=== PATIENT | female | born 1960 | race African-American/Black ===

== ENCOUNTER → 2017-04-02 | Outpatient (CLI) | payer OTHER, MEDICARE ==
--- NOTE | 2017-04-02 10:00 | RADIOLOGY REPORT (SQ) ---
EXAM DESCRIPTION: CT CHEST WITH COMPLETED DATE/TIME: 04/02/2017 9:12 am REASON FOR STUDY: LUNG CA (C34.12) C34.12 MALIGNANT NEOPLASM OF UPPER LOBE, LEFT BRONCHUS OR BOB COMPARISON: March 2016 TECHNIQUE: CT scan of the chest performed using helical scanning technique with dynamic intravenous contrast injection. Images reviewed with lung, soft tissue and bone windows. Reconstructed coronal and sagittal MPR images reviewed. All images stored on PACS. All CT scanners at this facility use dose modulation, iterative reconstruction, and/or weight based d osing when appropriate to reduce radiation dose to as low as reasonably achievable (ALARA). [facility]: Dose Right [facility]: CareDose [facility]: Dose Right [facility]: Teradose 4D [facility]: [employer] CONTRAST TYPE AND DOSE: contrast/concentration: Isovue 370.00 mg/ml; Total Contrast Delivered: 66.0 ml; Total Saline Delivered: 65.0 ml RENAL FUNCTION: Creatinine 0.9 RADIATION DOSE: Up-to-date CT equipment and radiation dose reduction techniques were employed. CTDIv ol: 4.4 - 9.2 mGy. DLP: 860 mGy-cm. . LIMITATIONS: None. FINDINGS: LUNGS AND PLEURA: The previously described postsurgical and post radiation changes in the left hemithorax with associated volume loss appears stable. No evidence for a recurrent mass is seen . The right lung remains clear. HILAR AND MEDIASTINAL STRUCTURES: No identified masses or abnormal nodes. HEART AND VASCULAR STRUCTURES: No aneurysm or dissection. No central pulmonary emboli. No pericardi al effusion. HARDWARE: Surgical clips are again identified in the left hilar region UPPER ABDOMEN: See results under abdominal CT scan THYROID AND OTHER SOFT TISSUES: No masses. No adenopathy. BONES: No significant finding. Postsurgical rib resections are again identified. OTHER: No other significant finding. IMPRESSION: Stable findings from the previous study. The previously described postsurgical and post radiation changes in the left hemithorax appears stable. No acute findings. Other findings as noted above TECHNICAL DOCUMENTATION: JOB ID: [id number] Quality ID # [id number]: Final reports with documentation of one or more dose reduction techniques (e.g., Au tomated exposure control, adjustment of the mA and/or kV according to patient size, use of iterative reconstruction technique) 2010 [employer]- All Rights Reserved
--- NOTE | 2017-04-02 10:28 | RADIOLOGY REPORT (SQ) ---
EXAM DESCRIPTION: CT ABD/PELVIS WITH IV ONLY COMPLETED DATE/TIME: 04/02/2017 9:12 am REASON FOR STUDY: LUNG CA (C34.12) C34.12 MALIGNANT NEOPLASM OF UPPER LOBE, LEFT BRONCHUS OR BOB COMPARISON: March 2016 TECHNIQUE: CT scan of the abdomen and pelvis performed using helical scanning technique with dynamic intravenous contrast injection. No oral contrast. Images reviewed with lung, soft tissue, and bone windows. Reconstructed coronal and sagittal MPR images reviewed. Delayed images for evaluation of the urinary system also acquired. All images stored on PACS. All CT scanners at this facility use dose modulation, iterative reconstruction, and/or weight based d osing when appropriate to reduce radiation dose to as low as reasonably achievable (ALARA). [facility]: Dose Right [facility]: CareDose [facility]: Dose Right [facility]: Teradose 4D [facility]: [employer] CONTRAST TYPE AND DOSE: 65 anusha Isovue 370 RENAL FUNCTION: Creatinine 0.9 RADIATION DOSE: . LIMITATIONS: None. FINDINGS: LOWER CHEST: No significant findings. No nodules or infiltrates. LIVER: Normal size. The previously described hypodensity in the right lobe of the liver most consist ent with an hemangioma appears stable. No other masses are identified. No dilated ducts. SPLEEN: Normal size. No focal lesions. PANCREAS: No masses. No significant calcifications. No adjacent inflammation or peripancreatic fluid collections. Pancreatic duct not dilated. GALLBLADDER: Status post cholecystectomy ADRENAL GLANDS: No significant masses or asymmetry. RIGHT KIDNEY AND URETER: No solid masses. No significant calcifications. No hydronephrosis or hyd roureter. LEFT KIDNEY AND URETER: No solid masses. No significant calcifications. No hydronephrosis or hydr oureter. AORTA AND VESSELS: No aneurysm. No dissection. Renal arteries, SMA, celiac without stenosis. RETROPERITONEUM: No retroperitoneal adenopathy, hemorrhage or masses. BOWEL AND PERITONEAL CAVITY: No masses or inflammatory changes. No free fluid or peritoneal masses. APPENDIX: Status post appendectomy PELVIS: No mass. No free fluid. Normal bladder. ABDOMINAL WALL: No masses. No hernias. BONES: No significant or acute findings. OTHER: No other significant finding. IMPRESSION: No significant interval changes compared to the previous study. No evidence for intra-a bdominopelvic metastatic disease. Findings as noted above TECHNICAL DOCUMENTATION: JOB ID: [id number] Quality ID # [id number]: Final reports with documentation of one or more dose reduction techniques (e.g., Au tomated exposure control, adjustment of the mA and/or kV according to patient size, use of iterative reconstruction technique) 2010 [employer]- All Rights Reserved
== END ==
LOC: RAD 08:30
PROVIDERS: ATTEND Internal Medicine
DX: C34.12 Malignant neoplasm of upper lobe, left bronchus or lung (principal)
CPT/HCPCS: 71260; 74177; 82565

== ENCOUNTER → 2018-04-04 | Outpatient (CLI) | payer OTHER, MEDICARE ==
--- NOTE | 2018-04-04 09:33 | RADIOLOGY REPORT (SQ) ---
EXAM DESCRIPTION: CT CHEST WITHOUT COMPLETED DATE/TIME: 04/04/2018 8:29 am REASON FOR STUDY: LUNG CA C34.12 MALIGNANT NEOPLASM OF UPPER LOBE, LEFT BRONCHUS OR BOB COMPARISON: 04/02/2017 TECHNIQUE: CT scan performed of the chest without intravenous contrast. Images reviewed with lung, soft tissue and bone windows. Reconstructed coronal and sagittal MPR images reviewed. All images st ored on PACS. All CT scanners at this facility use dose modulation, iterative reconstruction, and/or weight based d osing when appropriate to reduce radiation dose to as low as reasonably achievable (ALARA). [facility]: Dose Right [facility]: CareDose [facility]: Dose Right [facility]: Teradose 4D [facility]: [employer] RADIATION DOSE: CT Rad equipment meets quality standard of care and radiation dose reduction techniq ues were employed. CTDIvol: 3.8 mGy. DLP: 136 mGy-cm. mGy. LIMITATIONS: No technical limitations. FINDINGS: LUNGS AND PLEURA: Stable post operative and post radiation changes in the left hemithorax . Compensatory hypertrophy in the right lung. Minimal scattered areas of scar or atelectasis in the right middle and right lower lobes. No pneumothorax or pleural effusion. The central airways are carrie ar. HILAR AND MEDIASTINAL STRUCTURES: No significant interval changes. HEART AND VASCULAR STRUCTURES: No aneurysm. Stable small pericardial effusion. UPPER ABDOMEN: Stable hypoattenuated right hepatic lobe lesion. Prior cholecystectomy. Limited exa mination. THYROID AND OTHER SOFT TISSUES: No masses. No adenopathy. BONES: The osseous structures are stable in appearance. HARDWARE: None in the chest. OTHER: No other significant findings. IMPRESSION: 1 No significant interval changes since the prior examination dated 04/02/2017. 2. Stable post operative changes in the left hemithorax. 3. Additional stable findings as above. TECHNICAL DOCUMENTATION: JOB ID: [id number] Quality ID # [id number]: Final reports with documentation of one or more dose reduction techniques (e.g., Au tomated exposure control, adjustment of the mA and/or kV according to patient size, use of iterative reconstruction technique) 2010 [employer]- All Rights Reserved Reading location - IP/workstation name: [email or web address]
== END ==
LOC: RAD 07:42
PROVIDERS: ATTEND Internal Medicine
DX: C34.12 Malignant neoplasm of upper lobe, left bronchus or lung (principal)
CPT/HCPCS: 71250

== ENCOUNTER 2018-04-11 09:44 | Inpatient (IN) | payer OTHER, MEDICARE ==
[2018-04-11] MEDS ORDERED: DEXAMETHASONE SOD PHOS INJ 10 MG/1 ML VIAL IV ONE (09:50)
--- NOTE | 2018-04-11 10:27 | ER Document Report ---
ED General - General Chief Complaint: Altered Mental Status Stated Complaint: CONFUSION Time Seen by Provider: 04/11/18 09:49 TRAVEL OUTSIDE OF THE [place] IN LAST 30 DAYS: No - HPI Notes: 57-year-old female with a history of lung cancer presents to the emergency department after several weeks of headache nausea. Patient is being treated for lung cancer and was doing fine complained of a headache to her oncologist who then got a CT which showed multiple metastatic lesions. The oncologist sent the patient to the emergency department. His instructions were to give dexamethasone 10 mg. He has spoken with the primary care. Since her multiple lesions these are not really amenable to surgical excision and probably whole brain radiation will be needed. - Related Data Allergies/Adverse Reactions: No Known Allergies Allergy (Verified 04/11/18 09:44) Past Medical History - Social History Smoking Status: Never Smoker Chew tobacco use (# tins/day): No Frequency of alcohol use: None Drug Abuse: None Family History: None Patient has suicidal ideation: No Patient has homicidal ideation: No - Past Medical History Cardiac Medical History: Denies: Hx Coronary Artery Disease, Hx Heart Attack, Hx Hypertension Pulmonary Medical History: Denies: Hx Asthma, Hx Bronchitis, Hx COPD, Hx Pneumonia, Hx Tuberculosis Neurological Medical History: Denies: Hx Cerebrovascular Accident, Hx Seizures Renal/ Medical History: Denies: Hx Peritoneal Dialysis Malignancy Medical History: Reports: Hx Lung Cancer Musculoskeletal Medical History: Denies Hx Arthritis Past Surgical History: Reports: Hx Cholecystectomy - 1993, Hx Hysterectomy. Denies: Hx Pacemaker - Immunizations Hx Diphtheria, Pertussis, Tetanus Vaccination: No Hx Pneumococcal Vaccination: 08/08/12 Review of Systems - Review of Systems Cardiovascular: denies: Chest pain Respiratory: denies: Cough, Short of breath Gastrointestinal: Nausea. denies: Diarrhea, Constipation Neurological/Psychological: Headaches -: Yes All other systems reviewed and negative Physical Exam - Notes Notes: GENERAL_APPEARANCE: well_nourished, alert, cooperative, no_acute_distress, no_ obvious_discomfort. VITALS: reviewed, see vital signs table. HEAD: no_swelling\tenderness on the head. EYES: PERRL, EOMI, conjunctiva_clear. NOSE: no_nasal_discharge. MOUTH: (-)decreased moisture. THROAT: no_throat_inflammation, no_airway_obstruction. no_lymphadenopathy NECK: supple, no_neck_tenderness, (-)thyromegaly. BACK: no_back_tenderness. CHEST_WALL: no_chest_tenderness. Her thoracotomy scar left LUNGS: no_wheezing, no_rales, no_rhonchi, (-)accessory muscle use, good air exchange bilateral. HEART: normal_rate, normal_rhythm, normal_S1, normal_S2, (-)S3, (-)S4, no_ murmur, no_rub. ABDOMEN: normal_BS, soft, no_abd_tenderness, (-)guarding, (-)rebound, no_ organomegaly, no_abd_masses. EXTREMITIES: strength 5/5 in all_extremities, good pulses in all_extremities, no_swelling\tenderness in the extremities, no_edema. SKIN: warm, dry, good_color, no_rash. MENTAL_STATUS: speech_clear, oriented_X_3, normal_affect, responds_ appropriately to questions. NEURO: Neg Motor or Sensory Deficits on exam, CN 2-12 intact, DTR 2+ symmetric x 4, No cerbellar signs Course - Re-evaluation Re-evalutation: 04/11/18 10:23 57-year-old female presents with headache nausea for the last several weeks. Patient has a history of lung cancer which was nearly in remission but started complaining of a headache and her oncologist ordered a CT scan showing multiple metastatic lesions. The patient was sent here to the ER. She will be had given IV dexamethasone. Since her multiple lesions are not amenable to surgical excision. Patient will likely need whole brain radiation. I will speak with the patient's primary care doctor Dr. Rodriguez for admission. I spoke with Dr. Rodriguez he wanted the patient loaded with Keppra. Patient is also to receive a CT of abdomen and pelvis with IV contrast part of a metastatic survey. SHe will be seen inpatient by oncology. 04/11/18 12:24 - Laboratory Result Diagrams: 04/11/18 10:23 04/11/18 10:23 Laboratory results interpreted by me: 04/11/18 10:23 WBC 3.9 L - Diagnostic Test Radiology reviewed: Reports reviewed Radiology results interpreted by me: 04/11/18 12:20 MRI - 2 Brain lesions - see pacs Discharge - Discharge Clinical Impression: Neoplasm of brain causing mass effect on adjacent structures Condition: Good Disposition: ADMITTED INPATIENT Admitting Provider: Michael Unit Admitted: IMCU Referrals: JAVI QUAN MD [Primary Care Provider] - Follow up as needed
[2018-04-11 11:53] LABS: ABSOLUTE LYMPHOCYTES (AUTO) 1.2 10^3/uL (0.5-4.7); ABSOLUTE MONOCYTES (AUTO) 0.2 10^3/uL (0.1-1.4); ABSOLUTE NEUT (AUTO) 2.4 10^3/uL (1.7-8.2); BASOPHILS % (AUTO) 0.4 % (0-2); EOSINOPHILS % (AUTO) 0.7 % (0-6); HEMATOCRIT 40.5 % (36.0-47.0); LYMPHOCYTES % (AUTO) 31.5 % (13-45); MEAN CORPUSCULAR HEMOGLOBIN 31.8 pg (27.0-33.4); MEAN CORPUSCULAR HGB CONC 34.5 g/dL (32.0-36.0); MEAN CORPUSCULAR VOLUME 92 fl (80-97); MONOCYTES % (AUTO) 5.8 % (3-13); PLATELET COUNT 238 10^3/uL (150-450); RED BLOOD COUNT 4.39 10^6/uL (3.72-5.28); SEGMENTED NEUTROPHILS % (AUTO) 61.6 % (42-78); TOTAL CELLS COUNTED % (AUTO) 100 %; WHITE BLOOD COUNT 3.9 10^3/uL (4.0-10.5)
[2018-04-11] MEDS ORDERED: LEVETIRACETAM INJ/PF 500 MG/5 ML SDV IV ONE (12:22)
[2018-04-11 12:34] LABS: ALANINE AMINOTRANSFERASE 16 U/L (9-52); ALKALINE PHOSPHATASE 116 U/L (38-126); ANION GAP 14 (5-19); ASPARTATE AMINO TRANSFERASE 17 U/L (14-36); BILIRUBIN,DIRECT 0.2 mg/dL (0.0-0.4); BILIRUBIN,TOTAL 0.6 mg/dL (0.2-1.3); BLOOD UREA NITROGEN 11 mg/dL (7-20); CALCIUM 10.1 mg/dL (8.4-10.2); CARBON DIOXIDE 25 mmol/L (22-30); CHLORIDE 106 mmol/L (98-107); GLUCOSE 88 mg/dL (75-110); SODIUM 144.7 mmol/L (137-145); TOTAL PROTEIN 7.4 g/dL (6.3-8.2)
[2018-04-11] MEDS ORDERED: ACETAMINOPHEN 325 MG TABLET PO PRN (13:20)
--- NOTE | 2018-04-11 15:31 | RADIOLOGY REPORT (SQ) ---
EXAM DESCRIPTION: CT ABD/PELVIS WITH IV ONLY COMPLETED DATE/TIME: 04/11/2018 2:39 pm REASON FOR STUDY: hx of Lung cancer - mets COMPARISON: 04/02/2017 TECHNIQUE: CT scan of the abdomen and pelvis performed using helical scanning technique with dynamic intravenous contrast injection. No oral contrast. Images reviewed with lung, soft tissue, and bone windows. Reconstructed coronal and sagittal MPR images reviewed. Delayed images for evaluation of the urinary system also acquired. All images stored on PACS. All CT scanners at this facility use dose modulation, iterative reconstruction, and/or weight based d osing when appropriate to reduce radiation dose to as low as reasonably achievable (ALARA). [facility]: Dose Right [facility]: CareDose [facility]: Dose Right [facility]: Teradose 4D [facility]: [employer] CONTRAST TYPE AND DOSE: contrast/concentration: Isovue 370.00 mg/ml; Total Contrast Delivered: 66.0 ml; Total Saline Delivered: 65.0 ml RENAL FUNCTION: BUN 11 creatinine 0.8 RADIATION DOSE: CT Rad equipment meets quality standard of care and radiation dose reduction techniq ues were employed. CTDIvol: 5.2 - 6.5 mGy. DLP: 608 mGy-cm.. LIMITATIONS: None. FINDINGS: LOWER CHEST: There is reduced volume in the left lung. No pulmonary masses are present. LIVER: There is a stable low-density lesion in the right lobe of the liver that measures 33.8 mm. Th is measured 33.6 mm on the earlier study. SPLEEN: Normal size. No focal lesions. PANCREAS: No masses. No significant calcifications. No adjacent inflammation or peripancreatic fluid collections. Pancreatic duct not dilated. GALLBLADDER: Surgically absent. ADRENAL GLANDS: No significant masses or asymmetry. RIGHT KIDNEY AND URETER: No solid masses. No significant calcifications. No hydronephrosis or hyd roureter. LEFT KIDNEY AND URETER: No solid masses. No significant calcifications. No hydronephrosis or hydr oureter. AORTA AND VESSELS: No aneurysm. No dissection. Renal arteries, SMA, celiac without stenosis. RETROPERITONEUM: No retroperitoneal adenopathy, hemorrhage or masses. BOWEL AND PERITONEAL CAVITY: No masses or inflammatory changes. No free fluid or peritoneal masses. APPENDIX: Not identified. PELVIS: No mass. No free fluid. Normal bladder. ABDOMINAL WALL: No masses. No hernias. BONES: No significant or acute findings. OTHER: No other significant finding. IMPRESSION: There is a stable low-density lesion in the right lobe of the liver. There are no acute findings in the abdomen or pelvis. TECHNICAL DOCUMENTATION: JOB ID: [id number] Quality ID # [id number]: Final reports with documentation of one or more dose reduction techniques (e.g., Au tomated exposure control, adjustment of the mA and/or kV according to patient size, use of iterative reconstruction technique) 2010 [employer]- All Rights Reserved Reading location - IP/workstation name: [email or web address]
--- NOTE | 2018-04-11 17:43 | PDOC H&P ---
History of Present Illness Admission Date/PCP: 04/11/18 12:48 JAVI QUAN MD Patient complains of: Headache [place] Spur lesion History of Present Illness: KRYSTAL TOURE is a 57 year old female This is a 57-year-old femaleStage III lung cancer status post lung resections and chemotherapy basically apparently doing well recently noticed increasing the headaches and not feeling well and and per family diff for world and rt eye problem also having some abdominal pain and diarrhea underwent for the MRI of the head with subsequent left-sided brain lesion the multiple areas and as per discussed with the oncology decided to admit for further evaluation Patient's otherwise denied any chest pain denied any shortness of the breath Patient's denied any fever or chills Patient CT scan of the abdomen and pelvis is pretty stable except small lesion in the liver Past Medical History Cardiac Medical History: Denies: Coronary Artery Disease, Myocardial Infarction, Hypertension Pulmonary Medical History: Denies: Asthma, Bronchitis, Chronic Obstructive Pulmonary Disease (COPD), Pneumonia, Tuberculosis Neurological Medical History: Denies: Seizures Malignancy Medical History: Reports: Lung Cancer Musculoskeltal Medical History: Denies: Arthritis Hematology: Denies: Anemia Past Surgical History Past Surgical History: Reports: Cholecystectomy - 1993, Hysterectomy, Other - Left-sided lobectomy Denies: Pacemaker Social History Smoking Status: Never Smoker Frequency of Alcohol Use: None Hx Recreational Drug Use: No Hx Prescription Drug Abuse: No Family History Family History: None, Reviewed & Not Pertinent Parental Family History Reviewed: Yes Children Family History Reviewed: Yes Sibling(s) Family History Reviewed.: Yes Medication/Allergy Home Medications: No Home Medications 04/11/18 Allergies/Adverse Reactions: No Known Allergies Allergy (Verified 04/11/18 09:44) Review of Systems Constitutional: PRESENT: headache(s), weakness, weight loss. ABSENT: chills, fever(s), weight gain Eyes: ABSENT: visual disturbances Ears: ABSENT: hearing changes Nose, Mouth, and Throat: PRESENT: headache(s) Cardiovascular: ABSENT: chest pain, dyspnea on exertion, edema, orthropnea, palpitations Respiratory: ABSENT: cough, hemoptysis Gastrointestinal: ABSENT: abdominal pain, constipation, diarrhea, hematemesis, hematochezia, nausea, vomiting Genitourinary: ABSENT: dysuria, hematuria Musculoskeletal: ABSENT: joint swelling Integumentary: ABSENT: rash, wounds Neurological: ABSENT: abnormal gait, abnormal speech, confusion, dizziness, focal weakness, syncope Psychiatric: ABSENT: anxiety, depression, homidical ideation, suicidal ideation Endocrine: ABSENT: cold intolerance, heat intolerance, menstrual abnormalities, polydipsia, polyuria Hematologic/Lymphatic: ABSENT: easy bleeding, easy bruising, lymphadenopathy Physical Exam Vital Signs: Temp Pulse Resp BP Pulse Ox 98 15 125/79 97 04/11/18 15:00 04/11/18 16:01 04/11/18 16:01 04/11/18 16:01 General appearance: PRESENT: no acute distress, well-developed, well-nourished Head exam: PRESENT: atraumatic, normocephalic Eye exam: PRESENT: conjunctiva pink, EOMI, PERRLA. ABSENT: scleral icterus Ear exam: PRESENT: normal external ear exam Mouth exam: PRESENT: moist, tongue midline Neck exam: PRESENT: full ROM. ABSENT: carotid bruit, JVD, lymphadenopathy, thyromegaly Respiratory exam: PRESENT: clear to auscultation leigh ann Cardiovascular exam: PRESENT: RRR. ABSENT: diastolic murmur, rubs, systolic murmur Pulses: PRESENT: normal dorsalis pedis pul, +2 pedal pulses bilateral Vascular exam: PRESENT: normal capillary refill GI/Abdominal exam: PRESENT: normal bowel sounds, soft. ABSENT: distended, guarding, mass, organolmegaly, rebound, tenderness Rectal exam: PRESENT: deferred Extremities exam: ABSENT: pedal edema Neurological exam: PRESENT: alert, awake, oriented to person, oriented to place , oriented to time, oriented to situation, CN II-XII grossly intact. ABSENT: motor sensory deficit Additional comments: diff for word Psychiatric exam: PRESENT: appropriate affect, normal mood. ABSENT: homicidal ideation, suicidal ideation Skin exam: PRESENT: dry, intact, warm. ABSENT: cyanosis, rash Results Impressions: Abdomen/Pelvis CT 04/11/18 12:23 IMPRESSION: There is a stable low-density lesion in the right lobe of the liver. There are no acute findings in the abdomen or pelvis. Assessment & Plan - Diagnosis (1) Lung cancer Qualifiers: Lung location: unspecified part of lung Is this a current diagnosis for this admission?: Yes Plan: Consult the oncology (2) Neoplasm of brain causing mass effect on adjacent structures Is this a current diagnosis for this admission?: Yes Plan: Start the patient on the dexamethasone IV start the patient on a Keppra IV fluid and continues to monitor Follow with the oncology - Time Time Spent: 30 to 50 Minutes Medications reviewed and adjusted accordingly: Yes Anticipated discharge: Home Within: Other - Inpatient Certification Medical Necessity: Need Close Monitoring Due to Risk of Patient Decompensation, Need For IV Fluids Post Hospital Care: D/C Payroll Associate Documentation - Plan Summary Plan Summary: Continues to current medications See other MD orders d/w pt son on bed side about all mri repaort and all paln and f/u oncolgy
--- NOTE | 2018-04-11 17:59 | PDOC TRANSFER SUMMARY ---
General Admission Date/PCP: 04/11/18 12:48 JAVI QUAN MD Transfer Date: 04/11/18 Accepting Facility: [facility] Resuscitation Status: Full Code - Transfer Diagnosis (1) Lung cancer Is this a current diagnosis for this admission?: Yes (2) Neoplasm of brain causing mass effect on adjacent structures Is this a current diagnosis for this admission?: Yes - Transfer Medications Home Medications: No Home Medications 04/11/18 Transfer Medications: Current Medications Acetaminophen (Tylenol 325 Mg Tablet) 650 mg PO Q4HP PRN PRN Reason: FOR PAIN Stop: 05/11/18 13:19 Dexamethasone Sodium Phosphate (Decadron Inj 4 Mg/Ml Vial) 4 mg IV Q6 ZHEN Stop: 05/11/18 17:59 Levetiracetam (Keppra 500 Mg Tablet) 500 mg PO Q12 ZHEN Stop: 05/11/18 21:59 - Allergies Allergies/Adverse Reactions: No Known Allergies Allergy (Verified 04/11/18 09:44) Hospital Course Hospital Course: This is a 57-year-old female history of the stage III lung cancer status post lobectomy recently went to see oncology for the routine follow-up for the CT of the chest was all normal but patient was complaining of a headache and patient was complaining of difficulty in word and patient underwent for the MRI of the head with so some large metastatic lesion on the left and the right side and at this point decided to admit the patient will start the patient on IV dexamethasone and a Keppra Otherwise patient denied any chest pain denied any shortness of the breath CT abdomen pelvis was all stable Denied any other symptom except the right side of the eye some difficulty to see and patient have some incontinent in the urine Oncology discussed the neurosurgery and discussed with the patient's family in the room and agree to transport to the [facility] for further evaluations Physical Exam Vital Signs: Temp Pulse Resp BP Pulse Ox 98.0 F 72 16 127/86 H 99 04/11/18 17:05 04/11/18 17:05 04/11/18 17:05 04/11/18 17:05 04/11/18 17:05 Intake & Output 04/10/18 04/11/18 04/12/18 06:59 06:59 06:59 Weight 60.781 kg General appearance: PRESENT: no acute distress, well-developed, well-nourished Head exam: PRESENT: atraumatic, normocephalic Eye exam: PRESENT: conjunctiva pink, EOMI, PERRLA. ABSENT: scleral icterus Ear exam: PRESENT: normal external ear exam Mouth exam: PRESENT: moist, tongue midline Neck exam: ABSENT: carotid bruit, JVD, lymphadenopathy, thyromegaly Respiratory exam: PRESENT: clear to auscultation leigh ann. ABSENT: rales, rhonchi, wheezes Cardiovascular exam: PRESENT: RRR. ABSENT: diastolic murmur, rubs, systolic murmur Pulses: PRESENT: normal dorsalis pedis pul Vascular exam: PRESENT: normal capillary refill GI/Abdominal exam: PRESENT: normal bowel sounds, soft. ABSENT: distended, guarding, mass, organolmegaly, rebound, tenderness Rectal exam: PRESENT: deferred Extremities exam: PRESENT: full ROM. ABSENT: calf tenderness, clubbing, pedal edema Neurological exam: PRESENT: alert, awake, oriented to person, oriented to place , oriented to time, oriented to situation, CN II-XII grossly intact. ABSENT: motor sensory deficit Psychiatric exam: PRESENT: appropriate affect, normal mood. ABSENT: homicidal ideation, suicidal ideation Skin exam: PRESENT: dry, intact, warm. ABSENT: cyanosis, rash Results Impressions: Abdomen/Pelvis CT 04/11/18 12:23 IMPRESSION: There is a stable low-density lesion in the right lobe of the liver. There are no acute findings in the abdomen or pelvis. Plan Time Spent: Greater than 30 Minutes - pt transfer to neurosurgical service when the bed available
[2018-04-11] MEDS ORDERED: DEXAMETHASONE SOD PHOSPHATE INJ 4 MG/1 ML VIAL IV SCH (18:00)
--- NOTE | 2018-04-11 18:14 | PDOC CONSULTATION ---
Consultation Consult Date: 04/11/18 Attending physician:: YONATAN RODRIGUEZ Consult reason:: Brain mets, stage III lung ca History of Present Illness Admission Date/PCP: 04/11/18 12:48 JAVI QUAN MD Patient complains of: Confusion, stage III lung ca History of Present Illness: KRYSTAL TOURE is a 57 year old female with known history of stage III adenocarcinoma of the lung, she had surgery in 2012, then she had concurrent chemoradiation with kotlik/Alimta completed in 01/2013. Since then we have been following her with surveillance imaging, and she came to see me for her final and last 5th year surveillance imaging. At that time she was having some expressive aphasia, complaining of 3 week history of recurrent headaches and vision changes, also complained of some diarrhea and abdominal discomfort. Ultimately, we center for MRI of the brain which unfortunately indicates 4.6 cm left frontal lobe brain lesion, and a 1.3 cm left occipital lobe lesion. She had a CT of the chest done which was negative for recurrence, she had CT of the abdomen pelvis done which indicated a nondescript liver lesion however we have evaluated this in the past with PET/CT, and this has been negative in the past. That lesion has not significantly changed over the last 4 years. Otherwise, she is able to talk seems a little bit more awake and alert today. She is received 10 mg of IV dexamethasone. Past Medical History Cardiac Medical History: Denies: Coronary Artery Disease, Myocardial Infarction, Hypertension Pulmonary Medical History: Denies: Asthma, Bronchitis, Chronic Obstructive Pulmonary Disease (COPD), Pneumonia, Tuberculosis Neurological Medical History: Denies: Seizures Malignancy Medical History: Reports: Lung Cancer Musculoskeltal Medical History: Denies: Arthritis Hematology: Denies: Anemia Past Surgical History Past Surgical History: Reports: Cholecystectomy - 1993, Hysterectomy, Other - Left-sided lobectomy Denies: Pacemaker Social History Information Source: Patient Smoking Status: Never Smoker Frequency of Alcohol Use: None Hx Recreational Drug Use: No Hx Prescription Drug Abuse: No - Advance Directive Resuscitation Status: Full Code Family History Family History: None, Reviewed & Not Pertinent Parental Family History Reviewed: Yes Children Family History Reviewed: Yes Sibling(s) Family History Reviewed.: Yes Medication/Allergy Home Medications: No Home Medications 04/11/18 Allergies/Adverse Reactions: No Known Allergies Allergy (Verified 04/11/18 09:44) Review of Systems Constitutional: PRESENT: anorexia, weakness Eyes: PRESENT: visual disturbances Cardiovascular: ABSENT: chest pain, dyspnea on exertion, edema, orthropnea, palpitations Gastrointestinal: PRESENT: nausea Neurological: PRESENT: abnormal speech, confusion, memory loss Psychiatric: ABSENT: anxiety, depression, homidical ideation, suicidal ideation Endocrine: ABSENT: cold intolerance, heat intolerance, polydipsia, polyuria Physical Exam Vital Signs: Temp Pulse Resp BP Pulse Ox 98.0 F 72 16 127/86 H 99 04/11/18 17:05 04/11/18 17:05 04/11/18 17:05 04/11/18 17:05 04/11/18 17:05 Intake & Output 04/10/18 04/11/18 04/12/18 06:59 06:59 06:59 Weight 60.781 kg General appearance: PRESENT: no acute distress, well-developed, well-nourished Head exam: PRESENT: atraumatic, normocephalic Eye exam: PRESENT: conjunctiva pink, EOMI, PERRLA. ABSENT: scleral icterus Ear exam: PRESENT: normal external ear exam Mouth exam: PRESENT: moist, tongue midline Neck exam: ABSENT: carotid bruit, JVD, lymphadenopathy, thyromegaly Respiratory exam: PRESENT: clear to auscultation leigh ann. ABSENT: rales, rhonchi, wheezes Cardiovascular exam: PRESENT: RRR. ABSENT: diastolic murmur, rubs, systolic murmur Pulses: PRESENT: normal dorsalis pedis pul Vascular exam: PRESENT: normal capillary refill GI/Abdominal exam: PRESENT: normal bowel sounds, soft. ABSENT: distended, guarding, mass, organolmegaly, rebound, tenderness Rectal exam: PRESENT: deferred Extremities exam: PRESENT: full ROM. ABSENT: calf tenderness, clubbing, pedal edema Neurological exam: PRESENT: alert, awake, oriented to person, oriented to place , oriented to time, oriented to situation, CN II-XII grossly intact. ABSENT: motor sensory deficit Psychiatric exam: PRESENT: appropriate affect, normal mood. ABSENT: homicidal ideation, suicidal ideation Skin exam: PRESENT: dry, intact, warm. ABSENT: cyanosis, rash Results Impressions: Abdomen/Pelvis CT 04/11/18 12:23 IMPRESSION: There is a stable low-density lesion in the right lobe of the liver. There are no acute findings in the abdomen or pelvis. Status: Image reviewed by me Assessment & Plan - Diagnosis (1) Neoplasm of brain causing mass effect on adjacent structures Is this a current diagnosis for this admission?: Yes Plan: Likely metastatic lesion, probably from the original lung cancer, today had a long discussion with her treating physician Dr. Rodriguez, as well as neurosurgery at [facility], Dr. Phuc Love, and we will feel that she would be a surgical candidate. Dr. Love felt like with 2 solitary lesions she would be a metastatectomy candidate. Thereafter she may be Cyber[employer] candidate. Therefore we will plan for transfer to [facility] under the care of neurosurgery. Today spent long discussion with family, spent greater than 70 minutes in discussion and coordination of care. (2) Lung cancer Qualifiers: Laterality: right Lung location: unspecified part of lung Qualified Code( s): C34.91 - Malignant neoplasm of unspecified part of right bronchus or lung Is this a current diagnosis for this admission?: Yes Plan: Previously had stage III lung cancer, current restaging imaging does not show any other systemic disease other than the brain. - Time Time Spent: Greater than 70 Minutes - Inpatient Certification Based on my medical assessment, after consideration of the patient's comorbidities, presenting symptoms, or acuity I expect that the services needed warrant INPATIENT care.: Yes I certify that my determination is in accordance with my understanding of Medicare's requirements for reasonable and necessary INPATIENT services [42 CFR 412.3e].: Yes Medical Necessity: Need for Neurological Checks, Need for Surgery, Risk of Complication if Not Cared For in Hospital
[2018-04-11 21:41] VITALS: BP 145/78
[2018-04-11] MEDS ORDERED: LEVETIRACETAM 500 MG TABLET PO SCH (22:00)
== END 2018-04-11 21:18 | disposition short-term general hospital (02) | DRG 55 ==
LOC: ER 09:44 → EH 12:48 → 3N 17:01
PROVIDERS: ADMIT Family Medicine; ATTEND Family Medicine
DX: C79.31 Secondary malignant neoplasm of brain (principal); C34.91 Malignant neoplasm of unspecified part of right bronchus or lung; R47.01 Aphasia; R51 Headache; Z90.49 Acquired absence of other specified parts of digestive tract; Z90.710 Acquired absence of both cervix and uterus; Z90.2 Acquired absence of lung [part of]; Z92.21 Personal history of antineoplastic chemotherapy
CPT/HCPCS: 36415; 74177; 80053; 85025; 96374; 99285; J1100; J1953

== ENCOUNTER → 2018-04-11 | Outpatient (CLI) | payer OTHER, MEDICARE ==
--- NOTE | 2018-04-11 10:00 | RADIOLOGY REPORT (SQ) ---
EXAM DESCRIPTION: MRI HEAD COMBO COMPLETED DATE/TIME: 04/11/2018 9:33 am REASON FOR STUDY: LUNG CA C34.12 MALIGNANT NEOPLASM OF UPPER LOBE, LEFT BRONCHUS OR BOB COMPARISON: 06/29/2012 TECHNIQUE: Multiplanar imaging includes noncontrasted T1, T2, FLAIR, diffusion with ADC map and post gadolinium contrast T1 sequences. Images stored on PACS. CONTRAST TYPE AND DOSE: 10 mL Prohance. RENAL FUNCTION: GFR > 60. LIMITATIONS: None. FINDINGS: There is a cystic ring-enhancing intra-axial mass with mural nodule in the left frontal lo be measuring about 4.6 x 3.6 x 4.7 cm AP by transverse by craniocaudal diameter. There is a smaller, similar-appearing lesion in the left occipital lobe measuring about 1.3 x 1.4 cm. There is consider able cytotoxic and vasogenic edema associated with the left frontal lobe lesion approximately 10 mm o f bidm-io-rhkac midline shift. No hemorrhage. No evidence of acute infarct. IMPRESSION: Large metastatic lesion in the left frontal lobe with 10 mm of midline shift. EVIDENCE OF ACUTE STROKE: NO. COMMENT: These findings were called to Dr. Cortez. TECHNICAL DOCUMENTATION: JOB ID: [id number] [employer]- All Rights Reserved Reading location - IP/workstation name: [email or web address]
== END ==
LOC: RAD 08:18
PROVIDERS: ATTEND Internal Medicine
DX: C34.12 Malignant neoplasm of upper lobe, left bronchus or lung (principal); R51 Headache; C79.31 Secondary malignant neoplasm of brain
CPT/HCPCS: 82565; 70553; A9576

== ENCOUNTER → 2018-08-01 | Outpatient (CLI) | payer OTHER, MEDICARE ==
--- NOTE | 2018-08-01 14:44 | RADIOLOGY REPORT (SQ) ---
EXAM DESCRIPTION: CT CHEST WITH COMPLETED DATE/TIME: 08/01/2018 10:03 am REASON FOR STUDY: LUNG CA (C34.12) C34.12 MALIGNANT NEOPLASM OF UPPER LOBE, LEFT BRONCHUS OR BOB COMPARISON: 04/04/2018 and 04/02/2017. TECHNIQUE: CT scan of the chest performed using helical scanning technique with dynamic intravenous contrast injection. Images reviewed with lung, soft tissue and bone windows. Reconstructed coronal and sagittal MPR and MIP images reviewed. All images stored on PACS. All CT scanners at this facility use dose modulation, iterative reconstruction, and/or weight based d osing when appropriate to reduce radiation dose to as low as reasonably achievable (ALARA). [facility]: Dose Right [facility]: CareDose [facility]: Dose Right [facility]: Teradose 4D [facility]: Portfolium CONTRAST TYPE AND DOSE: contrast/concentration: Isovue 350.00 mg/ml; Total Contrast Delivered: 67.0 ml; Total Saline Delivered: 65.0 ml RENAL FUNCTION: BUN 17 creatinine 0.9. RADIATION DOSE: CT Rad equipment meets quality standard of care and radiation dose reduction techniq ues were employed. CTDIvol: 4.5 - 4.5 mGy. DLP: 624 mGy-cm. . LIMITATIONS: None. FINDINGS: LUNGS AND PLEURA: Stable surgical changes on the left with volume loss. Stable posttreatm ent scarring in the perihilar left lung. The right lung is clear. No worrisome nodules or masses. No pleural effusion. No pleural thickening or calcification. HILAR AND MEDIASTINAL STRUCTURES: No identified masses or abnormal nodes. HEART AND VASCULAR STRUCTURES: No aneurysm or dissection. No central pulmonary emboli. No pericardi al effusion. HARDWARE: Surgical clips. UPPER ABDOMEN: No significant findings. Limited exam. THYROID AND OTHER SOFT TISSUES: No masses. No adenopathy. BONES: No acute finding. Surgical changes with left rib resections. OTHER: No other significant finding. IMPRESSION: STABLE CT OF THE CHEST WITH IV CONTRAST. STABLE SURGICAL CHANGES AND TREATMENT CHANGES IN THE LEFT LUNG. NO EVIDENCE OF RECURRENT OR PROGRESSIVE DISEASE OR CHEST METASTASES. TECHNICAL DOCUMENTATION: JOB ID: [id number] Quality ID # [id number]: Final reports with documentation of one or more dose reduction techniques (e.g., Au tomated exposure control, adjustment of the mA and/or kV according to patient size, use of iterative reconstruction technique) 2010 [employer]- All Rights Reserved Reading location - IP/workstation name: [email or web address] UP [email or web address]
--- NOTE | 2018-08-01 14:54 | RADIOLOGY REPORT (SQ) ---
EXAM DESCRIPTION: CT ABD/PELVIS WITH IV ONLY COMPLETED DATE/TIME: 08/01/2018 10:03 am REASON FOR STUDY: LUNG CA (C34.12) C34.12 MALIGNANT NEOPLASM OF UPPER LOBE, LEFT BRONCHUS OR BOB COMPARISON: 04/11/2018, 04/02/2017, and 03/17/2016. TECHNIQUE: CT scan of the abdomen and pelvis performed using helical scanning technique with dynamic intravenous contrast injection. No oral contrast. Images reviewed with lung, soft tissue, and bone windows. Reconstructed coronal and sagittal MPR images reviewed. Delayed images for evaluation of the urinary system also acquired. All images stored on PACS. All CT scanners at this facility use dose modulation, iterative reconstruction, and/or weight based d osing when appropriate to reduce radiation dose to as low as reasonably achievable (ALARA). [facility]: Dose Right [facility]: CareDose [facility]: Dose Right [facility]: Teradose 4D [facility]: Twice CONTRAST TYPE AND DOSE: 67 mL Omnipaque 350- low osmolar. RENAL FUNCTION: BUN 17 creatinine 0.9. RADIATION DOSE: . LIMITATIONS: None. FINDINGS: LOWER CHEST: See separate report of the CT of the chest. LIVER: Normal size. Stable low-attenuation lesion in the posterior right lobe, currently measuring j ust under 3 cm. No new masses. No dilated ducts. SPLEEN: Normal size. No focal lesions. PANCREAS: No masses. No significant calcifications. No adjacent inflammation or peripancreatic fluid collections. Pancreatic duct not dilated. GALLBLADDER: Surgically absent. ADRENAL GLANDS: No significant masses or asymmetry. RIGHT KIDNEY AND URETER: No solid masses. No significant calcifications. No hydronephrosis or hyd roureter. LEFT KIDNEY AND URETER: No solid masses. No significant calcifications. No hydronephrosis or hydr oureter. AORTA AND VESSELS: No aneurysm. No dissection. Renal arteries, SMA, celiac without stenosis. RETROPERITONEUM: No retroperitoneal adenopathy, hemorrhage or masses. BOWEL AND PERITONEAL CAVITY: No masses or inflammatory changes. No free fluid or peritoneal masses. APPENDIX: Surgically absent. PELVIS: No mass. No free fluid. Normal bladder. ABDOMINAL WALL: No masses. No hernias. BONES: No significant or acute findings. OTHER: No other significant finding. IMPRESSION: STABLE CT OF THE ABDOMEN AND PELVIS. STABLE LOW-ATTENUATION LESION IN THE RIGHT LOBE OF THE LIVER, MOST LIKELY A HEMANGIOMA. NO ACUTE FINDINGS. NO CT EVIDENCE OF METASTATIC INVOLVEMENT I N THE ABDOMEN OR PELVIS. TECHNICAL DOCUMENTATION: JOB ID: [id number] Quality ID # 436: Final reports with documentation of one or more dose reduction techniques (e.g., Au tomated exposure control, adjustment of the mA and/or kV according to patient size, use of iterative reconstruction technique) 2010 [employer]- All Rights Reserved Reading location - IP/workstation name: [email or web address]
== END ==
LOC: RAD 09:23
PROVIDERS: ATTEND Internal Medicine
DX: C34.12 Malignant neoplasm of upper lobe, left bronchus or lung (principal); K76.9 Liver disease, unspecified
CPT/HCPCS: 71260; 74177

== ENCOUNTER → 2018-08-03 | Outpatient (CLI) | payer OTHER, MEDICARE ==
--- NOTE | 2018-08-03 11:26 | RADIOLOGY REPORT (SQ) ---
EXAM DESCRIPTION: MRI HEAD COMBO COMPLETED DATE/TIME: 08/03/2018 11:01 am REASON FOR STUDY: LUNG CA (C34.12), BRAIN CA (C79.31) C34.12 MALIGNANT NEOPLASM OF UPPER LOBE, LEFT BRONCHUS OR BOB COMPARISON: MRI brain 04/11/2018, 06/29/2012 TECHNIQUE: Multiplanar imaging includes noncontrasted T1, T2, FLAIR, diffusion with ADC map and post gadolinium contrast T1 sequences. Images stored on PACS. CONTRAST TYPE AND DOSE: 10 mL Dotarem. RENAL FUNCTION: GFR > 60. LIMITATIONS: None. FINDINGS: ANATOMY: No congenital anomalies. Normal vascular flow voids. Pituitary fossa normal. CSF SPACES: Normal in size and contour. No hemorrhage. CEREBRUM: Since the prior MRI 04/11/2018, patient has undergone left frontal craniotomy and resection of a brain metastatic lesion. On the current exam, there is a cystic area of encephalomalacia with v bárbara thin rim gadolinium enhancement in the anterior left frontal lobe over the convexity, measuring 3 .8 cm transverse by 2.4 cm AP by 2.8 cm craniocaudad. No local mass effect. No significant surround ing vasogenic edema. Only minimal rim of increased signal surrounding the encephalomalacia on FLAIR images from gliosis. There is a thin rim enhancing cystic metastatic lesion in the left occipital lobe measuring 1 x 1 cm in size (was 1.4 x 1.3 cm on 04/11/2018). No other enhancing brain parenchymal lesions are present. No MR evidence of acute ischemic change, acute intracranial hemorrhage, mass effect, or midline shift . POSTERIOR FOSSA: No signal alteration. No hemorrhage. No edema, masses, or mass effect. Internal shyam tory canals, cerebellopontine angles, mastoids normal. No enhancing lesions. No abnormal enhancement post contrast. DIFFUSION IMAGING: Negative for acute or subacute infarction. ORBITS: No masses. Globes normal. PARANASAL SINUSES: No fluid levels. Mucosa normal. OTHER: No other significant finding. IMPRESSION: Post left frontal craniotomy and resection of a left frontal brain metastatic lesion. P ostoperative changes left frontal lobe without definite MR evidence of residual or recurrent tumor. Decrease in size of left occipital thin rim enhancing cortical metastatic lesion compared to 8 EVIDENCE OF ACUTE STROKE: NO. TECHNICAL DOCUMENTATION: JOB ID: [id number]- All Rights Reserved Reading location - IP/workstation name: [email or web address]
== END ==
LOC: RAD 09:52
PROVIDERS: ATTEND Internal Medicine
DX: C34.12 Malignant neoplasm of upper lobe, left bronchus or lung (principal); C79.31 Secondary malignant neoplasm of brain
CPT/HCPCS: 70553; A9576

== ENCOUNTER → 2018-10-10 | Outpatient (CLI) | payer OTHER, MEDICARE ==
--- NOTE | 2018-10-10 09:35 | RADIOLOGY REPORT (SQ) ---
EXAM DESCRIPTION: CT ABD/PELVIS WITH IV ONLY COMPLETED DATE/TIME: 10/10/2018 9:04 am REASON FOR STUDY: LUNG CA (C34.12) C34.12 MALIGNANT NEOPLASM OF UPPER LOBE, LEFT BRONCHUS OR BOB COMPARISON: 08/01/2018 TECHNIQUE: CT scan of the abdomen and pelvis performed using helical scanning technique with dynamic intravenous contrast injection. No oral contrast. Images reviewed with lung, soft tissue, and bone windows. Reconstructed coronal and sagittal MPR images reviewed. Delayed images for evaluation of the urinary system also acquired. All images stored on PACS. All CT scanners at this facility use dose modulation, iterative reconstruction, and/or weight based d osing when appropriate to reduce radiation dose to as low as reasonably achievable (ALARA). [facility]: Dose Right [facility]: CareDose [facility]: Dose Right [facility]: Teradose 4D [facility]: SlideRocket CONTRAST TYPE AND DOSE: contrast/concentration: Isovue 350.00 mg/ml; Total Contrast Delivered: 71.0 ml; Total Saline Delivered: 66.0 ml RENAL FUNCTION: Creatinine 0.8 RADIATION DOSE: CT Rad equipment meets quality standard of care and radiation dose reduction techniq ues were employed. CTDIvol: 4.4 - 4.6 mGy. DLP: 613 mGy-cm.. LIMITATIONS: None. FINDINGS: LOWER CHEST: There are stable postsurgical and probable postradiation changes on the left with scarring surrounding the left hilum and volume loss. No acute consolidation. No suspicious pul monary nodules. LIVER: Stable hemangioma in the medial right lobe of liver. No suspicious findings. SPLEEN: Normal size. No focal lesions. PANCREAS: No masses. No significant calcifications. No adjacent inflammation or peripancreatic fluid collections. Pancreatic duct not dilated. GALLBLADDER: Surgically absent. ADRENAL GLANDS: No significant masses or asymmetry. RIGHT KIDNEY AND URETER: No solid masses. No significant calcifications. No hydronephrosis or hyd roureter. LEFT KIDNEY AND URETER: No solid masses. No significant calcifications. No hydronephrosis or hydr oureter. AORTA AND VESSELS: No aneurysm. No dissection. Renal arteries, SMA, celiac without stenosis. RETROPERITONEUM: No retroperitoneal adenopathy, hemorrhage or masses. BOWEL AND PERITONEAL CAVITY: No masses or inflammatory changes. No free fluid or peritoneal masses. APPENDIX: Not visualized. PELVIS: No mass. No free fluid. Normal bladder. ABDOMINAL WALL: No masses. No hernias. BONES: No significant or acute findings. OTHER: No other significant finding. IMPRESSION: Stable CT abdomen and pelvis. No evidence of metastatic disease. Single hepatic lesion remains most consistent with hemangioma. TECHNICAL DOCUMENTATION: JOB ID: [id number] Quality ID # [id number]: Final reports with documentation of one or more dose reduction techniques (e.g., Au tomated exposure control, adjustment of the mA and/or kV according to patient size, use of iterative reconstruction technique) 2010 [employer]- All Rights Reserved Reading location - IP/workstation name: [email or web address]-
--- NOTE | 2018-10-10 09:36 | RADIOLOGY REPORT (SQ) ---
EXAM DESCRIPTION: CT CHEST WITH COMPLETED DATE/TIME: 10/10/2018 9:04 am REASON FOR STUDY: LUNG CA (C34.12) C34.12 MALIGNANT NEOPLASM OF UPPER LOBE, LEFT BRONCHUS OR BOB COMPARISON: 08/01/2018 TECHNIQUE: CT scan of the chest performed using helical scanning technique with dynamic intravenous contrast injection. Images reviewed with lung, soft tissue and bone windows. Reconstructed coronal and sagittal MPR and MIP images reviewed. All images stored on PACS. All CT scanners at this facility use dose modulation, iterative reconstruction, and/or weight based d osing when appropriate to reduce radiation dose to as low as reasonably achievable (ALARA). [facility]: Dose Right [facility]: CareDose [facility]: Dose Right [facility]: Teradose 4D [facility]: [place] CONTRAST TYPE AND DOSE: 71 mL Isovue 370- low osmolar. RENAL FUNCTION: Creatinine 0.8 RADIATION DOSE: . LIMITATIONS: None. FINDINGS: LUNGS AND PLEURA: There are stable postsurgical and probable postradiation changes on the left with scarring in the left hilum and volume loss. No acute consolidation, pleural effusions or p neumothorax. No suspicious pulmonary nodules. HILAR AND MEDIASTINAL STRUCTURES: No identified masses or abnormal nodes. HEART AND VASCULAR STRUCTURES: No aneurysm or dissection. No central pulmonary emboli. No pericardi al effusion. HARDWARE: None in the chest. UPPER ABDOMEN: No significant findings. Limited exam. THYROID AND OTHER SOFT TISSUES: No masses. No adenopathy. BONES: No significant finding. OTHER: No other significant finding. IMPRESSION: Stable CT of the chest. No evidence of metastatic disease. TECHNICAL DOCUMENTATION: JOB ID: [id number] Quality ID # 436: Final reports with documentation of one or more dose reduction techniques (e.g., Au tomated exposure control, adjustment of the mA and/or kV according to patient size, use of iterative reconstruction technique) 2010 [employer]- All Rights Reserved Reading location - IP/workstation name: [email or web address]
--- NOTE | 2018-10-10 11:09 | RADIOLOGY REPORT (SQ) ---
EXAM DESCRIPTION: MRI HEAD COMBO COMPLETED DATE/TIME: 10/10/2018 9:51 am REASON FOR STUDY: LUNG CA (C34.12) C34.12 MALIGNANT NEOPLASM OF UPPER LOBE, LEFT BRONCHUS OR BOB COMPARISON: MRI brain 06/06/2012, 04/11/2018, 08/03/2018 TECHNIQUE: Multiplanar imaging includes noncontrasted T1, T2, FLAIR, diffusion with ADC map and post gadolinium contrast T1 sequences. Images stored on PACS. CONTRAST TYPE AND DOSE: 10 mL Dotarem. RENAL FUNCTION: GFR > 60. LIMITATIONS: None. FINDINGS: ANATOMY: No developmental anomalies. Normal vascular flow voids. Pituitary fossa normal. CSF SPACES: Normal in size and contour. No hemorrhage. CEREBRUM: Old left frontal craniotomy. Deep to the craniotomy flap, focal left frontal cortical and subcortical white matter encephalomalacia is present with a peripheral thin rim enhancing cavity, 2 x 1.5 cm in size. Minimal adjacent increased FLAIR/ T2 signal from gliosis. This is similar compared to multiple previous studies. In the left occipital lobe, along the calcarine fissure there is a 9 mm x 6 mm thin walled cyst with peripheral rim enhancement. This is smaller than on 04/11/2018 and 08/03/2018. No new brain parenchymal or leptomeningeal enhancing nodules or lesions are identified. No MR evidence of acute ischemic change, acute intracranial hemorrhage, mass effect, or midline shift . POSTERIOR FOSSA: No signal alteration. No hemorrhage. No edema, masses, or mass effect. Internal shyam tory canals, cerebellopontine angles, mastoids normal. No enhancing lesions. No abnormal enhancement post contrast. DIFFUSION IMAGING: Negative for acute or subacute infarction. ORBITS: No masses. Globes normal. PARANASAL SINUSES: No fluid levels. Mucosa normal. OTHER: No other significant finding. IMPRESSION: Stable left frontal encephalomalacia post craniotomy. Decrease in size of peripheral rim enhancing left occipital cortical metastatic lesion compared to pr evious studies. EVIDENCE OF ACUTE STROKE: NO. TECHNICAL DOCUMENTATION: JOB ID: [id number] [employer]- All Rights Reserved Reading location - IP/workstation name: [facility]
== END ==
LOC: RAD 08:25
PROVIDERS: ATTEND Internal Medicine
DX: C34.12 Malignant neoplasm of upper lobe, left bronchus or lung (principal)
CPT/HCPCS: 82565; 70553; 71260; 74177; A9576

== ENCOUNTER → 2018-12-09 | Outpatient (CLI) | payer OTHER, MEDICARE ==
--- NOTE | 2018-12-09 11:01 | RADIOLOGY REPORT (SQ) ---
EXAM DESCRIPTION: CT CHEST WITH COMPLETED DATE/TIME: 12/09/2018 10:40 am REASON FOR STUDY: MALIGNANT NEOPLASM OF UPPER LOBE, LEFT BRONCHUS OR LUNG C34.12 MALIGNANT NEOPLASM OF UPPER LOBE, LEFT BRONCHUS OR BOB COMPARISON: 10/10/2018 TECHNIQUE: CT scan of the chest performed using helical scanning technique with dynamic intravenous contrast injection. Images reviewed with lung, soft tissue and bone windows. Reconstructed coronal and sagittal MPR and MIP images reviewed. All images stored on PACS. All CT scanners at this facility use dose modulation, iterative reconstruction, and/or weight based d osing when appropriate to reduce radiation dose to as low as reasonably achievable (ALARA). [facility]: Dose Right [facility]: CareDose [facility]: Dose Right [facility]: Teradose 4D [facility]: ShopLocket CONTRAST TYPE AND DOSE: See separate report same date. RENAL FUNCTION: See separate report. RADIATION DOSE: . LIMITATIONS: None. FINDINGS: LUNGS AND PLEURA: Status post left upper lobectomy. Stable rind of scar tissue along the medial surgical bed. No developing nodules. No effusions. HILAR AND MEDIASTINAL STRUCTURES: No identified masses or abnormal nodes. HEART AND VASCULAR STRUCTURES: No aneurysm or dissection. No central pulmonary emboli. No pericardi al effusion. HARDWARE: None in the chest. UPPER ABDOMEN: See separate report of the CT of the abdomen. THYROID AND OTHER SOFT TISSUES: No masses. No adenopathy. BONES: Nothing acute. OTHER: No other significant finding. IMPRESSION: No evidence of metastatic disease. TECHNICAL DOCUMENTATION: JOB ID: [id number] Quality ID # 436: Final reports with documentation of one or more dose reduction techniques (e.g., Au tomated exposure control, adjustment of the mA and/or kV according to patient size, use of iterative reconstruction technique) 2010 [employer]- All Rights Reserved Reading location - IP/workstation name: [email or web address]
--- NOTE | 2018-12-09 11:07 | RADIOLOGY REPORT (SQ) ---
EXAM DESCRIPTION: CT ABD/PELVIS WITH IV ONLY COMPLETED DATE/TIME: 12/09/2018 10:39 am REASON FOR STUDY: MALIGNANT NEOPLASM OF UPPER LOBE, LEFT BRONCHUS OR LUNG C34.12 MALIGNANT NEOPLASM OF UPPER LOBE, LEFT BRONCHUS OR BOB COMPARISON: 10/10/2018 TECHNIQUE: CT scan of the abdomen and pelvis performed using helical scanning technique with dynamic intravenous contrast injection. No oral contrast. Images reviewed with lung, soft tissue, and bone windows. Reconstructed coronal and sagittal MPR images reviewed. Delayed images for evaluation of the urinary system also acquired. All images stored on PACS. All CT scanners at this facility use dose modulation, iterative reconstruction, and/or weight based d osing when appropriate to reduce radiation dose to as low as reasonably achievable (ALARA). [facility]: Dose Right [facility]: CareDose [facility]: Dose Right [facility]: Teradose 4D [facility]: [employer] CONTRAST TYPE AND DOSE: contrast/concentration: Isovue 350.00 mg/ml; Total Contrast Delivered: 71.0 ml; Total Saline Delivered: 66.0 ml RENAL FUNCTION: GFR > 60. RADIATION DOSE: CT Rad equipment meets quality standard of care and radiation dose reduction techniq ues were employed. CTDIvol: 4.4 - 4.5 mGy. DLP: 611 mGy-cm.. LIMITATIONS: None. FINDINGS: LOWER CHEST: See separate report of the CT of the chest. LIVER: Stable lesion posterior right lobe measuring about 3 cm most consistent with hemangioma based on enhancement characteristics. SPLEEN: Normal size. No focal lesions. PANCREAS: No masses. No significant calcifications. No adjacent inflammation or peripancreatic fluid collections. Pancreatic duct not dilated. GALLBLADDER: Surgically absent. ADRENAL GLANDS: No significant masses or asymmetry. RIGHT KIDNEY AND URETER: No solid masses. No significant calcifications. No hydronephrosis or hyd roureter. LEFT KIDNEY AND URETER: No solid masses. No significant calcifications. No hydronephrosis or hydr oureter. AORTA AND VESSELS: No aneurysm. No dissection. Renal arteries, SMA, celiac without stenosis. RETROPERITONEUM: No retroperitoneal adenopathy, hemorrhage or masses. BOWEL AND PERITONEAL CAVITY: No masses or inflammatory changes. No free fluid or peritoneal masses. APPENDIX: Not visualized. PELVIS: No mass. No free fluid. Normal bladder. ABDOMINAL WALL: No masses. No hernias. BONES: No significant or acute findings. OTHER: No other significant finding. IMPRESSION: No evidence of metastatic disease. Liver hemangioma. TECHNICAL DOCUMENTATION: JOB ID: [id number] Quality ID # 436: Final reports with documentation of one or more dose reduction techniques (e.g., Au tomated exposure control, adjustment of the mA and/or kV according to patient size, use of iterative reconstruction technique) 2010 [employer]- All Rights Reserved Reading location - IP/workstation name: [email or web address]
--- NOTE | 2018-12-09 11:47 | RADIOLOGY REPORT (SQ) ---
EXAM DESCRIPTION: MRI HEAD COMBO COMPLETED DATE/TIME: 12/09/2018 11:25 am REASON FOR STUDY: MALIGNANT NEOPLASM OF UPPER LOBE, LEFT BRONCHUS OR LUNG C34.12 MALIGNANT NEOPLASM OF UPPER LOBE, LEFT BRONCHUS OR BOB COMPARISON: 10/10/2018 TECHNIQUE: Multiplanar imaging includes noncontrasted T1, T2, FLAIR, diffusion with ADC map and post gadolinium contrast T1 sequences. Images stored on PACS. CONTRAST TYPE AND DOSE: 10 mL Dotarem. RENAL FUNCTION: Not indicated. ACR Type II contrast agent associated with few, if any, unconfounded cases of NSF LIMITATIONS: None. FINDINGS: Status post left frontal craniotomy. Stable rim enhancing cavity measuring 2 cm in maximu m diameter with adjacent dural and meningeal enhancement. This is stable over multiple studies. Left occipital cortical cystic lesion on image 17 axial T2 is stable. I do not see any associated en hancement. No new lesions. No evidence of acute infarct, hemorrhage, mass effect or midline shift. IMPRESSION: Stable left frontal encephalomalacia status post craniotomy. Stable left occipital cyst ic lesion. EVIDENCE OF ACUTE STROKE: NO. TECHNICAL DOCUMENTATION: JOB ID: [id number] [employer]- All Rights Reserved Reading location - IP/workstation name: [email or web address]
== END ==
LOC: RAD 09:29
PROVIDERS: ATTEND Internal Medicine
DX: C34.12 Malignant neoplasm of upper lobe, left bronchus or lung (principal); G93.40 Encephalopathy, unspecified; D18.03 Hemangioma of intra-abdominal structures
CPT/HCPCS: 82565; 70553; 71260; 74177; A9576

== ENCOUNTER → 2019-01-17 | Outpatient (CLI) | payer OTHER, MEDICARE ==
--- NOTE | 2019-01-17 15:39 | WOMENS IMAGING REPORT ---
EXAM DESCRIPTION: 3D SCREENING MAMMO BILAT COMPLETED DATE/TIME: 01/17/2019 2:22 pm REASON FOR STUDY: Z12.31 ROUTINE 3D BILATERAL SCREENING Z12.31 ENCNTR SCREEN MAMMOGRAM FOR MALIGNAN T NEOPLASM OF JAYCEE COMPARISON: Multiple since 2008 EXAM PARAMETERS: Views: Standard craniocaudal and mediolateral oblique views of each breast recorded using digital acquisition and breast tomosynthesis. Read with the assistance of CAD. [facility] [employer] Room Attendant Version 9.2 LIMITATIONS: None. FINDINGS: No suspicious masses, suspicious calcifications or architectural distortion. No areas of c oncern. IMPRESSION: NORMAL MAMMOGRAM. BIRADS 1. BREAST DENSITY: b. There are scattered areas of fibroglandular density. BIRAD: 1 NEGATIVE RECOMMENDATION: ROUTINE SCREENING COMMENT: The patient has been notified of the results by letter per SA requirements. Additional no tification policies are in place for contacting patient with suspicious or incomplete findings. Quality ID #225: The [employer] recommends an annual screening mammogram for women aged 40 years or over. This facility utilizes a reminder system to ensure that all patients receive reminder letters, and/or direct phone calls for appointments. This includes reminders for routine scr eening mammograms, diagnostic mammograms, or other Breast Imaging Interventions when appropriate. Th is patient will be placed in the appropriate reminder system. TECHNICAL DOCUMENTATION: FINDING NUMBER: (1) ASSESSMENT: (1) JOB ID: [id number] [employer]- All Rights Reserved Reading location - IP/workstation name: [email or web address]
== END ==
LOC: WI 14:07
PROVIDERS: ATTEND Physician Assistant
DX: Z12.31 Encounter for screening mammogram for malignant neoplasm of breast (principal)
CPT/HCPCS: 77063; 77067

== ENCOUNTER 2019-01-27 08:35 | Day surgery (SDC) | payer OTHER, MEDICARE ==
[~2019-01-27 08:35] MED LIST: PROPOFOL INJ 200 MG/20 ML VIAL IV ONE
[2019-01-27 10:52] VITALS: BP 130/78
--- NOTE | 2019-01-27 11:28 | Operative Report ---
Operative Report DATE OF SURGERY: 01/27/19 Operative Report: The risks, benefits and alternatives of the procedure including the risk of bleeding, perforation requiring surgery have been explained to the patient in detail and informed consent has been obtained. The patient is taken to the endoscopy suite and placed in a left, lateral decubital position. Timeout was called. Propofol medication is administered. A rectal examination is done which did not reveal any masses, tears or fissures. An Olympus videoscope was introduced into the patient's rectum. The scope was then carefully advanced all the way to the cecum. The cecum was identified by the usual anatomical landmarks of the ileocecal valve as well as the appendiceal office. Photodocumentation is obtained. The scope was then sequentially pulled back via the various segments of the colon including the ascending colon, hepatic flexure, transverse colon, splenic flexure, descending colon and finally into the rectosigmoid portions of the colon. Retroflexion maneuver is performed. PREOPERATIVE DIAGNOSIS: Colorectal cancer screening POSTOPERATIVE DIAGNOSIS: Descending colon polyp which was removed via biopsy forceps and retrieved OPERATION: Colonoscopy with biopsy SURGEON: FLAVIA HALE ANESTHESIA: LMAC TISSUE REMOVED OR ALTERED: As noted above. COMPLICATIONS: None. ESTIMATED BLOOD LOSS: None. INTRAOPERATIVE FINDINGS: As noted above. PROCEDURE: Patient tolerated the procedure well. No immediate postprocedure complications are noted. Patient is discharged in good condition. Discharge date 01/27/2019. Discharge diet: Regular. Discharge activity: Regular. 2 to 3-week follow-up to discuss findings. Patient is instructed to call the office or proceed to the emergency room should there be any further questions. 3 to 5-year surveillance colonoscopy depending on the pathology of the polyp.
== END 2019-01-27 11:05 | disposition home or self-care (01) ==
LOC: END 08:35
PROVIDERS: ATTEND Internal Medicine Gastroenterology
DX: Z12.11 Encounter for screening for malignant neoplasm of colon (principal); D12.4 Benign neoplasm of descending colon; F17.210 Nicotine dependence, cigarettes, uncomplicated
CPT/HCPCS: 45380; 88305 ×2; J2704

== ENCOUNTER → 2019-03-13 | Outpatient (CLI) | payer OTHER, MEDICARE ==
--- NOTE | 2019-03-13 10:49 | RADIOLOGY REPORT (SQ) ---
EXAM DESCRIPTION: MRI HEAD COMBO COMPLETED DATE/TIME: 03/13/2019 10:34 am REASON FOR STUDY: LUNG CA C34.12 MALIGNANT NEOPLASM OF UPPER LOBE, LEFT BRONCHUS OR BBO COMPARISON: 12/09/2018 TECHNIQUE: Multiplanar imaging includes noncontrasted T1, T2, FLAIR, diffusion with ADC map and post gadolinium contrast T1 sequences. Images stored on PACS. CONTRAST TYPE AND DOSE: 10 mL Dotarem. RENAL FUNCTION: Not indicated. ACR Type II contrast agent associated with few, if any, unconfounded cases of NSF LIMITATIONS: None. FINDINGS: ANATOMY: No anomalies. Normal vascular flow voids. Pituitary fossa normal. CSF SPACES: Normal in size and contour. No hemorrhage. CEREBRUM: Stable area of encephalomalacia in the left frontal lobe adjacent to craniotomy. Residual dural enhancement in the surgical bed. Approximately 1.5 cm cystic component. Stable 9 mm cyst lashell g the left occipital falx. POSTERIOR FOSSA: No signal alteration. No hemorrhage. No edema, masses, or mass effect. Internal shyam tory canals, cerebellopontine angles, mastoids normal. No enhancing lesions. No abnormal enhancement post contrast. DIFFUSION IMAGING: Negative for acute or subacute infarction. ORBITS: No masses. Globes normal. PARANASAL SINUSES: No fluid levels. Mucosa normal. OTHER: No other significant finding. IMPRESSION: Stable appearance of the brain status post left frontal craniotomy. EVIDENCE OF ACUTE STROKE: NO. TECHNICAL DOCUMENTATION: JOB ID: [id number] [employer]- All Rights Reserved Reading location - IP/workstation name: [email or web address]
--- NOTE | 2019-03-13 11:03 | RADIOLOGY REPORT (SQ) ---
EXAM DESCRIPTION: CT CHEST WITH COMPLETED DATE/TIME: 03/13/2019 10:09 am REASON FOR STUDY: LUNG CA C34.12 MALIGNANT NEOPLASM OF UPPER LOBE, LEFT BRONCHUS OR BOB COMPARISON: 12/09/2018 TECHNIQUE: CT scan of the chest performed using helical scanning technique with dynamic intravenous contrast injection. Images reviewed with lung, soft tissue and bone windows. Reconstructed coronal and sagittal MPR and MIP images reviewed. All images stored on PACS. All CT scanners at this facility use dose modulation, iterative reconstruction, and/or weight based d osing when appropriate to reduce radiation dose to as low as reasonably achievable (ALARA). [facility]: Dose Right [facility]: CareDose [facility]: Dose Right [facility]: Teradose 4D [facility]: [employer] CONTRAST TYPE AND DOSE: See separate report of the same date. RENAL FUNCTION: See separate report. RADIATION DOSE: . LIMITATIONS: None. FINDINGS: LUNGS AND PLEURA: Stable rind of tissue along the medial aspect of the surgical bed status post left upper lobectomy. No developing nodules or infiltrate. No effusions. HILAR AND MEDIASTINAL STRUCTURES: No identified masses or abnormal nodes. HEART AND VASCULAR STRUCTURES: No aneurysm or dissection. No central pulmonary emboli. No pericardi al effusion. HARDWARE: None in the chest. UPPER ABDOMEN: See separate report of the CT of the abdomen. THYROID AND OTHER SOFT TISSUES: Stable colloid cyst left lobe. BONES: No significant finding. OTHER: No other significant finding. IMPRESSION: No evidence of local recurrence or metastatic disease. TECHNICAL DOCUMENTATION: JOB ID: [id number] Quality ID # 436: Final reports with documentation of one or more dose reduction techniques (e.g., Au tomated exposure control, adjustment of the mA and/or kV according to patient size, use of iterative reconstruction technique) 2010 [employer]- All Rights Reserved Reading location - IP/workstation name: [email or web address]
--- NOTE | 2019-03-13 11:07 | RADIOLOGY REPORT (SQ) ---
EXAM DESCRIPTION: CT ABD/PELVIS WITH IV ONLY COMPLETED DATE/TIME: 03/13/2019 9:51 am REASON FOR STUDY: LUNG CA C34.12 MALIGNANT NEOPLASM OF UPPER LOBE, LEFT BRONCHUS OR BOB COMPARISON: 12/09/2018 TECHNIQUE: CT scan of the abdomen and pelvis performed using helical scanning technique with dynamic intravenous contrast injection. No oral contrast. Images reviewed with lung, soft tissue, and bone windows. Reconstructed coronal and sagittal MPR images reviewed. Delayed images for evaluation of the urinary system also acquired. All images stored on PACS. All CT scanners at this facility use dose modulation, iterative reconstruction, and/or weight based d osing when appropriate to reduce radiation dose to as low as reasonably achievable (ALARA). [facility]: Dose Right [facility]: CareDose [facility]: Dose Right [facility]: Teradose 4D [facility]: [employer] CONTRAST TYPE AND DOSE: contrast/concentration: Isovue 350.00 mg/ml; Total Contrast Delivered: 100.0 ml; Total Saline Delivered: 44.5 ml RENAL FUNCTION: Creatinine 0.8 RADIATION DOSE: CT Rad equipment meets quality standard of care and radiation dose reduction techniq ues were employed. CTDIvol: 4.4 - 4.5 mGy. DLP: 604 mGy-cm.. LIMITATIONS: None. FINDINGS: LOWER CHEST: See separate report of the CT of the chest. LIVER: Stable hemangioma right lobe. SPLEEN: Normal size. No focal lesions. PANCREAS: No masses. No significant calcifications. No adjacent inflammation or peripancreatic fluid collections. Pancreatic duct not dilated. GALLBLADDER: Surgically absent. ADRENAL GLANDS: No significant masses or asymmetry. RIGHT KIDNEY AND URETER: No solid masses. No significant calcifications. No hydronephrosis or hyd roureter. LEFT KIDNEY AND URETER: No solid masses. No significant calcifications. No hydronephrosis or hydr oureter. AORTA AND VESSELS: No aneurysm. No dissection. Renal arteries, SMA, celiac without stenosis. RETROPERITONEUM: No retroperitoneal adenopathy, hemorrhage or masses. BOWEL AND PERITONEAL CAVITY: No masses or inflammatory changes. No free fluid or peritoneal masses. APPENDIX: Surgically absent. PELVIS: No mass. No free fluid. Normal bladder. ABDOMINAL WALL: No masses. No hernias. BONES: No significant or acute findings. OTHER: No other significant finding. IMPRESSION: No evidence of metastatic disease. TECHNICAL DOCUMENTATION: JOB ID: [id number] Quality ID # 436: Final reports with documentation of one or more dose reduction techniques (e.g., Au tomated exposure control, adjustment of the mA and/or kV according to patient size, use of iterative reconstruction technique) 2010 [employer]- All Rights Reserved Reading location - IP/workstation name: [email or web address]
== END ==
LOC: RAD 09:01
PROVIDERS: ATTEND Internal Medicine
DX: C34.12 Malignant neoplasm of upper lobe, left bronchus or lung (principal)
CPT/HCPCS: 82565; 70553; 71260; 74177; A9576

== ENCOUNTER → 2019-04-27 | Outpatient (CLI) | payer MEDICAID, MEDICARE, OTHER ==
--- NOTE | 2019-04-27 11:38 | WOMENS IMAGING REPORT ---
EXAM DESCRIPTION: 3D DX MAMMO LEFT UNILAT; U/S BREAST UNILAT LIMITED COMPLETED DATE/TIME: 04/27/2019 8:39 am; 04/27/2019 8:54 am REASON FOR STUDY: N63.20 UNSPECIFIED LUMP IN THE LEFT BREAST, UNSPECIFIED QUADRANT; LT BREAST N63.20 N63.20 UNSPECIFIED LUMP IN THE LEFT BREAST, UNSPECIFIED QUAD COMPARISON: 01/17/2019 and 12/17/2017. EXAM PARAMETERS: Standard craniocaudal and mediolateral oblique images of the breast recorded using digital acquisition and breast tomosynthesis. Additional true lateral image acquired with tomosynthesis. Read with the assistance of CAD. .[facility] - [employer] Dispenser Operator Version 9.2 LIMITATIONS: None. FINDINGS: BREAST LATERALITY: left MASSES: No suspicious masses. CALCIFICATIONS: No new or suspicious calcifications. ARCHITECTURAL DISTORTION: None. DEVELOPING DENSITY: None. ASYMMETRY: None noted. OTHER: No other significant findings. BREAST ULTRASOUND: TECHNIQUE: Static and dynamic grayscale images acquired of the inferior left breast in the specific a reas of clinical concern. Selected color Doppler images recorded. ELASTOGRAPHY PERFORMED: No. LIMITATIONS: None. FINDINGS: MASS: No mass identified. Normal glandular tissue. ELASTOGRAPHY CHARACTERISTICS: Not applicable. OTHER: No other significant finding. IMPRESSION: Unremarkable left breast mammogram and ultrasound. No worrisome findings in the area of concern. BREAST DENSITY: b. There are scattered areas of fibroglandular density. BIRAD: ASSESSMENT: 1 Negative. RECOMMENDATION: RECOMMENDED FOLLOW UP: Birads 1 or 2: No breast imaging finding to explain the patie nt's presenting complaint. Further intervention should be based on the degree of clinical suspicion. SPECIFIC INTERVENTION/IMAGING/CONSULTATION RECOMMENDED:No additional intervention/ imaging/consultati on needed at this time. COMMUNICATION:The imaging findings were not discussed with the patient. Her referring provider has be en notified of the findings. COMMENT: The patient has been notified of the results by letter per MQSA requirements. Additional no tification policies are in place for contacting patient with suspicious or incomplete findings. Quality ID #225: The [employer] recommends an annual screening mammogram for women aged 40 years or over. This facility utilizes a reminder system to ensure that all patients receive reminder letters, and/or direct phone calls for appointments. This includes reminders for routine scr eening mammograms, diagnostic mammograms, or other Breast Imaging Interventions when appropriate. Th is patient will be placed in the appropriate reminder system. TECHNICAL DOCUMENTATION: FINDING NUMBER: (1) ASSESSMENT: (1) JOB ID: [id number] [employer]- All Rights Reserved Reading location - IP/workstation name: [email or web address]
--- NOTE | 2019-04-27 11:38 | WOMENS IMAGING REPORT ---
EXAM DESCRIPTION: 3D DX MAMMO LEFT UNILAT; U/S BREAST UNILAT LIMITED COMPLETED DATE/TIME: 04/27/2019 8:39 am; 04/27/2019 8:54 am REASON FOR STUDY: N63.20 UNSPECIFIED LUMP IN THE LEFT BREAST, UNSPECIFIED QUADRANT; LT BREAST N63.20 N63.20 UNSPECIFIED LUMP IN THE LEFT BREAST, UNSPECIFIED QUAD COMPARISON: 01/17/2019 and 12/17/2017. EXAM PARAMETERS: Standard craniocaudal and mediolateral oblique images of the breast recorded using digital acquisition and breast tomosynthesis. Additional true lateral image acquired with tomosynthesis. Read with the assistance of CAD. .[facility] - [employer] Motor Operator Version 9.2 LIMITATIONS: None. FINDINGS: BREAST LATERALITY: left MASSES: No suspicious masses. CALCIFICATIONS: No new or suspicious calcifications. ARCHITECTURAL DISTORTION: None. DEVELOPING DENSITY: None. ASYMMETRY: None noted. OTHER: No other significant findings. BREAST ULTRASOUND: TECHNIQUE: Static and dynamic grayscale images acquired of the inferior left breast in the specific a reas of clinical concern. Selected color Doppler images recorded. ELASTOGRAPHY PERFORMED: No. LIMITATIONS: None. FINDINGS: MASS: No mass identified. Normal glandular tissue. ELASTOGRAPHY CHARACTERISTICS: Not applicable. OTHER: No other significant finding. IMPRESSION: Unremarkable left breast mammogram and ultrasound. No worrisome findings in the area of concern. BREAST DENSITY: b. There are scattered areas of fibroglandular density. BIRAD: ASSESSMENT: 1 Negative. RECOMMENDATION: RECOMMENDED FOLLOW UP: Birads 1 or 2: No breast imaging finding to explain the patie nt's presenting complaint. Further intervention should be based on the degree of clinical suspicion. SPECIFIC INTERVENTION/IMAGING/CONSULTATION RECOMMENDED:No additional intervention/ imaging/consultati on needed at this time. COMMUNICATION:The imaging findings were not discussed with the patient. Her referring provider has be en notified of the findings. COMMENT: The patient has been notified of the results by letter per MQSA requirements. Additional no tification policies are in place for contacting patient with suspicious or incomplete findings. Quality ID #225: The [employer] recommends an annual screening mammogram for women aged 40 years or over. This facility utilizes a reminder system to ensure that all patients receive reminder letters, and/or direct phone calls for appointments. This includes reminders for routine scr eening mammograms, diagnostic mammograms, or other Breast Imaging Interventions when appropriate. Th is patient will be placed in the appropriate reminder system. TECHNICAL DOCUMENTATION: FINDING NUMBER: (1) ASSESSMENT: (1) JOB ID: [id number] [employer]- All Rights Reserved Reading location - IP/workstation name: [email or web address]
== END ==
LOC: WI 08:15
PROVIDERS: ATTEND Internal Medicine
DX: R92.2 Inconclusive mammogram (principal)
CPT/HCPCS: 76642

== ENCOUNTER → 2019-05-24 | Outpatient (CLI) | payer MEDICAID, MEDICARE, OTHER ==
--- NOTE | 2019-05-24 19:10 | RADIOLOGY REPORT (SQ) ---
EXAM DESCRIPTION: CT CHEST WITHOUT COMPLETED DATE/TIME: 05/24/2019 2:45 pm REASON FOR STUDY: C34.12 MALIGNANT NEOPLASM OF UPPER LOBE, LEFT BRONCHUS OR LUNG C34.12 MALIGNANT N EOPLASM OF UPPER LOBE, LEFT BRONCHUS OR BOB COMPARISON: 03/13/2019 TECHNIQUE: CT scan performed of the chest without intravenous contrast. Images reviewed with lung, soft tissue and bone windows. Reconstructed coronal and sagittal MPR images reviewed. All images st ored on PACS. All CT scanners at this facility use dose modulation, iterative reconstruction, and/or weight based d osing when appropriate to reduce radiation dose to as low as reasonably achievable (ALARA). [facility]: Dose Right [facility]: CareDose [facility]: Dose Right [facility]: Teradose 4D [facility]: [employer] RADIATION DOSE: CT Rad equipment meets quality standard of care and radiation dose reduction techniq ues were employed. CTDIvol: 3.3 mGy. DLP: 131 mGy-cm. mGy. LIMITATIONS: No technical limitations. FINDINGS: LUNGS AND PLEURA: Reduced volume in the left lung. Radiation changes along the mediastinu m in the left lung. No new masses. No infiltrate or effusion. HILAR AND MEDIASTINAL STRUCTURES: No identified masses or abnormal nodes. No obvious aneurysm. HEART AND VASCULAR STRUCTURES: No aneurysm. No pericardial effusion. UPPER ABDOMEN: Stable 3 cm low-density lesion in the right lobe of the liver. THYROID AND OTHER SOFT TISSUES: Low-density lesion in the left lobe of the thyroid gland. BONES: No significant finding. HARDWARE: None in the chest. OTHER: No other significant findings. IMPRESSION: Stable findings. No evidence of recurrent or metastatic neoplasm. TECHNICAL DOCUMENTATION: JOB ID: [id number] Quality ID # [id number]: Final reports with documentation of one or more dose reduction techniques (e.g., Au tomated exposure control, adjustment of the mA and/or kV according to patient size, use of iterative reconstruction technique) 2010 [employer]- All Rights Reserved Reading location - IP/workstation name: [email or web address]
== END ==
LOC: RAD 14:30
PROVIDERS: ATTEND Internal Medicine
DX: C34.12 Malignant neoplasm of upper lobe, left bronchus or lung (principal)
CPT/HCPCS: 71250

== ENCOUNTER → 2019-06-14 | Outpatient (CLI) | payer OTHER ==
--- NOTE | 2019-06-14 09:07 | RADIOLOGY REPORT (SQ) ---
EXAM DESCRIPTION: CT CHEST WITH; CT ABD/PELVIS WITH IV ONLY COMPLETED DATE/TIME: 06/14/2019 8:46 am REASON FOR STUDY: MALIGNANT NEOPLASM OF UPPER LOBE, LEFT BRONCHUS OR LUNG C34.12 MALIGNANT NEOPLASM OF UPPER LOBE, LEFT BRONCHUS OR BOB CONTRAST TYPE AND DOSE: contrast/concentration: Isovue 350.00 mg/ml; Total Contrast Delivered: 70.0 ml; Total Saline Delivered: 63.0 ml RENAL FUNCTION: Creatinine 0.7 COMPARISON: 05/24/2019 and 03/13/2019 TECHNIQUE: CT scan of the chest performed using helical scanning technique with dynamic intravenous contrast injection. Images reviewed with lung, soft tissue and bone windows. Reconstructed coronal a nd sagittal MPR images reviewed. All images stored on PACS. All CT scanners at this facility use dose modulation, iterative reconstruction, and/or weight based d osing when appropriate to reduce radiation dose to as low as reasonably achievable (ALARA). [facility]: Dose Right [facility]: CareDose [facility]: Dose Right [facility]: Teradose 4D [facility]: Smart [employer] RADIATION DOSE: CT Rad equipment meets quality standard of care and radiation dose reduction techniq ues were employed. CTDIvol: 5.0 - 6.1 mGy. DLP: 655 mGy-cm. . LIMITATIONS: None. FINDINGS: AXILLAE: No adenopathy. CHEST WALL: No masses. No subcutaneous air. LUNGS: Volume loss on the left with areas of scarring stable from prior study. No suspicious pulmona ry nodules. No consolidation. PLEURA: No effusions. No calcifications. THYROID: Stable left thyroid nodule measured 1.8 cm. HILAR AND MEDIASTINAL STRUCTURES: No identified masses or abnormal nodes. AORTA AND GREAT VESSELS: No aneurysm. No dissection. PULMONARY ARTERIES: No identified pulmonary emboli. Study not optimized for the pulmonary arteries. HEART: No pericardial effusion. HARDWARE AND LIFELINES: None. BONES: No significant finding. OTHER: No other significant finding. IMPRESSION: Postsurgical changes on the left. No evidence of metastatic disease. COMPARISON: None. RADIATION DOSE: CT Rad equipment meets quality standard of care and radiation dose reduction techniq ues were employed. CTDIvol: 5.0 - 6.1 mGy. DLP: 655 mGy-cm. mGy. TECHNIQUE: CT scan of the abdomen and pelvis performed with intravenous and oral contrast using oxana lázaro scanning technique with dynamic intravenous contrast injection. Images reviewed with lung, soft tissue and bone windows. Reconstructed coronal and sagittal MPR images reviewed. Delayed images for evaluation of the urinary system also acquired and evaluated. All images stored on PACS. All CT scanners at this facility use dose modulation, iterative reconstruction, and/or weight based d osing when appropriate to reduce radiation dose to as low as reasonably achievable (ALARA). [facility]: Dose Right [facility]: [employer] [facility]: Dose Right [facility]: Teradose 4D [facility]: [employer] FINDINGS: LIVER: Hemangioma in the posterior right lobe of liver is again noted. No new findings. SPLEEN: Normal size. No focal lesions. PANCREAS: No masses. No significant calcifications. No adjacent inflammation or peripancreatic flui d collections. Pancreatic duct not dilated. GALLBLADDER: Surgically absent. ADRENAL GLANDS: No significant masses or asymmetry. RIGHT KIDNEY AND URETER: No solid masses. No significant calcifications. No hydronephrosis or hyd roureter. LEFT KIDNEY AND URETER: No solid masses. No significant calcifications. No hydronephrosis or hydr oureter. AORTA AND VESSELS: No aneurysm. No dissection. Renal arteries, SMA, celiac without stenosis. RETROPERITONEUM: No retroperitoneal adenopathy, hemorrhage or masses. LARGE AND SMALL BOWEL: No dilatation. No masses. No wall thickening. APPENDIX: Surgically absent. ABDOMINAL WALL: No hernia or masses. PERITONEAL CAVITY: No free air. No free fluid. No peritoneal implants or masses. PELVIS: No mass or free fluid. Normal bladder. BONES: No significant or acute findings. OTHER: No other significant finding. IMPRESSION: No evidence of metastatic disease in the abdomen or pelvis. TECHNICAL DOCUMENTATION: JOB ID: [id number] Quality ID # 436: Final reports with documentation of one or more dose reduction techniques (e.g., Au tomated exposure control, adjustment of the mA and/or kV according to patient size, use of iterative reconstruction technique) 2010 [employer]- All Rights Reserved Reading location - IP/workstation name: [email or web address]
--- NOTE | 2019-06-14 09:07 | RADIOLOGY REPORT (SQ) ---
EXAM DESCRIPTION: CT CHEST WITH; CT ABD/PELVIS WITH IV ONLY COMPLETED DATE/TIME: 06/14/2019 8:46 am REASON FOR STUDY: MALIGNANT NEOPLASM OF UPPER LOBE, LEFT BRONCHUS OR LUNG C34.12 MALIGNANT NEOPLASM OF UPPER LOBE, LEFT BRONCHUS OR BOB CONTRAST TYPE AND DOSE: contrast/concentration: Isovue 350.00 mg/ml; Total Contrast Delivered: 70.0 ml; Total Saline Delivered: 63.0 ml RENAL FUNCTION: Creatinine 0.7 COMPARISON: 05/24/2019 and 03/13/2019 TECHNIQUE: CT scan of the chest performed using helical scanning technique with dynamic intravenous contrast injection. Images reviewed with lung, soft tissue and bone windows. Reconstructed coronal a nd sagittal MPR images reviewed. All images stored on PACS. All CT scanners at this facility use dose modulation, iterative reconstruction, and/or weight based d osing when appropriate to reduce radiation dose to as low as reasonably achievable (ALARA). [facility]: Dose Right [facility]: CareDose [facility]: Dose Right [facility]: Teradose 4D [facility]: Smart [employer] RADIATION DOSE: CT Rad equipment meets quality standard of care and radiation dose reduction techniq ues were employed. CTDIvol: 5.0 - 6.1 mGy. DLP: 655 mGy-cm. . LIMITATIONS: None. FINDINGS: AXILLAE: No adenopathy. CHEST WALL: No masses. No subcutaneous air. LUNGS: Volume loss on the left with areas of scarring stable from prior study. No suspicious pulmona ry nodules. No consolidation. PLEURA: No effusions. No calcifications. THYROID: Stable left thyroid nodule measured 1.8 cm. HILAR AND MEDIASTINAL STRUCTURES: No identified masses or abnormal nodes. AORTA AND GREAT VESSELS: No aneurysm. No dissection. PULMONARY ARTERIES: No identified pulmonary emboli. Study not optimized for the pulmonary arteries. HEART: No pericardial effusion. HARDWARE AND LIFELINES: None. BONES: No significant finding. OTHER: No other significant finding. IMPRESSION: Postsurgical changes on the left. No evidence of metastatic disease. COMPARISON: None. RADIATION DOSE: CT Rad equipment meets quality standard of care and radiation dose reduction techniq ues were employed. CTDIvol: 5.0 - 6.1 mGy. DLP: 655 mGy-cm. mGy. TECHNIQUE: CT scan of the abdomen and pelvis performed with intravenous and oral contrast using oxana lázaro scanning technique with dynamic intravenous contrast injection. Images reviewed with lung, soft tissue and bone windows. Reconstructed coronal and sagittal MPR images reviewed. Delayed images for evaluation of the urinary system also acquired and evaluated. All images stored on PACS. All CT scanners at this facility use dose modulation, iterative reconstruction, and/or weight based d osing when appropriate to reduce radiation dose to as low as reasonably achievable (ALARA). [facility]: Dose Right [facility]: SureCare [facility]: Dose Right [facility]: Teradose 4D [facility]: [employer] FINDINGS: LIVER: Hemangioma in the posterior right lobe of liver is again noted. No new findings. SPLEEN: Normal size. No focal lesions. PANCREAS: No masses. No significant calcifications. No adjacent inflammation or peripancreatic flui d collections. Pancreatic duct not dilated. GALLBLADDER: Surgically absent. ADRENAL GLANDS: No significant masses or asymmetry. RIGHT KIDNEY AND URETER: No solid masses. No significant calcifications. No hydronephrosis or hyd roureter. LEFT KIDNEY AND URETER: No solid masses. No significant calcifications. No hydronephrosis or hydr oureter. AORTA AND VESSELS: No aneurysm. No dissection. Renal arteries, SMA, celiac without stenosis. RETROPERITONEUM: No retroperitoneal adenopathy, hemorrhage or masses. LARGE AND SMALL BOWEL: No dilatation. No masses. No wall thickening. APPENDIX: Surgically absent. ABDOMINAL WALL: No hernia or masses. PERITONEAL CAVITY: No free air. No free fluid. No peritoneal implants or masses. PELVIS: No mass or free fluid. Normal bladder. BONES: No significant or acute findings. OTHER: No other significant finding. IMPRESSION: No evidence of metastatic disease in the abdomen or pelvis. TECHNICAL DOCUMENTATION: JOB ID: [id number] Quality ID # 436: Final reports with documentation of one or more dose reduction techniques (e.g., Au tomated exposure control, adjustment of the mA and/or kV according to patient size, use of iterative reconstruction technique) 2010 [employer]- All Rights Reserved Reading location - IP/workstation name: [email or web address]
--- NOTE | 2019-06-14 11:42 | RADIOLOGY REPORT (SQ) ---
EXAM DESCRIPTION: MRI HEAD COMBO COMPLETED DATE/TIME: 06/14/2019 10:24 am REASON FOR STUDY: MALIGNANT NEOPLASM OF UPPER LOBE, LEFT BRONCHUS OR LUNG C34.12 MALIGNANT NEOPLASM OF UPPER LOBE, LEFT BRONCHUS OR BOB COMPARISON: 03/13/2019, 12/09/2018 TECHNIQUE: Multiplanar imaging includes noncontrasted T1, T2, FLAIR, diffusion with ADC map and post gadolinium contrast T1 sequences. Images stored on PACS. CONTRAST TYPE AND DOSE: 10 mL Dotare[employer]. RENAL FUNCTION: Not indicated. ACR Type II contrast agent associated with few, if any, unconfounded cases of NSF LIMITATIONS: None. FINDINGS: ANATOMY: No anomalies. Normal vascular flow voids. Pituitary fossa normal. CSF SPACES: Normal in size and contour. No hemorrhage. CEREBRUM: The cystic lesion in the left occipital lobe has significantly increased in size. It now m easures 2.1 x 1.7 cm. There is irregular enhancement of the wall. There is surrounding vasogenic ed elpidio consistent with neoplasm. Postsurgical changes in the left frontal lobe are again noted. No justin nge in the enhancement pattern no midline shift. No hemorrhage. POSTERIOR FOSSA: No signal alteration. No hemorrhage. No edema, masses, or mass effect. Internal shyam tory canals, cerebellopontine angles, mastoids normal. No enhancing lesions. No abnormal enhancement post contrast. DIFFUSION IMAGING: Negative for acute or subacute infarction. ORBITS: No masses. Globes normal. PARANASAL SINUSES: No fluid levels. Mucosa normal. OTHER: No other significant finding. IMPRESSION: 1. Left occipital lobe lesion now measures 2.1 x 1.7 cm. The wall demonstrates some nod ular enhancement. Findings are consistent with neoplasm. 2. Stable postsurgical changes in the left frontal lobe. EVIDENCE OF ACUTE STROKE: NO. TECHNICAL DOCUMENTATION: JOB ID: [id number] [employer]- All Rights Reserved Reading location - IP/workstation name: [email or web address]
== END ==
LOC: RAD 08:03
PROVIDERS: ATTEND Physician Assistant Medical
DX: C34.12 Malignant neoplasm of upper lobe, left bronchus or lung (principal)
CPT/HCPCS: 82565; 70553; 71260; 74177; A9576

== ENCOUNTER → 2020-04-17 | Outpatient (CLI) | payer OTHER ==
--- NOTE | 2020-04-17 13:09 | WOMENS IMAGING REPORT ---
EXAM DESCRIPTION: 3D SCREENING MAMMO BILAT IMAGES COMPLETED DATE/TIME: 04/17/2020 11:46 am REASON FOR STUDY: Z12.31 ENCOUNTER FOR SCREENING MAMMOGRAM FOR MALIGNANT NEOPLASM OF BREAST Z12.31 ENCNTR SCREEN MAMMOGRAM FOR MALIGNANT NEOPLASM OF JAYCEE COMPARISON: 01/17/2019, 12/17/2017, 04/18/2015 EXAM PARAMETERS: Views: Standard craniocaudal and mediolateral oblique views of each breast recorded using digital acquisition and breast tomosynthesis. Read with the assistance of CAD. .[facility] - R2 [employer] Version 9.2 LIMITATIONS: None. FINDINGS: No suspicious masses, suspicious calcifications or architectural distortion. No areas of c oncern. IMPRESSION: NEGATIVE MAMMOGRAM. BIRADS 1. BREAST DENSITY: b. There are scattered areas of fibroglandular density. BIRAD: ASSESSMENT: 1 NEGATIVE RECOMMENDATION: ROUTINE SCREENING COMMENT: The patient has been notified of the results by letter per MQSA requirements. Additional no tification policies are in place for contacting patient with suspicious or incomplete findings. Quality ID #225: The [employer] recommends an annual screening mammogram for women aged 40 years or over. This facility utilizes a reminder system to ensure that all patients receive reminder letters, and/or direct phone calls for appointments. This includes reminders for routine scr eening mammograms, diagnostic mammograms, or other Breast Imaging Interventions when appropriate. Th is patient will be placed in the appropriate reminder system. TECHNICAL DOCUMENTATION: FINDING NUMBER: (1) ASSESSMENT: (1) JOB ID: [id number] 2010 [employer]- All Rights Reserved Reading location - IP/workstation name: [email or web address]
== END ==
LOC: WI 11:35
PROVIDERS: ATTEND Family Medicine
DX: Z12.31 Encounter for screening mammogram for malignant neoplasm of breast (principal)
CPT/HCPCS: 77063; 77067

== ENCOUNTER → 2020-04-22 | Outpatient (CLI) | payer OTHER ==
--- NOTE | 2020-04-22 14:21 | RADIOLOGY REPORT (SQ) ---
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 No oral contrast. Images reviewed with lung, soft tissue, and bone windows. Reconstructed coronal and sagittal MPR images reviewed. Delayed images for evaluation of the urinary system also acquired. All images stored on PACS. All CT scanners at this facility use dose modulation, iterative reconstruction, and/or weight based d osing when appropriate to reduce radiation dose to as low as reasonably achievable (ALARA). [facility]: Dose Right [facility]: CareDose [facility]: Dose Right [facility]: Teradose 4D [facility]: [employer] CONTRAST TYPE AND DOSE: contrast/concentration: Isovue 350.00 mmol/ml; Total Contrast Delivered: 74. 0 ml; Total Saline Delivered: 67.0 ml RENAL FUNCTION: Creatinine 0.9 RADIATION DOSE: . LIMITATIONS: None. FINDINGS: LOWER CHEST: No significant findings. No nodules or infiltrates. LIVER: 3.7 cm low-attenuation lesion within the posterior right hepatic lobe with subsequent fill-in is stable and most compatible with a hemangioma. No additional hepatic lesions identified. No intra hepatic ductal dilation. SPLEEN: Normal size. No focal lesions. PANCREAS: No masses. No significant calcifications. No adjacent inflammation or peripancreatic fluid collections. Pancreatic duct not dilated. GALLBLADDER: Surgically absent. ADRENAL GLANDS: No significant masses or asymmetry. RIGHT KIDNEY AND URETER: No solid masses. No significant calcifications. No hydronephrosis or hyd roureter. LEFT KIDNEY AND URETER: No solid masses. No significant calcifications. No hydronephrosis or hydr oureter. AORTA AND VESSELS: No aneurysm. No dissection. Renal arteries, SMA, celiac without stenosis. RETROPERITONEUM: No retroperitoneal adenopathy, hemorrhage or masses. BOWEL AND PERITONEAL CAVITY: No masses or inflammatory changes. No free fluid or peritoneal masses. APPENDIX: Surgically absent. PELVIS: No mass. No free fluid. Unremarkable urinary bladder. Multiple scattered pelvic phlebolith s. ABDOMINAL WALL: No masses. No hernias. BONES: No significant or acute findings. OTHER: No other significant finding. IMPRESSION: 1. No evidence of metastatic disease within the abdomen or pelvis. 2. Stable 3.7 cm hepatic lesion most compatible with hemangioma. TECHNICAL DOCUMENTATION: JOB ID: [id number] Quality ID # 436: Final reports with documentation of one or more dose reduction techniques (e.g., Au tomated exposure control, adjustment of the mA and/or kV according to patient size, use of iterative reconstruction technique) 2010 [employer]- All Rights Reserved Reading location - IP/workstation name: [email or web address]
--- NOTE | 2020-04-22 14:46 | RADIOLOGY REPORT (SQ) ---
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 Images reviewed with lung, soft tissue and bone windows. Reconstructed coronal and sagittal MPR and MIP images reviewed. All images stored on PACS. All CT scanners at this facility use dose modulation, iterative reconstruction, and/or weight based d osing when appropriate to reduce radiation dose to as low as reasonably achievable (ALARA). [facility]: Dose Right [facility]: CareDose [facility]: Dose Right [facility]: Teradose 4D [facility]: [employer] CONTRAST TYPE AND DOSE: See abdomen RENAL FUNCTION: See abdomen RADIATION DOSE: CT Rad equipment meets quality standard of care and radiation dose reduction techniq ues were employed. CTDIvol: 4.5 - 4.7 mGy. DLP: 646 mGy-cm. . LIMITATIONS: None. FINDINGS: LUNGS AND PLEURA: Post treatment changes within the left hemithorax with surgical change, unchanged pleuroparenchymal scarring and left-sided volume loss. No new discrete nodules or masses. Unremarkable right hemithorax. No airspace disease, pleural effusion or pneumothorax. HILAR AND MEDIASTINAL STRUCTURES: Postsurgical change within the left hilum. No discrete adenopathy. HEART AND VASCULAR STRUCTURES: No aneurysm. Normal heart size. Scattered coronary atherosclerosis. Trace pericardial effusion. HARDWARE: Surgical clips within the left hilum. UPPER ABDOMEN: See separate report of the CT of the abdomen. THYROID AND OTHER SOFT TISSUES: Hypodense lesion within the left thyroid measuring 1.8 cm, stable fro m recent prior but increased in size femoral priors. BONES: No acute bony abnormality. No discrete lytic or blastic osseous lesions. OTHER: No other significant finding. IMPRESSION: 1. Stable posttreatment changes within the left hemithorax. No evidence of intrathorac ic metastatic disease. 2. No evidence of acute intrathoracic process. 3. Slow interval growth of the 1.8 cm left thyroid nodule. Further evaluation with ultrasound would be warranted if not previously performed. TECHNICAL DOCUMENTATION: JOB ID: [id number] Quality ID # 436: Final reports with documentation of one or more dose reduction techniques (e.g., Au tomated exposure control, adjustment of the mA and/or kV according to patient size, use of iterative reconstruction technique) 2010 [employer]- All Rights Reserved Reading location - IP/workstation name: [email or web address]
== END ==
LOC: RAD 12:43
PROVIDERS: ATTEND Internal Medicine
DX: C34.12 Malignant neoplasm of upper lobe, left bronchus or lung (principal); K76.9 Liver disease, unspecified
CPT/HCPCS: 71260; 74177; 82565

== ENCOUNTER → 2020-07-24 | Outpatient (CLI) | payer MEDICAID, MEDICARE, OTHER ==
--- NOTE | 2020-07-24 11:51 | RADIOLOGY REPORT (SQ) ---
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 0 ml; Total Saline Delivered: 65.0 ml RENAL FUNCTION: Creatinine 0.9 COMPARISON: None. TECHNIQUE: CT scan of the chest performed using helical scanning technique with dynamic intravenous contrast injection. Images reviewed with lung, soft tissue and bone windows. Reconstructed coronal a nd sagittal MPR images reviewed. All images stored on PACS. All CT scanners at this facility use dose modulation, iterative reconstruction, and/or weight based d osing when appropriate to reduce radiation dose to as low as reasonably achievable (ALARA). [facility]: Dose Right [facility]: CareDose [facility]: Dose Right [facility]: Teradose 4D [facility]: Smart [employer] RADIATION DOSE: CT Rad equipment meets quality standard of care and radiation dose reduction techniq ues were employed. CTDIvol: 4.4 - 4.5 mGy. DLP: 582 mGy-cm. . LIMITATIONS: None. FINDINGS: AXILLAE: No adenopathy. CHEST WALL: No masses. No subcutaneous air. LUNGS: Postsurgical changes with scarring in the left hilum. Volume loss consistent with prior parti al lobectomy. No suspicious nodules. No consolidation. Mild bilateral centrilobular emphysematous changes. PLEURA: No effusions. No calcifications. THYROID: Stable nodule in the left lobe of the thyroid gland. Correlation with ultrasound is recomme nded as clinically indicated. HILAR AND MEDIASTINAL STRUCTURES: Postsurgical changes in the left hilum. No pathologic adenopathy. AORTA AND GREAT VESSELS: No aneurysm. No dissection. PULMONARY ARTERIES: No identified pulmonary emboli. Study not optimized for the pulmonary arteries. HEART: Small stable pericardial effusion. HARDWARE AND LIFELINES: None. BONES: No evidence of metastatic disease. OTHER: No other significant finding. IMPRESSION: Postsurgical changes on the left. No evidence of metastatic disease in chest. Stable nodules in the left lobe of the thyroid gland. COMPARISON: None. RADIATION DOSE: CT Rad equipment meets quality standard of care and radiation dose reduction techniq ues were employed. CTDIvol: 4.4 - 4.5 mGy. DLP: 582 mGy-cm. mGy. TECHNIQUE: CT scan of the abdomen and pelvis performed with intravenous and oral contrast using oxana lázaro scanning technique with dynamic intravenous contrast injection. Images reviewed with lung, soft tissue and bone windows. Reconstructed coronal and sagittal MPR images reviewed. Delayed images for evaluation of the urinary system also acquired and evaluated. All images stored on PACS. All CT scanners at this facility use dose modulation, iterative reconstruction, and/or weight based d osing when appropriate to reduce radiation dose to as low as reasonably achievable (ALARA). [facility]: Dose Right [facility]: SureCare [facility]: Dose Right [facility]: Teradose 4D [facility]: [employer] FINDINGS: LIVER: Stable hemangioma in the posterior right lobe of the liver. No suspicious findings . SPLEEN: Normal size. No focal lesions. PANCREAS: No masses. No significant calcifications. No adjacent inflammation or peripancreatic flui d collections. Pancreatic duct not dilated. GALLBLADDER: Prior cholecystectomy. ADRENAL GLANDS: No significant masses or asymmetry. RIGHT KIDNEY AND URETER: No solid masses. No significant calcifications. No hydronephrosis or hyd roureter. LEFT KIDNEY AND URETER: No solid masses. No significant calcifications. No hydronephrosis or hydr oureter. AORTA AND VESSELS: No aneurysm. No dissection. Renal arteries, SMA, celiac without stenosis. RETROPERITONEUM: No retroperitoneal adenopathy, hemorrhage or masses. LARGE AND SMALL BOWEL: No dilatation. No masses. No wall thickening. APPENDIX: Not visualized. ABDOMINAL WALL: No hernia or masses. PERITONEAL CAVITY: No free air. No free fluid. No peritoneal implants or masses. PELVIS: No mass or free fluid. Normal bladder. BONES: No significant or acute findings. OTHER: No other significant finding. IMPRESSION: Stable CT abdomen and pelvis. No evidence of metastatic disease. Stable hepatic genny ioma. TECHNICAL DOCUMENTATION: JOB ID: [id number] Quality ID # [id number]: Final reports with documentation of one or more dose reduction techniques (e.g., Au tomated exposure control, adjustment of the mA and/or kV according to patient size, use of iterative reconstruction technique) 2010 [employer]- All Rights Reserved Reading location - IP/workstation name: [email or web address]
--- NOTE | 2020-07-24 11:51 | RADIOLOGY REPORT (SQ) ---
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 0 ml; Total Saline Delivered: 65.0 ml RENAL FUNCTION: Creatinine 0.9 COMPARISON: None. TECHNIQUE: CT scan of the chest performed using helical scanning technique with dynamic intravenous contrast injection. Images reviewed with lung, soft tissue and bone windows. Reconstructed coronal a nd sagittal MPR images reviewed. All images stored on PACS. All CT scanners at this facility use dose modulation, iterative reconstruction, and/or weight based d osing when appropriate to reduce radiation dose to as low as reasonably achievable (ALARA). [facility]: Dose Right [facility]: CareDose [facility]: Dose Right [facility]: Teradose 4D [facility]: Smart [employer] RADIATION DOSE: CT Rad equipment meets quality standard of care and radiation dose reduction techniq ues were employed. CTDIvol: 4.4 - 4.5 mGy. DLP: 582 mGy-cm. . LIMITATIONS: None. FINDINGS: AXILLAE: No adenopathy. CHEST WALL: No masses. No subcutaneous air. LUNGS: Postsurgical changes with scarring in the left hilum. Volume loss consistent with prior parti al lobectomy. No suspicious nodules. No consolidation. Mild bilateral centrilobular emphysematous changes. PLEURA: No effusions. No calcifications. THYROID: Stable nodule in the left lobe of the thyroid gland. Correlation with ultrasound is recomme nded as clinically indicated. HILAR AND MEDIASTINAL STRUCTURES: Postsurgical changes in the left hilum. No pathologic adenopathy. AORTA AND GREAT VESSELS: No aneurysm. No dissection. PULMONARY ARTERIES: No identified pulmonary emboli. Study not optimized for the pulmonary arteries. HEART: Small stable pericardial effusion. HARDWARE AND LIFELINES: None. BONES: No evidence of metastatic disease. OTHER: No other significant finding. IMPRESSION: Postsurgical changes on the left. No evidence of metastatic disease in chest. Stable nodules in the left lobe of the thyroid gland. COMPARISON: None. RADIATION DOSE: CT Rad equipment meets quality standard of care and radiation dose reduction techniq ues were employed. CTDIvol: 4.4 - 4.5 mGy. DLP: 582 mGy-cm. mGy. TECHNIQUE: CT scan of the abdomen and pelvis performed with intravenous and oral contrast using oxana lázaro scanning technique with dynamic intravenous contrast injection. Images reviewed with lung, soft tissue and bone windows. Reconstructed coronal and sagittal MPR images reviewed. Delayed images for evaluation of the urinary system also acquired and evaluated. All images stored on PACS. All CT scanners at this facility use dose modulation, iterative reconstruction, and/or weight based d osing when appropriate to reduce radiation dose to as low as reasonably achievable (ALARA). [facility]: Dose Right [facility]: SureCare [facility]: Dose Right [facility]: Teradose 4D [facility]: [employer] FINDINGS: LIVER: Stable hemangioma in the posterior right lobe of the liver. No suspicious findings . SPLEEN: Normal size. No focal lesions. PANCREAS: No masses. No significant calcifications. No adjacent inflammation or peripancreatic flui d collections. Pancreatic duct not dilated. GALLBLADDER: Prior cholecystectomy. ADRENAL GLANDS: No significant masses or asymmetry. RIGHT KIDNEY AND URETER: No solid masses. No significant calcifications. No hydronephrosis or hyd roureter. LEFT KIDNEY AND URETER: No solid masses. No significant calcifications. No hydronephrosis or hydr oureter. AORTA AND VESSELS: No aneurysm. No dissection. Renal arteries, SMA, celiac without stenosis. RETROPERITONEUM: No retroperitoneal adenopathy, hemorrhage or masses. LARGE AND SMALL BOWEL: No dilatation. No masses. No wall thickening. APPENDIX: Not visualized. ABDOMINAL WALL: No hernia or masses. PERITONEAL CAVITY: No free air. No free fluid. No peritoneal implants or masses. PELVIS: No mass or free fluid. Normal bladder. BONES: No significant or acute findings. OTHER: No other significant finding. IMPRESSION: Stable CT abdomen and pelvis. No evidence of metastatic disease. Stable hepatic genny ioma. TECHNICAL DOCUMENTATION: JOB ID: [id number] Quality ID # 436: Final reports with documentation of one or more dose reduction techniques (e.g., Au tomated exposure control, adjustment of the mA and/or kV according to patient size, use of iterative reconstruction technique) 2010 [employer]- All Rights Reserved Reading location - IP/workstation name: [email or web address]
--- OUTSIDE RECORDS SUMMARY | 2020-07-25 18:09 | XMS REPORT ---
:1960 [facility] [address] [place] [address] Care Team Providers Name Role Phone BENSON Primary Care Physician Unavailable Diego Sheppard Attending Clinician Unavailable PHUC GOODSON Attending Clinician Unavailable PHUC GOODSON Admitting Clinician Unavailable Allergies, Adverse Reactions, Alerts This patient has no known allergies or adverse reactions. Medications Ordered Filled Start Stop Current Ordering Indication Dosage Frequency Signature Comments Components Medication Medication Date Date Medication? Clinician (SIG) Name Name butalbital- Yes 1{tbl} Q4H Take 1 Tab acetaminoph 6-23 by mouth en-caff 00:00: every 4 (FIORICET, 00 hours as ESGIC) needed for 50-325-40 Headache. mg Oral Tablet acetaminoph 2018-09 No 500mg Q6H Take 500 en (TYLENOL 0-28 mg by EXTRA 16:53: mouth STRENGTH) 20 every 6 500 mg Oral hours as Tablet needed for Pain. albuterol 2018-09 No 1{puff} Q6H Take 1 HFA (PROAIR 0-28 Puff by HFA) 90 16:53: inhalation mcg/actuati 20 every 6 on hours as Inhalation needed HFA Aerosol (shortness Inhaler of breath). multivit-ir 2018- No 1{tbl} Take 1 Tab on-FA-calci 0-28 by mouth um-mins 16:53: with (THERA-M) 9 20 supper. mg iron-400 mcg Oral Tablet famotidine 2018-09 Yes 20mg Q.5D Take 1 Tab (PEPCID) 20 0-28 by mouth mg Oral 00:00: every 12 Tablet 00 hours. famotidine 2018-09 No 20mg Q.5D Take 1 Tab (PEPCID) 20 0-28 by mouth mg Oral 00:00: every 12 Tablet 00 hours. dexAMETHaso 2018-09- No Take 1 Tab ne 0-28 11-09 by mouth (DECADRON) 00:00: 23:59 every 8 4 mg Oral 00 :00 hours for Tablet 4 days, THEN 1 Tab every 12 hours for 4 days, THEN 1 Tab daily for 4 days. dexAMETHaso 2018-09- No Take 1 Tab ne 0-28 11-09 by mouth (DECADRON) 00:00: 23:59 every 8 4 mg Oral 00 :00 hours for Tablet 4 days, THEN 1 Tab every 12 hours for 4 days, THEN 1 Tab daily for 4 days. enoxaparin 2018-09 No 40mg QD 40 mg, (LOVENOX) 007-08 Subcutaneo 40 mg/0.4 16:00: 15:59 us, DAILY mL 00 :00 AT 1600, injection First dose 40 mg on 07/09/19 at 1600, For 365 days
In ject at a 90 degree angle.&nbs p; Do NOT expel air bubble at tip of syringe.&n bsp; Do NOT massage injection site.&nbsp ; Alt ernate between the left and right anterolate ral and left and right posterolat eral abdominal wall.&nbsp ; Doc ument administra tion site.& nbsp;BLACK BOX WARNING: Epidural or spinal hematomas may occur in patients who are anticoagul ated with LMWHs or heparinoid s and are receiving neuraxial anesthesia or undergoing spinal puncture. These hematomas may result in long-term or permanent paralysis. Consider these risks when scheduling patients for spinal procedures .
potassium, 2018-09- No 1{packe 1 Packet, sodium 0-27 10-27 t} Oral, phosphates 08:00: 17:11 TWICE A (PHOS-NAK) 00 :00 DAY WITH 280-160-250 MEALS, mg packet 1 First dose Packet on 07/09/19 at 0800, For 2 doses
U se for Neutra-Dheeraj s. &n bsp;Dissol ve in 90 mL water, stir well and drink promptly.< br> cefUROXime 2018-09- No 3055 1.5g Q8H 1.5 g (ZINACEF) 0-25 -26 (0.0243 1.5 g in 20:20: 12:52 g/kg), sodium 00 :00 Intravenou chloride s, at 200 MBP 0.9% mL/hr, 100 mL IVPB Administer over 30 Minutes, EVERY 8 HOURS FREE TIMES, First dose (after last modificati on) on Wed07/07/19 at 2020, For 3 doses
A ctivate Mini-Bag Plus vial prior to patient infusion.< br>Indicat ions: Perioperat kaitlyn Prophylaxi s dexAMETHaso 2018-09- No 4mg Q.25D 4 mg, ne 0-25 10-24 Oral, (DECADRON) 12:00: 11:59 EVERY 6 tablet 4 mg 00 :00 HOURS, First dose on Wed07/07/19 at 1200, For 365 days
Gi ve with food and a full glass of water to reduce GI upset.&nbs p;
levETIRAcet 2018-09- No 500mg Q.5D 500 mg, am (KEPPRA) 0-07 07- Oral, tablet 500 10:00: 09:59 TWICE A mg 00 :00 DAY, First dose on Wed07/07/19 at 1000, For 365 days
Fa ll Risk Medication
famotidine 2018-09- No 20mg Q.5D 20 mg, (PEPCID) 0-25 10-24 Oral, tablet 20 10:00: 09:59 EVERY 12 mg 00 :00 HOURS, First dose on Wed07/07/19 at 1000, For 365 days dexamethaso 2018-09- No 4mg Q.25D 4 mg ne 0-25 10-25 (0.0648 (DECADRON) 00:00: 09:19 mg/kg), 4 mg/mL 00 :50 Intravenou injection 4 s, EVERY 6 mg HOURS, First dose on Wed07/07/19 at 0000, For 30 days
Us e for Decadron. 5 mL Vials contain multiple doses.
senna 2018-09- No 1{tbl} QD 1 Tab, (SENOKOT) 0-24 10-23 Oral, tablet 1 22:55: 21:59 EVERY Tab 00 :00 EVENING, First dose on Margret 07/06/19 at 2255, For 365 days
1 tablet = 8.6 mg Sennosides is equivalent to 187 mg of Senokot.<b r> docusate 2018-09- No 100mg Q.5D 100 mg, sodium 0-24 11-23 Oral, (COLACE) 22:55: 21:59 TWICE A capsule 100 00 :00 DAY, First mg dose on Margret 07/06/19 at 2255, For 30 days labetalol 2018-09- No 10mg Q4H 10 mg (NORMODYNE; 0-24 11-23 (0.162 TRANDATE) 22:50: 22:49 mg/kg), injection 15 :15 Intravenou 10 mg s, EVERY 4 HOURS NEEDED, to maintain SBP <140, hold for HR <70 and use alternate prn, Starting Margret 07/06/19 at 2250, For 30 days
Ma ximum of 300 mg in 24 hours.
hydrALAZINE 2018-09- No 10mg Q2H 10 mg, (APRESOLINE 0-24 11-23 Intravenou ) injection 22:50: 22:49 s, EVERY 2 10 mg 10 :10 HOURS NEEDED, Elevated BP, Starting Margret 07/06/19 at 2250, For 30 days
For PRN use: maintain SBP less than 140 mmHg, hold for HR >70 and use alternate prn
oxyCODONE 2018-09- No 10mg Q4H 10 mg, (ROXICODONE 0-24 10-23 Oral, ) immediate 22:48: 22:47 EVERY 4 release 07 :07 HOURS tablet 10 NEEDED, mg Severe Pain, Starting Margret 07/06/19 at 2248, For 365 days<br&gt ;FALL RISK MEDICATION .
oxyCODONE 2018-09- No 5mg Q4H 5 mg, (ROXICODONE 0-24 10-23 Oral, ) immediate 22:47: 22:46 EVERY 4 release 52 :52 HOURS tablet 5 mg NEEDED, Moderate Pain, Starting Margret 07/06/19 at 2247, For 365 days
FA LL RISK MEDICATION .
electrolyte 2018-09- No 75mL/h 75 mL/hr, -R (pH 7.4) 07-07 Intravenou (NORMOSOL-R 22:25: 11:34 s, at 75 PH 7.4) 00 :19 mL/hr, solution CONTINUOUS , Starting Margret 07/06/19 at 2225, For 1 day famotidine 2018-09- No 20mg Q.5D 20 mg (PEPCID) 07-07 (0.324 injection 22:00: 09:19 mg/kg), 20 mg 00 :50 Intravenou s, Administer over 2 Minutes, EVERY 12 HOURS, First dose on Margret 07/06/19 at 2200, For 365 days
Di lute in 5 mL of 0.9% sodium chloride and give over 2 minutes.<b r> albuterol 2018-09- No 1{puff} Q6H 1 Puff, HFA 07-05 Inhalation (PROVENTIL 20:15: 20:14 , EVERY 6 HFA;VENTOLI 42 :42 HOURS N HFA) 90 NEEDED, mcg/actuati shortness on inhaler of breath, 1 Puff Starting Margret 07/06/19 at 2015, For 365 days
RN to administer . Shake well.&nbsp ;Med Disposal - Aerosol
acetaminoph 2018-09- No 650mg Q6H 650 mg, en 007-05 Oral, (TYLENOL) 20:15: 20:14 EVERY 6 tablet 650 41 :41 HOURS mg NEEDED, Fever, Mild Pain, Headache, Temperatur e greater than 38 C, Starting Margret 07/06/19 at 2015, For 365 days
Pe diatrics:& nbsp;&nbsp ;Do not exceed 5 doses of acetaminop hen in 24 hours.
ondansetron 2018-09- No 4mg Q6H 4 mg (ZOFRAN) 008-05 (0.0648 injection 4 16:51: 16:50 mg/kg), mg 18 :18 Intravenou s, EVERY 6 HOURS NEEDED, Nausea, Vomiting, Starting Margret 07/06/19 at 1651, For 30 days
Do ses 4 mg or less can be administer ed IV push over 3-5 minutes.&n bsp; Doses over 4 mg should be diluted and infused over 15 minutes.&n bsp; &nbs p;
sodium 2018-09- No 100mL/h 100 mL/hr, chloride 0-24 10-24 Intravenou 0.9 % 15:35: 22:22 s, at 100 infusion 00 :44 mL/hr, CONTINUOUS , Starting Margret 07/06/19 at 1535, For 24 hours albuterol 2018-09 Yes 1{puff} Q6H Take 1 HFA (PROAIR 0-24 Puff by HFA) 90 13:58: inhalation mcg/actuati 22 every 6 on hours as Inhalation needed HFA Aerosol (shortness Inhaler of breath). acetaminoph 2018-09 Yes 500mg Q6H Take 500 en (TYLENOL 0-24 mg by EXTRA 13:58: mouth STRENGTH) 22 every 6 500 mg Oral hours as Tablet needed for Pain. dexAMETHaso 2018-09- No 4mg Q.25D Take 4 mg ne 0-24 10-28 by mouth (DECADRON) 13:58: 00:00 every 6 4 mg Oral 22 :00 hours. Tablet dexmedetomi 2018-09- No CONTINUOUS dine HCl 0-24 10-24 PRN, (PRECEDEX) 13:54: 14:03 Starting 100 mcg/mL 00 :53 Margret 200 mcg in 07/06/19 sodium at 1354, chloride Intra-op 0.9 % 48 mL ANES infusion HYDROmorpho 2018-09- No Q1D NEEDED, ne 0-24 10-24 Starting (DILAUDID) 13:37: 14:03 Margret 1 mg/mL 00 :53 07/06/19 injection at 1337, Intra-op ondansetron 2018-09- No Q1D Intravenou (ZOFRAN) 0-24 10-24 s, injection 13:27: 14:03 NEEDED, 00 :53 Starting Margret 07/06/19 at 1327, Intra-op ketamine in 2018-09- No Q1D NEEDED, sterile 0-24 10-24 Starting water 12:31: 14:03 Margret (KETALAR) 00 :53 10/24/19 injection at 1231, Intra-op levETIRAcet 2018-09- No 500mg 500 mg, am (KEPPRA) 0-24 10-24 Intravenou 500 mg in 11:55: 12:05 s, at 400 sodium 00 :00 mL/hr, chloride Administer MBP 0.9% over 15 100 mL IVPB Minutes, ONCE, Margret 07/06/19 at 1155, For 1 dose, Intra-op<b r>Fall Risk Medication &nbs p;Activate Mini-Bag Plus vial prior to patient infusion.< br> phenylephri 2018-09- No Q1D Intravenou ne HCl in 0-24 10-24 s, 0.9% NaCl 1 11:39: 14:03 NEEDED, mg/10 mL 00 :53 Starting (100 Margret mcg/mL) 07/06/19 bolus at 1139, injection Intra-op mannitol 20 2018-09- No CONTINUOUS % infusion 0-24 10-24 PRN, (premix) 11:32: 14:03 Starting 00 :53 Margret 07/06/19 at 1132, Intra-op dexamethaso 2018-09- No Q1D NEEDED, ne 0-24 10-24 Starting (DECADRON) 11:30: 14:03 Margret 4 mg/mL 00 :53 07/06/19 injection at 1130, Intra-op hydrALAZINE 2018-09- No Q1D NEEDED, (APRESOLINE 0-24 10-24 Starting ) injection 11:24: 14:03 Margret 00 :53 07/06/19 at 1124, Intra-op propofol 10 2018-09- No Q1D Intravenou mg/mL 0-24 10-24 s, (DIPRIVAN) 11:20: 14:03 NEEDED, bolus 00 :53 Starting injection Margret 07/06/19 at 1120, Intra-op succinylcho 2018-09- No Q1D Intravenou line-sod 0-24 10-24 s, Cl,iso(PF) 10:50: 14:03 NEEDED, 200 mg/10 00 :53 Starting mL (20 Margret mg/mL) 07/06/19 syringe at 1050, Intra-op rocuronium 2018-09- No Q1D Intravenou (ZEMURON) 0-24 10-24 s, injection 10:49: 14:03 NEEDED, 00 :53 Starting Margret 07/06/19 at 1049, Intra-op lidocaine 2018-09- No Q1D Intravenou PF 0-24 10-24 s, (XYLOCAINE) 10:49: 14:03 NEEDED, 20 mg/mL (2 00 :53 Starting %) Margret injection 07/06/19 at 1049, Intra-op fentaNYL 2018-09- No Q1D NEEDED, (SUBLIMAZE) 0-24 10-24 Starting injection 10:49: 14:03 Margret 00 :53 07/06/19 at 1049, Intra-op remifentani 2018-09- No Intravenou l (ULTIVA) 0-24 10-24 s, 2 mg in 10:49: 14:03 CONTINUOUS sodium 00 :53 PRN, chloride Starting 0.9 % ANES Margret infusion 07/06/19 at 1049, Intra-op propofol 2018-09- No Intravenou (DIPRIVAN) 0-24 10-24 s, infusion 10:49: 14:03 CONTINUOUS (premix) 00 :53 PRN, Starting Margret 07/06/19 at 1049, Intra-op sodium 2018-09- No CONTINUOUS chloride 0-24 10-24 PRN, 0.9 % 10:44: 14:03 Starting infusion 00 :53 Margret 07/06/19 at 1044, Intra-op famotidine 2018-09- No 20mg 20 mg (PEPCID) 0-24 10-24 (0.324 injection 09:45: 10:03 mg/kg), 20 mg 00 :00 Intravenou s, Administer over 2 Minutes, ANES ONCE, Margret 07/06/19 at 0945, For 1 dose, Pre-Op
Dilute in 5 mL of 0.9% sodium chloride and give over 2 minutes.<b r> acetaminoph 2018-09- No 1000mg 1,000 mg, en 0-24 10-24 Oral, ANES (TYLENOL) 09:45: 10:01 ONCE, Margret tablet 00 :00 07/06/19 1,000 mg at 0945, For 1 dose, Pre-Op
Pediatrics : &am p;nbsp;Do not exceed 5 doses of acetaminop hen in 24 hours.
midazolam 2018-09- No 2mg 2 mg (PF) 0-06 07- (0.0324 (VERSED) 09:45: 10:01 mg/kg), injection 2 00 :00 Intravenou mg s, ANES ONCE, Margret 07/06/19 at 0945, For 1 dose, Pre-Op
For patients 70 years of age and older, consider reduced dose of 0.5 mg
lidocaine 2018-09- No .5mL 0.5 mL, PF 0-06 07- Intraderma (XYLOCAINE) 09:45: 10:02 l, ONCE, 10 mg/mL (1 00 :00 Margret %) 07/06/19 injection at 0945, 0.5 mL For 1 dose, Pre-Op
Pre-Operat ively for IV start. May repeat X 2.
cefUROXime 2018-09- No 3055 1.5g 1.5 g (ZINACEF) 007-06 (0.0244 1.5 g in 08:45: 11:28 g/kg), sodium 00 :00 Intravenou chloride s, at 200 MBP 0.9% mL/hr, 100 mL IVPB Administer over 30 Minutes, PRE OP, Margret 07/06/19 at 0845, For 1 dose, Pre-Op
Anes to give 30-60 minutes prior to incision for surgical infection prophylaxi s. Ac tivate Mini-Bag Plus vial prior to patient infusion.< br>Indicat ions: Perioperat kaitlyn Prophylaxi s iohexol 2018-09- No 100mL 35,000 mg (OMNIPAQUE) 0-07-06 (100 mL), 350 mg 08:35: 20:15 Intravenou iodine/mL 11 :59 s, RAD solution ONCE, 35,000 mg Other, Starting Margret 07/06/19 at 0835, For 1 day
For oral administra tion, mix 30 mL contrast with 900 mL water or other patient-pr eferred beverage, such as Lemonade, Richie-Aid, Sprite, 7-Up.&nbsp ; Do not mix with any red colored beverage.& lt;br>Is patient able to answer these questions? Yes
CPM [employer] name and phone number: vinicio case [phone]
Previous contrast reaction (except nausea/vom iting, heat/flush ing/pain)? If yes, describe in comments. No
Pret reatment for current study? No
Kidn ey disease? No
Are you diabetic? No
If yes, are you taking Glucophage , Metformin, Glucovance , or other oral diabete s medication s? No
Hist ory of asthma? If yes, how severe? No
Are you currently taking medication for asthma? No
Hist ory of drug or other allergies? No
Hist ory of anaphylact ic reaction to a drug, food, or other substance? No
Sign ificant cardiac dysfunctio n, e.g. unstable angina, severe congestive failur e, pulmonary hypertensi on? No
Sick le cell disease/Th alessemia? No
Pheo chromocyto ma? No
Mult iple Myeloma? No
Are you currently or nursing an infant? No
Have you had anything to eat or drink in the last 4 hours? No
Have you had a barium study in the last week? No
H ave you ever had cancer? If yes, what kind and when? No
Have you ever had surgery? If yes, what kind and when? Yes
Do you have an implanted device that can be turned off, e.g. pacemaker/ defibril lator or neurostimu lator. If yes, where is it located? No multivit-ir 2018-09 Yes 1{tbl} Take 1 Tab on-FA-calci 0-10 by mouth um-mins 14:49: with (THERA-M) 9 02 supper. mg iron-400 mcg Oral Tablet levETIRAcet 2018-09 Yes 500mg Q.5D Take 1 Tab am (KEPPRA) 0-10 by mouth 500 mg Oral 00:00: twice a Tablet 00 day. levETIRAcet 2018-09 No 500mg Q.5D Take 1 Tab am (KEPPRA) 0-10 by mouth 500 mg Oral 00:00: twice a Tablet 00 day. Albuterol 2017-09- No 1 Sulfate HFA 09-13 07-03 00:00: 10:37 00 :09 dexamethaso 2017-09- No 10mg 10 mg ne 0-12 (0.167 (DECADRON) 10:35: 10:35 mg/kg), 4 mg/mL 00 :00 Intravenou injection s, ONCE, 10 mg 06/24/18 at 1035, For 1 dose
Us e for Decadron. 5 mL Vials contain multiple doses.
bacitracin 2017-09- No Minor 1{appli 1 Each (1 zinc 500 06-24 Bacterial cation} Applicatio unit/gram 10:35: 10:35 Skin n), topical 00 :00 Infections Topical, packet 1 ONCE, Fri Each 06/24/18 at 1035, For 1 dose
Ap ply to pin sites.< br>Indicat ions: Minor Bacterial Skin Infections gadobutrol 2017-09- No 12mL 12 mL, (GADAVIST) 06-25 Intravenou 7.5 07:18: 07:17 s, RAD mmol/7.5 mL 42 :42 ONCE, (1 mmol/mL) Other, injection Starting 12 mL 06/24/18 at 0718, For 1 day
Thi s contrast product does not contain iodine.
Is patient able to answer these questions? No
[employer] name and phone number: Gamma knife
D o you have an implanted device that can be turned off, e.g. pacemaker/ defibril lator or neurostimu lator. If yes, where is it located? No ceFAZolin 2017-09- No 2g 2 g, in dextrose 06-24 Intravenou (iso-os) 06:10: 06:40 s, at 100 (ANCEF) 2 00 :00 mL/hr, gram/50 mL Administer IVPB over 30 (premix) 2 Minutes, g ONCE, Wed06/24/18 at 0610, For 1 dose
Indicatio ns: Recent Crani, s/p GKRS diazePAM 2017-09 No 10mg 10 mg, (VALIUM) 06-24 Oral, tablet 10 06:10: 06:10 ONCE, Fri mg 00 :00 06/24/18 at 0610, For 1 dose
Fa ll Risk Medication . &nb sp;Use for Valium. X 1 prior to frame placement.
lidocaine-p 2017-09 No Topical, rilocaine 06-24 ONCE, Fri (EMLA) 06:10: 06:10 06/24/18 2.5-2.5 % 00 :00 at 0610, cream For 1 dose
To bilateral frontal and posterior head prior to frame placement.
midazolam 2017-09 No 2mg 2 mg (PF) 07-24 (0.0333 (VERSED) 06:06: 06:05 mg/kg), injection 2 29 :29 Intravenou mg s, EVERY 10 MINUTES NEEDED, Anxiety, Starting 06/24/18 at 0606, For 30 days
Fa ll Risk Medication . &nb sp;Up to 5 mg Total.
bacitracin 2017- No Minor 1{appli 1 Each (1 zinc 500 06-07 Bacterial cation} Applicatio unit/gram 16:55: 17:30 Skin n), topical 00 :00 Infections Topical, packet 1 ONCE, Tue Each 06/07/18 at 1655, For 1 dose
Ap ply to pin sites.< br>Indicat ions: Minor Bacterial Skin Infections dexamethaso 2017- No 10mg 10 mg ne 06-07 (0.167 (DECADRON) 16:55: 17:30 mg/kg), 4 mg/mL 00 :00 Intravenou injection s, ONCE, 10 mg 06/07/18 at 1655, For 1 dose
Us e for Decadron. 5 mL Vials contain multiple doses.
gadobutrol No 12mL 12 mL, (GADAVIST) 06-07 Intravenou 7.5 11:41: 11:40 s, RAD mmol/7.5 mL 56 :56 ONCE, (1 mmol/mL) Other, injection Starting 12 mL 06/07/18 at 1141, For 1 day
Thi s contrast product does not contain iodine.
Is patient able to answer these questions? Yes
CPM [employer] name and phone number: [phone] [phone]
Pr evious contrast reaction (except nausea/vom iting, heat/flush ing/pain)? If yes, describe in comments. No
Pret reatment for current study? No
Kidn ey disease? No
Hist ory of drug or other allergies? No
Hist ory of anaphylact ic reaction to a drug, food, or other substance? No
Sick le cell disease/Th alessemia? No
Are you currently or nursing an infant? No
Have you had anything to eat or drink in the last 4 hours? No
Have you had a barium study in the last week? No
H ave you ever had surgery? If yes, what kind and when? No
Do you have an implanted device that can be turned off, e.g. pacemaker/ defibril lator or neurostimu lator. If yes, where is it located? No ceFAZolin 2017- No 2g 2 g, in dextrose 06-07 Intravenou (iso-os) 10:55: 11:25 s, at 100 (ANCEF) 2 00 :00 mL/hr, gram/50 mL Administer IVPB over 30 (premix) 2 Minutes, g ONCE, 06/07/18 at 1055, For 1 dose
In dications: s/p crani diazePAM 2017- No 10mg 10 mg, (VALIUM) 06-07 Oral, tablet 10 10:30: 10:30 ONCE, Tue mg 00 :00 06/07/18 at 1030, For 1 dose
Fa ll Risk Medication . &nb sp;Use for Valium. X 1 prior to frame placement.
lidocaine-p 2017- No Topical, rilocaine 06-07 ONCE, Tue (EMLA) 10:30: 10:30 06/07/18 at 2.5-2.5 % 00 :00 1030, For cream 1 dose
To bilateral frontal and posterior head prior to frame placement.
midazolam 2017- No 2mg 2 mg (PF) 06-07 (0.0333 (VERSED) 10:25: 10:24 mg/kg), injection 2 15 :15 Intravenou mg s, EVERY 10 MINUTES NEEDED, Anxiety, Starting Wed06/07/18 at 1025, For 30 days
Fa ll Risk Medication . &nb sp;Up to 5 mg Total.
levETIRAcet Yes 1000mg Q.5D Take 1 Tab am (KEPPRA) 12 by mouth 1,000 mg 00:00: twice a Oral Tablet 00 day. dexamethaso 2018- No 4mg Take 1 Tab ne 04-24 by mouth (DECADRON) 00:00: 00:00 as 4 mg Oral 00 :00 directed. Tablet Take 4mg TID x 4 days, then BID x 4 days, then QD x 4 days, then D/C. famotidine 2019- No 20mg Q.5D Take 1 Tab (PEPCID) 20 04-24 by mouth mg Oral 00:00: 00:00 twice a Tablet 00 :00 day. multivit-ir Yes 1{tbl} Take 1 Tab on-FA-calci 7- by mouth um-mins 11:59: with (THERA-M) 9 38 supper. mg iron-400 mcg Oral Tablet Ipratropium 2018- No 2 -Albuterol 04-07 00:00: 14:39 00 :00 Flexeril 2018- No 1 9-10 05-12 00:00: 14:38 00 :56 Pegfilgrast No 6mg Pegfilgras im 5-29 surjit 00:00: 00 Palonosetro No .25mg Palonosetr n HCl 5-28 on HCl 00:00: 00 Dexamethaso No 10mg Dexamethas ne Sodium 5-28 one Sodium Phosphate 00:00: Phosphate 00 Sodium No 80mL Sodium Chloride 5-28 Chloride 00:00: 00 Cyanocobala No 1000mg Cyanocobal min 5-28 farias 00:00: 00 Pegfilgrast No 6mg Pegfilgras im 5-07 surjit 00:00: 00 Palonosetro No .25mg Palonosetr n HCl 5-06 on HCl 00:00: 00 Dexamethaso No 10mg Dexamethas ne Sodium 5-06 one Sodium Phosphate 00:00: Phosphate 00 Cyanocobala No 1000mg Cyanocobal min 5-06 farias 00:00: 00 Sodium No 100mL Sodium Chloride 5-06 Chloride 00:00: 00 Levaquin 2018- No 1 4-22 - 00:00: 14:39 00 :00 Pegfilgrast No 6mg Pegfilgras im 4-16 surjit 00:00: 00 Palonosetro No .25mg Palonosetr n HCl 4-15 on HCl 00:00: 00 Dexamethaso No 10mg Dexamethas ne Sodium 4-15 one Sodium Phosphate 00:00: Phosphate Sodium No 40mL Sodium Chloride 4-15 Chloride 00:00: 00 Percocet 2018- No 1 4-15 - 00:00: 14:38 00 :56 Pegfilgrast 2012- No 6mg Pegfilgras im 3-26 05-29 surjit 00:00: 00:00 00 :00 Palonosetro No .25mg Palonosetr n HCl 3-25 on HCl 00:00: 00 Dexamethaso No 10mg Dexamethas ne Sodium 3-25 one Sodium Phosphate 00:00: Phosphate 00 Sodium 0 No 70mL Sodium Chloride 3-25 Chloride 00:00: 00 Carboplatin 2012- No 485mg 3-25 02-07 00:00: 00:00 00 :00 Pemetrexed 2012- No 795mg Disodium 3-25 -28 00:00: 00:00 00 :00 Dexamethaso Yes 1 ne 3- 00:00: 00 Vitamin Yes B-12 3-11 00:00: 00 Folic Acid 2018- No 1 3-11 05-12 00:00: 14:38 00 :56 Cyanocobala 2012-0 2013- No 1000mg Cyanocobal min 3-04 05-28 farias 00:00: 00:00 00 :00 Palonosetro 2012-0 No .25mg Palonosetr n HCl 2-25 on HCl 00:00: 00 Dexamethaso 2012-0 No 10mg Dexamethas ne Sodium 2-25 one Sodium Phosphate 00:00: Phosphate 00 Famotidine 2012-0 No 20mg Famotidine 2-25 00:00: 00 Sodium 2012-0 No 70mL Sodium Chloride 2-25 Chloride 00:00: 00 Palonosetro 2012-0 No .25mg Palonosetr n HCl 2-11 on HCl 00:00: 00 Dexamethaso 2012-0 No 10mg Dexamethas ne Sodium 2-11 one Sodium Phosphate 00:00: Phosphate 00 Famotidine 2012-0 No 20mg Famotidine 2-11 00:00: 00 Sodium 2012-0 No 50mL Sodium Chloride 2-11 Chloride 00:00: 00 Palonosetro 2012-0 No .25mg Palonosetr n HCl 2-04 on HCl 00:00: 00 Dexamethaso 2012-0 No 10mg Dexamethas ne Sodium 2-04 one Sodium Phosphate 00:00: Phosphate 00 Famotidine 2012-0 No 20mg Famotidine 2-04 00:00: 00 Sodium 2012-0 No 70mL Sodium Chloride 2-04 Chloride 00:00: 00 Combivent 2012-0 2018- No 2 2-04 - 00:00: 14:38 00 :56 Palonosetro 2012-0 No .25mg Palonosetr n HCl 1-28 on HCl 00:00: 00 Famotidine 2012-0 No 20mg Famotidine 1-28 00:00: 00 Dexamethaso 2012-0 No 10mg Dexamethas ne Sodium 1-28 one Sodium Phosphate 00:00: Phosphate 00 Sodium 2012-0 No 50mL Sodium Chloride 1-28 Chloride 00:00: 00 Palonosetro 2012-0 No .25mg Palonosetr n HCl 1-21 on HCl 00:00: 00 Dexamethaso 2012-0 No 10mg Dexamethas ne Sodium 1-21 one Sodium Phosphate 00:00: Phosphate 00 Famotidine 2012-0 No 20mg Famotidine 1-21 00:00: 00 Sodium No 50mL Sodium Chloride 1-21 Chloride 00:00: 00 Lorazepam 2012- No .5mg -10-10 00:00: 00:00 00 :00 Sodium No 50mL Sodium Chloride 1-14 Chloride 00:00: 00 Ondansetron 2017- No 1 HCl 09-26 00:00: 14:38 00 :56 Promethazin 2018- No 1 e HCl 09-26 00:00: 14:38 00 :56 Dexamethaso 2012- No 10mg Dexamethas ne Sodium 09-26 one Sodium Phosphate 00:00: 00:00 Phosphate 00 :00 Palonosetro 2012- No .25mg Palonosetr n HCl 09-26 on HCl 00:00: 00:00 00 :00 Sodium 2012- No 80mL Chloride 09-26 00:00: 00:00 00 :00 Carboplatin 2012- No 250mg 09-26 00:00: 00:00 00 :00 DiphenhydrA 2012- No 50mg MINE HCl 09-26 00:00: 00:00 00 :00 Famotidine 2012- No 20mg Famotidine 09-26 00:00: 00:00 00 :00 Paclitaxel 2012- No 79mg 09-26 00:00: 00:00 00 :00 Xanax 2011-09 2019- No 1 03-15 00:00: 10:37 00 :09 CeleXA 2011-09 2018- No 1 05-12 00:00: 14:38 00 :56 OxyCODONE 2011-09- No 1 HCl 05-12 00:00: 14:38 00 :56 Tylenol Yes 1 Decadron 2019- No 1 04-29 14:24 :13 Famotidine 2020- No 1 04-29 14:24 :17 LevETIRAcet 2020- No 1 am 04-29 14:24 :21 Pepcid 2020- No 1 04-29 14:24 :26 Thera Vital 2020- No 1 M 08-17 14:24 :36 Problems Condition Condition Condition Status Onset Resolution Last Treatin g Comments Name Details Category Date Date Treatment Clinician Date 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 causing causing 00:00: mass effect mass effect 00 on adjacent on adjacent structures structures Drug Drug Diagnosis 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 00:00: 00 Other Other Diagnosis active vitamin b12 vitamin b12 3- deficiency deficiency 00:00: anemia anemia 00 08/09 S/P L 08/09 S/P L [id number] Active 2011-09 thoracotomy thoracotomy 10-12 & & 00:00: thoracoscop thoracoscop 00 y,HORACIO y,HORACIO lobectomy lobectomy with en with en bloc chest bloc chest wall wall resection, resection, mediastinal mediastinal lymph node lymph node dissection dissection S/P 08/09 S/P L Problem Active 2011-09 lobectomy thoracotomy 10-12 of lung & 00:00: thoracoscop 00 y,HORACIO lobectomy with en bloc chest wall resection, mediastinal lymph node dissection 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 10-09 00:00: 00 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, in abuse, in 10-09 remission remission 00:00: 00 Acute upper Acute upper Diagnosis active respiratory respiratory infection infection Encounter Encounter Diagnosis 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 Headache Headache Diagnosis active Low back Low back Diagnosis active pain pain Malignant Malignant Diagnosis active neoplasm of neoplasm of upper lobe upper lobe of lung of lung Paroxysmal Paroxysmal Diagnosis active tachycardia tachycardia unspecified unspecified Pain in Pain in Diagnosis active male pelvis male pelvis Secondary Secondary Diagnosis active malignant malignant neoplasm of neoplasm of brain brain Abdominal Abdominal Diagnosis active pain pain Procedures Procedure Date / Time Performed Performing Clinician Willem vides MRI BRAIN W & WO CONTRAST [facility] 2020-06-22 14:25:00 Pino Sneed MRI EXTERNAL RADIOLOGY [facility] 2020-03-23 13:23:00 Lalo Sneed MRI BRAIN W & WO CONTRAST [facility] 2019-12-29 20:27:00 Pino Sneedbeth MRI BRAIN W & WO CONTRAST [facility] 2019-10-03 19:29:00 Pino Sneed GLUCOSE, POC (GLUCOMETER) 2019-07-10 09:47:00 [address]uar t GLUCOSE, POC (GLUCOMETER) 2019-07-10 04:31:00 Ha Goodson Stuar t EKGSCAN 2019-07-10 04:00:00 Unassign, Doctor GLUCOSE, POC (GLUCOMETER) 2019-07-09 21:29:00 Ivan Ha Stuar t GLUCOSE, POC (GLUCOMETER) 2019-07-09 15:58:00 Ivan Ha Stuar t PHOSPHORUS 2019-07-09 07:54:00 Buonanno Delphine Pippa CALCIUM, IONIZED, WHOLE BLOOD 2019-07-09 07:54:00 Buonanno Fernando rubia Pippa MAGNESIUM 2019-07-09 07:54:00 Buonanno Delphine Pippa CBC WITH DIFF 2019-07-09 07:54:00 Buonanno Delphine Pippa BASIC METABOLIC PANEL 2019-07-09 07:54:00 Delphine Her There sa GLUCOSE, POC (GLUCOMETER) 2019-07-09 04:12:00 Ivan Ha Stuar t GLUCOSE, POC (GLUCOMETER) 2019-07-08 21:02:00 Ivan Ha Stuar t GLUCOSE, POC (GLUCOMETER) 2019-07-08 15:54:00 IvanVincentHa Stuar t PHOSPHORUS 2019-07-08 07:54:00 Buonanno Delphine Pippa CALCIUM, IONIZED, WHOLE BLOOD 2019-07-08 07:54:00 BuonaFernando dillon Pippa MAGNESIUM 2019-07-08 07:54:00 Buonanno Delphine Pippa CBC WITH DIFF 2019-07-08 07:54:00 Buonanno Delphine Pippa BASIC METABOLIC PANEL 2019-07-08 07:54:00 Buonanno Delphine There sa EKGSCAN 2019-07-08 04:00:00 Unassign, Doctor GLUCOSE, POC (GLUCOMETER) 2019-07-07 21:45:[address]uar t GLUCOSE, POC (GLUCOMETER) 2019-07-07 10:11:[address] HEAD W/O IV CONTRAST 2019-07-07 08:29:23 Sippey, Lalo Mari abeth CBC WITH DIFF 2019-07-07 07:25:00 Sippey, Lalo Brianne GLUCOSE, POC (GLUCOMETER) 2019-07-07 03:40:00 Ha Goodson ANESTHESIA INTUBATION 2019-07-06 16:00:46 O'AdrielLiudmila sin ANESTHESIA ARTERIAL LINE 2019-07-06 15:50:01 O'AdrielLiudmila sin. PLACEMENT CRANIOTOMY TUMOR NAVIGATION 2019-07-06 14:28:00 Ha Goodson art XRAY SKULL 1-3 VIEWS 2019-07-06 12:59:00 Sippey, Lalo Elizabe th CT HEAD W IV CONTRAST 2019-07-06 12:51:31 Sippey, Lalo Elizab eth XRAY CHEST 2 VIEWS 2019-06-22 20:50:43 Sippey, Lalo Brianne XRAY CHEST 2 VIEWS 2019-06-22 20:50:43 Sippey, Lalo Brianne URINALYSIS, COMPLETE 2019-06-22 20:50:00 Sippey, Lalo Elizabe th CBC WITH DIFF 2019-06-22 20:50:00 Sippey, Lalo Brianne BASIC METABOLIC PANEL 2019-06-22 20:50:00 Sippey, Lalo Elizab eth PT (PROTHROMBIN TIME) WITH INR 2019-06-22 20:50:00 Sippey, Caitl in Brianne PTT 2019-06-22 20:50:00 Sippey, Lalo Brianne TYPE & SCREEN 2019-06-22 20:50:00 Sippey, Lalo Brianne POC - HEMOGLOBIN W/ CPT 2019-06-22 00:00:00 Aurelia Vigil ([id number]) Singh MRI OUTSIDE CD 2018-08-10 15:39:09 Unassign, Doctor MRI BRAIN W IV CONTRAST 2018-06-24 07:50:11 Ha Goodson MRI BRAIN W IV CONTRAST 2018-06-07 12:19:38 Ha Goodson Flu vaccine 2016-07-09 00:00:00 colonoscopy 2013-09-13 00:00:00 Lung bx cholecystectomy hysterectomy Results Test Description Test Time Test Comments Text Results Atomic Results Result Comments MRI BRAIN W & WO 2020-06-22 <<<<<<<<<<<<<<< THIS IS AN EXTERNAL RADIOLOGY CONTRAST X[facility] 13:45:00 RESULT FROM >>>>>>>>>>>>>>><<<<<<<<<< <<<<<<<<<<<< [facility] >>>>>>>>>>>>>>>>> >>>>>> MR BRAIN, WITHOUT AND WITH CONTRAST Te chnique: Multi-planar T1, T2, FLAIR, and diffusion weighted MR images of the br ain were obtained before and followingthe unev entful administration of 6 ml of Gadavist intravenous gadolinium conta ining contrast material. Indication: Evalua tion/surveillance for brain tumor Patients wor ds--Routine 3 month check. Prior history of horacio ngcancer. Comparison: 12/29/2019 020 Findings: Study is technically adequate. Sta tus post left frontal craniotomy. Resectio n cavity in the subjacent leftfrontal lobe c ontaining some nodular areas of enhancement and moderate surrounding vasogenic edema. The area ofenhancement appears worse, measuring up to 11 mm in thickness on the study compared with 8 mm in thickness onthe March study and 6 mm in thickness on the study from December. Adjacent edematous changes a re stable to minimally worse. Focal encep halomalacia in the left occipital lobe deep to a craniotomy defect with mild enhancement along thesuperomedial margin of the resection cavi ty is unchanged. No hydrocephalus or midline ricardo ft. No abnormal diffusion restriction. No ne w areas of enhancement. The cerebellart onsils are located. There is a normal posterior pituitary bright spot. Flow is present within the basilar artery andboth internal carotid art eries. The cerebellopontine angles and internal auditory canals are symmetric in appe arance.Symmetric, normal T2 signal is present in Meckels cave bilaterally. Minimal mucosal thickening scattered in theparanasal si nuses. Impression:1. Progressive enhancing soft tissue at the margins of the left frontal lobe resection cavity remains con cerning forprogression of residual/r ecurrent neoplasm.2. Stable postsur gical changes in the left occipital lobe. Alt kym stability is reassuring, residual neoplas m is notcompletely excluded.3. No new lesions are identified. Final report electronically signed by: Dulce Rosario MD Electronically Si gned By: DULCE ROSARIO MD on 06/22/2020 06:3 9 PM Interface, Radresults_Incoming - 2019 6:50 PM EDT<<<<<<<<<<<<<<< THIS I S AN EXTERNAL RADIOLOGY RESULT FROM >>>>&g t;>>>>>>>>>> <<<<<<<<<<<<<<<<<<<<<< [facility] >>>>>>>>>>>>>>>>>>>>>>> MR B RAIN, WITHOUT AND WITH CONTRAST Technique: Mul ti-planar T1, T2, FLAIR, and diffusion weighte d MR images of the brain were obtained before a nd following the uneventful administration of 6 ml of Gadavist intravenous gadolinium conta ining contrast material. Indication: Evalua tion/surveillance for brain tumor Patients wor ds--Routine 3 month check. Prior history of lung cancer. Comparison: 12/29/2019 020 Findings: Study is technically adequate. Sta tus post left frontal craniotomy. Resectio n cavity in the subjacent left frontal lobe containing some nodular areas of enhancement and moderate surrounding vasogenic edema. The area of enhancement appears worse, m easuring up to 11 mm in thickness on the study compared with 8 mm in thickness on march study and 6 mm in thickness on the study from December. Adjacent edematous changes a re stable to minimally worse. Focal encep halomalacia in the left occipital lobe deep to a craniotomy defect with mild enhancement along the superomedial margin of the resection cavi ty is unchanged. No hydrocephalus or midline ricardo ft. No abnormal diffusion restriction. No ne w areas of enhancement. The cerebellar tonsils are located. There is a normal p osterior pituitary bright spot. Flow is present within the basilar artery and both internal car otid arteries. The cerebellopontine angles and internal auditory canals are symmetric in appe arance. Symmetric, normal T2 signal is present in Meckels cave bilaterally. Minimal mucosal thickening scattered in the paranasal s inuses. Impression: 1. Progressive enhancing sof t tissue at the margins of the left frontal lobe resection cavity remains concerning fo r progression of residual/recurrent neoplasm. 2. Stable postsurgical changes in the left occipital lobe. Although stability is reassuring, residual neoplasm is not com pletely excluded. 3. No new lesions are identi fied. Final report electronically signed by: Marta Rosario MD EXTERNAL 2020-03-23 <<<<<<<<<<<<<<< THIS IS AN E XTERNAL RADIOLOGY RADIOLOGY XAF 12:00:00 RESULT FROM >>>>>>>>>>>>>>><<<<<<<<<< <<<<<<<<<<<< [facility] >>>>>>>>>>>>>>>>> >>>>>> MRI OF THE BRAIN, WITH AND WITHOUT CONT RAST03/23/2020 COMPARISON: Multiple prior e xaminations, most recently 12/29/2019TECHNIQUE: Multiplanar, multisequence images of the brain obtained both before and after the adminis tration of 10 mL Gadavist contrast. Perfusion imaging also provided. INDICATION: Metast atic disease. Follow-up. FINDINGS: Left fr ontal and left occipital resection cavities . 1.1 cm nodular area along the medial cabinetmaker supervisor ior aspect ofthe left frontal resection cavit y measuring 1.1 cm (image 82, T1 post axial) ap pears to be progressive over the priorex aminations dating back to 10/03/2019. Possible increased blood flow and volume in this herberth on. The remainder of linearthick enhancement a long the posterior margin of the surgical cavit y is only questionably progressed from 12/29/2019though configuration is not greatly changed. Questionable slightly progre ssed surrounding T2 signal within the leftfronta l lobe, though differences in technique may contribute. The left occipital lobe cavity w ith a questionably slightly linear/nodular ill- defined area along the superior margin ofthe kennedy rgical cavity is relatively unchanged dating back to 10/03/2019 measuring up to 0.9 cm (imag e 84, T1 post axial).No definite abnormal perfusion in this region. There is no new abno rmality identified. IMPRESSION:1. Operative mejia ges from resection of left frontal and left occ ipital lobe metastatic lesions. Increasi ng nodularityalong the medial posterior aspect of the left frontal surgical cavity with increas ed perfusion could represent an areaof early re currence. More linear thick enhancement yeni ng the posterior margin of the surgical left frontal cavity is isslightly more prominent th ough unchanged in configuration, possibly oper ative change versus neoplasm. Question ofincreas ed adjacent vasogenic edema or gliosis, though differences in technique may contribute. 2. Mild linear/nodular abnormality w ithin the left occipital lobe resection bed is not greatly changed in the interval,favo ring operative change.3. No new lesion, mas s effect, midline shift or other acute complic ating features. Final report electronically signed by: Tai Valencia MD Electronically Si gned By: TAI VALENCIA MD on 03/23/2020 09:3 8 PM Interface, Radresults_Incoming - 2019 9:50 PM EDT<<<<<<<<<<<<<<< THIS IS A N EXTERNAL RADIOLOGY RESULT FROM >>>>>> >>>>>>>>> <<<<<<<<<<<<<<<<<<<<<< [facility] >>>>>>>>>>>>>>>>>>>>>>> M RI OF THE BRAIN, WITH AND WITHOUT CONTRAST 07/2020 COMPARISON: Multiple prior examinations, most recently 12/29/2019 TECHNIQUE: Multipl lashay, multisequence images of the brain obtained both before and after the administration of 10 mL Gadavist contrast. Perfusion imaging also provided. INDICATION: Metastatic disea se. Follow-up. FINDINGS: Left frontal and l eft occipital resection cavities. 1.1 cm n odular area along the medial posterior aspect of the left frontal resection cavity measuring 1 .1 cm (image 82, T1 post axial) appears to be pr ogressive over the prior examinations dating ba ck to 10/03/2019. Possible increased blood sage w and volume in this region. The remainder o f linear thick enhancement along the cabinetmaker supervisor ior margin of the surgical cavity is only ques tionably progressed from 12/29/2019 though config uration is not greatly changed. Questionabl e slightly progressed surrounding T2 si gnal within the left frontal lobe, though di fferences in technique may contribute. Th e left occipital lobe cavity with a questiona mode slightly linear/nodular ill-defined a asuncion along the superior margin of the surgi lázaro cavity is relatively unchanged dating back to 10/03/2019 measuring up to 0.9 cm (imag e 84, T1 post axial). No definite abnormal perfusion in this region. There is no new abno rmality identified. IMPRESSION: 1. Operative justin nges from resection of left frontal and left occ ipital lobe metastatic lesions. Increasi ng nodularity along the medial posterior aspect of the left frontal surgical cavity with increas ed perfusion could represent an area of early r ecurrence. More linear thick enhancement yeni ng the posterior margin of the surgical left frontal cavity is is slightly more prominent t kym unchanged in configuration, possibly oper ative change versus neoplasm. Question of increa sed adjacent vasogenic edema or gliosis, though differences in technique may contribute. 2. Mild linear/nodular abnormality w ithin the left occipital lobe resection bed is not greatly changed in the interval, fav oring operative change. 3. No new lesion, ma ss effect, midline shift or other acute complic ating features. Final report electronically signed by: Tai Valencia MD Electronically Si gned By: TAI VALENCIA MD on 03/23/2020 09:3 8 PM MRI BRAIN W & WO 2019-12-29 <<<<<<<<<<<<<<< THIS IS AN EXTERNAL RADIOLOGY CONTRAST [facility] 15:30:00 RESULT FROM >>>>>>>>>>>>>>><<<<<<<<<< <<<<<<<<<<<< [facility] >>>>>>>>>>>>>>>>> >>>>>> Clinical: 59-year-old, with lung carci noma, follow-up brain metastasis TECHNIQUE: Multiplanar, multisequence imaging of the brain was performed prior to and follo wing administration of 6 mLIV Gadavist COMPARISO N: Multiple prior brain MRIs and head CTs, the most recent a [facility] 020 brain MRI withgadolinium FINDINGS: Lef t, medial parietal resection bed exhibits patch y enhancement at the superior-lateral medial margin of theresection bed measuring 1 2 x 12 mm on the coronal reformatted images c ompared to 12 x 8 mm mm on the axial images T1 images the measurements currently are 1 2 x 12 mm compared to 12 x 8 mm. There is also associated restricted diffusion. Left f rontal resection bed exhibits enhancement yeni ng the margin of the resection medially and d orsally with morepronounced enhancement a nd a larger nodular area and extension along adj acent gyri. There is also associated restricte ddiffusion. No other enhancing brain lesion s. No other areas areas of restricted diffusio n. There is evidence of residualhemoside rin associated with the resection sites. There i s T2 hyperintense signal in white matter adjac ent to the resection bed the frontal lo be more than at the leftoccipital lobe. The vent ricles, sulci and cisterns are normal in size. No definite ischemic findings or other a ctive hemorrhage. Therest of brain exhibits no rmal signal characteristics. No midline or downward shift. Major intracranial vessels e xhibit appropriate flow voids. Orbits are unrem arkable. Mild paranasal sinus mucoperioste al thickening, no fluid or opacification. The mastoids andmiddle ears are clear. IMPRESSION:1 . Increased enhancement/restricted diffu monalisa associated with the left frontal and le ft occipital resection bed,concerning for residual, growing neoplasm. Vasogenic edema as sociated with these resection site/lesions2. No new enhancing intracranial lesions3. No ac alatna intracranial abnormalities Final report e lectronically signed by: Moses Ramirez MD El ectronically Signed By: ILIANA RAMIREZ MD on 12/12 05:12 PM Interface, Radresults_Incomi ng - 12/29/2019 5:20 PM EDT<<<<<<<<<<<<<<< T HIS IS AN EXTERNAL RADIOLOGY RESULT FROM >>>>>> >>>>>>>>> <<<<<<<<<<<<<<<<<<<<<< [facility] >>>>>>>>>>>>>>>>>>>>>>> C linical: 59-year-old, with lung carci noma, follow-up brain metastasis TECHNIQUE: Multiplanar, multisequence imaging of the brain was performed prior to and follo wing administration of 6 mL IV Gadavist COMPARIS ON: Multiple prior brain MRIs and head CTs, the most recent a [facility] 020 brain MRI with gadolinium FINDINGS: Left, m edial parietal resection bed exhibits patch y enhancement at the superior-lateral medial margin of the resection bed measuring 12 x 12 mm on the coronal reformatted images c ompared to 12 x 8 mm mm on the axial images T1 images the measurements currently are 1 2 x 12 mm compared to 12 x 8 mm. There is also associated restricted diffusion. Left f rontal resection bed exhibits enhancement yeni ng the margin of the resection medially and d orsally with more pronounced enhancement and a larger nodular area and extension along adj acent gyri. There is also associated restricte d diffusion. No other enhancing brain lesion s. No other areas areas of restricted diffusio n. There is evidence of residual hemosid conor associated with the resection sites. Th ere is T2 hyperintense signal in white matter adjacent to the resection bed the fronta l lobe more than at the left occipital lobe. The ventricles, sulci and cisterns are normal in s ize. No definite ischemic findings or other a ctive hemorrhage. The rest of brain exhibits n ormal signal characteristics. No midline or downward shift. Major intracranial vessels e xhibit appropriate flow voids. Orbits are unrem arkable. Mild paranasal sinus mucoperioste al thickening, no fluid or opacification. The mastoids and middle ears are clear. IMPRESSION: 1. Increased enhancement/restricted diffu monalisa associated with the left frontal and le ft occipital resection bed, concerning fo r residual, growing neoplasm. Vasogenic edema as sociated with these resection site/lesions 2. No new enhancing intracranial lesions 3. No a cute intracranial abnormalities Final report e lectronically signed by: Moses Ramirez MD El ectronically Signed By: ILIANA RAMIREZ MD on 12/12 05:12 PM MRI BRAIN W & WO 2019-10-03 <<<<<<<<<<<<<<< THIS IS AN EXTERNAL RADIOLOGY CONTRAST [facility] 14:46:00 RESULT FROM >>>>>>>>>>>>>>><<<<<<<<<< <<<<<<<<<<<< [facility] >>>>>>>>>>>>>>>>> >>>>>>NAME: STEPH TOURE AUBREY VALDERRAMA : : [address] [place] [id number]- PHYSICIANCAITLIN WILBERT SNEED- CDATE: [birth year][address] [place] [id number] MR CONTRAST NOS,1MLMRI BRAIN W/O & W/CONTRASTMR BRAIN, WI THOUT AND WITH CONTRASTTechnique:Multi-plan ar T1, T2, FLAIR, and diffusion weighted MR im ages of the brain were obtained before and fol lowingthe uneventful administration of 6 cc Gadavist intravenous gadolinium conta ining contrast material.Indication: (1) 6mL Gadavist given....(2) Follow up brain tumor..Comparison:June 14, 2019Findings:Study is technically adequate.Sinc e the prior study, there is a new left parieto- occipital craniotomy with resection ca vity in the subjacent leftoccipital lobe at the site of the previously seen peripherally enhancing lesion. There is minimal curvilinear enhancement at the margins of the resection cav ity with a more nodular focus of enhancement along the superomedialaspect of the re section cavity measuring approximately 12 x 8 mm in coronal and axial dimension. Mild T2 signalhyperintensity in the adjacent occipital lobe parenchyma.Redemonstrat ion of remote postsurgical changes in the left frontal region with encephalomalacia in the subjacent leftfrontal lobe, minimal kennedy perficial enhancement and stable T2 si gnal hyperintensity in the adjacent frontal lobe whitematter. No new lesions are identified.N o evidence for acute hemorrhage, hydrocepha silver or midline shift. No abnormal diffusion restriction. The cerebellartonsils are locate d. There is a normal posterior pituitary b right spot. Flow is present within the basilar a rtery andboth internal carotid arteries. T he cerebellopontine angles and internal auditory canals are symmetric in appearance.Symm etric, normal T2 signal is present in Meckel' s cave bilaterally. Minimal mucosal thickening s cattered in theparanasal sinuses. Opacif ication of a few left mastoid air cells.Impre ssion:1. New postsurgical changes in the left occipital lobe. A nodular focus of enh ancement along the superomedial aspect ofthe re section cavity could represent recurrent/re sidual tumor. Today's study will serve as a baseline for futurecomparison.2. Stable postsurgical changes in the left frontal lobe.3. No new lesions are identified.Final report electronically signed by: QIANA Francisco MDTRANSCR IBED BY:APPROVED BY: DULCE ROSARIO 10-03-19 02:40:45 PMRMS//ATInterfaNasrin martell ts_Incoming - 10/03/2019 2:50 PM EST<<<<<& lt;<<<<<<<<< THIS IS AN EXTERNAL RADIOLOGY RES ULT FROM >>>>>>>>>>>>>>> <<<<<<<<< <<<<<<<<<<<<< [facility] >>>>>>>>>>>>>>>&g t;>>>>>>> NAME: STEPH TOURE Charly ALEJANDRO SANTIAGO NT ID: [id number] ERAD LOCAL ADDRESS: OB: [birth year] [address] [place] [id number]- PHYSICIAN LALO SNEED PA-C DATE: [address] [place] [id number]- AD-BASE MR CONTRAST NOS,1ML MRI BRAIN W/O & W/CO NTRAST MR BRAIN, WITHOUT AND WITH CONTRAST Te chnique: Multi-planar T1, T2, FLAIR, and diffusion weighted MR images of the br ain were obtained before and following the une ventful administration of 6 cc Gadav ist intravenous gadolinium containing contra st material. Indication: (1) 6mL Gadavist given....(2) Follow up brain tumor.. Comp daron: June 14, 2019 Findings: Study is tech nically adequate. Since the prior study, there is a new left parieto-occipital craniotomy with resection cavity in the subjacent left occipital lobe at the site of the previously s een peripherally enhancing lesion. There is m inimal curvilinear enhancement at the margins o f the resection cavity with a more nodular f ocus of enhancement along the superomedial aspec t of the resection cavity measuring approximate ly 12 x 8 mm in coronal and axial dimension. Mild T2 signal hyperintensity in the adjace nt occipital lobe parenchyma. Redemonstration of remote postsurgical changes in the left frontal region with encephalomalacia in the subjacent left frontal lobe, minimal superf icial enhancement and stable T2 signal hyperin tensity in the adjacent frontal lobe white matter. No new lesions are identified. No e vidence for acute hemorrhage, hydrocephalus or midline shift. No abnormal diffusion restricti on. The cerebellar tonsils are located. There i s a normal posterior pituitary bright s pot. Flow is present within the basilar a rtery and both internal carotid arteries. T he cerebellopontine angles and internal auditory canals are symmetric in appearance. Sym metric, normal T2 signal is present in Meckel' s cave bilaterally. Minimal mucosal thickening s cattered in the paranasal sinuses. Opacifica tion of a few left mastoid air cells. Impressio n: 1. New postsurgical changes in the left occipital lobe. A nodular focus of enh ancement along the superomedial aspect of the r esection cavity could represent recurrent/re sidual tumor. Today's study will serve as a baseline for future comparison. 2. Stable postsurgical changes in the left frontal lobe. 3. No new lesions are identified. Sarahi cabral report electronically signed by: MD DULCE Francisco MD TRANSCRI BED BY: APPROVED BY: DULCE ROSARIO 10-03-19 02:40:45 PM [facility]//AT GLUCOSE, POC (GLUCOMETER) 2019-07-10 05:51:01 Test Item Value Reference Range Comments Glucose (poct) (test code = 2339-0) 118 mg/dL 70-100 Lab Interpretation (test code = 53202-8) Abnormal BASIC METABOLIC [id number] 05:15:00 Test Item Value Reference Range Comments BUN (test code = 3094-0) 22 mg/dL 10-20 Sodium (test code = 2951-2) 136 mEq/L 136- 145 mEq/L Potassium (test code = 2823-3) 4.2 mEq/L 3.4- 4.4 mEq/L Chloride (test code = 2075-0) 106 mEq/L 98- 107 mEq/L Bicarbonate (TCO2) (test code = 8-9) 21 mEq/L 22- 29 m Eq/L Glucose (test code = 2345-7) 113 mg/dL 70-105 Creatinine (test code = 2160-0) 0.71 mg/dL 0.57-1.11 Anion Gap (calc.) (test code = 23303-7) 9 mEq/L 4- 12 mE q/L Calcium (test code = 96504-5) 8.3 mg/dL 8.4-10.2 GFR, non-AA, (est.) (test code = 85 mL/Min/1.73 m2 >59 mL/Min/1. 73 m2 04328-1) GFR, AA, (est.) (test code = 82777-2) >90 >59 mL/Min /1.73 m2 Lab Interpretation (test code = Abnormal 04540-5) [id number] 05:15:00 Test Item Value Reference Range Comments Magnesium (test code = 68552-4) 2.1 mg/dL 1.6-2.6 [id number] 05:15:00 Test Item Value Reference Range Comments Phosphorus (test code = 2777-1) 2.1 mg/dL 2.3-4.7 Lab Interpretation (test code = 97070-4) Abnormal CBC WITH [id number] 04:44:07 Test Item Value Reference Range Comments WBC (test code = 6690-2) 11.86 k/uL 4.5- 11.0 k/uL RBC (test code = 789-8) 4.06 M/uL 3.8- 5.2 M/uL Hemoglobin (test code = 718-7) 12.8 g/dL 12-16 Hematocrit (calc.) (test code = 4544-3) 39.0 % 35-47 MCV (test code = 787-2) 96.1 fL 80-100 MCH (test code = 785-6) 31.5 pg 26-34 MCHC (calc.) (test code = 786-4) 32.8 g/dL 32-36 RDW (test code = 788-0) 12.8 % 11.5-14.5 Platelet (test code = 777-3) 193 k/uL 150- 440 k/uL Mean Platelet Volume (test code = 39488-8) 10.4 fL 7.4-1 0.6 Differential Type (test code = 221027) AUTOMATED Neutrophil (%) (test code = 67997-7) 87 % Lymphocyte (%) (test code = 736-9) 7 % Monocyte (%) (test code = 5905-5) 5 % Eosinophil (%) (test code = 713-8) 0 % Basophil (%) (test code = 706-2) 0 % Immature Granulocytes (%) (test code = 33992-8) 1 % Neutrophil (#) (test code = 63403-8) 10.33 k/uL 1.8- 7.7 k/ uL Lymphocyte (#) (test code = 731-0) 0.83 k/uL 1.0- 4.8 k/uL Monocyte (#) (test code = 742-7) 0.60 k/uL 0.0- 0.8 k/uL Eosinophil (#) (test code = 884148) 0.01 k/uL 0.0- 0.5 k/u L Basophil (#) (test code = 704-7) 0.01 k/uL 0.0- 0.2 k/uL Immature Granulocytes (#) (test code = 69264-8) 0.08 k/uL 0 k/uL Lab Interpretation (test code = 18888-1) Abnormal CALCIUM, IONIZED, WHOLE [id number] 04:38:35 Test Item Value Reference Range Comments Calcium, Ionized (test code = 32988-1) 4.7 mg/dL 4.5-5.3 CT HEAD W/O IV [id number] 04:44:00Impression: Recent postsurgical changes of left occipital mass resection as above. Reading Doctor: Rosemarie Díazlectronic Signature by: Olivier Daíz HEAD W/O IV CONTRAST Indication:post-op exam s/p crani for left occipital brain mass Comparison: Prior day . Technique:[address] images were obtained of the head without contrast. Findings: Postsurgical changes left occipital mass resection with pneumocephalus and small amount of hemorrhage about the resection cavity. There is also smallamount of extra-axial air, fluid and blood products overlying the surgical bed. Minimal scalp swelling. Surrounding vasogenic edema about the resection cavity is similar to prior day CT. Moderate size area of left frontal encephalomalacia. Remote left frontal craniotomy. Unchanged ventricular size. The subarachnoid cisterns are patent. The paranasal sinuses are well aerated. The imaged portions of the orbits and globes are without acute abnormality. The mastoid air cells are clear. Interface, results_Incoming - 07/07/2019 4:47 AM EDTCT HEAD W/O IV CONTRAST Indication: post-op exam s/p crani for left occipital brain mass Comparison: Prior day . Technique: [address] images were obtained of the headwithout contrast. Findings: Postsurgical changes left occipital mass resection with pneumocephalus and small amount of hemorrhage about the resection cavity. There is also small amount of extra-axial air, fluid and blood products overlying the surgical bed. Minimal scalp swelling. Surrounding vasogenic edema about the resection cavity is similar to prior day CT. Moderate size area of left frontal encephalomalacia. Remote left frontal craniotomy. Unchanged ventricular size. The subarachnoid cisterns are patent. The paranasal sinuses are well aerated. The imaged portions of the orbits and globes are without acute abnormality. The mastoid air cells are clear. IMPRESSION Impression: Recent postsurgical changes of left occipital mass resection as above. Reading Doctor: Doroteo Díaz Electronic Signature by: Doroteo DíazMO HEAD W IV CONTRAST 2019-07-06 15:29:00IMPRESSION:1. Limited treatment planning imaging as described. Reading Doctor: Trino Valenciaic Signature by: Logan Valencialong [facility], with rfsnoyqa16/24/2019 COMPARISON: MR 06/24/2018 T ECHNIQUE: 0.625 mm axial images obtained of the head after the administration of 100 cc of Omnipaquecontrast for treatment planning purposes. INDICATION: Brain lab scan. FINDINGS: Frontal craniotomy changes. Ill-defined encephalomalacia within the left frontal lobe without nodular enhancement. Linearenhancement. A 1.9 cm enhancing nodule within the left occipital lobe is not greatly changed. Previously questioned abnormal enhancement within the right fourth ventricle choroid plexus is not well seen on today's examination. There is no definite new area of enhancement. Interface, Radresults_ - 07/06/2019 3:[address], with contrast 07/06/2019 COMPARISON: MR 06/24/2018 TECHNIQU E: 0.625 mm axial images obtained of the head after the administration of 100 cc of Omnipaque contrast for treatment planning purposes. INDICATION: Brain lab scan. FINDINGS: Frontal craniotomy changes.Ill-defined encephalomalacia within the left frontal lobe without nodular enhancement. Linear enhancement. A 1.9 cm enhancing nodule within the left occipital lobe is not greatly changed. Previously questioned abnormal enhancement within the right fourth ventricle choroid plexus is not well seen on today's examination. There is no definite new area of enhancement. IMPRESSION IMPRESSION: 1. Limited treatment planning imaging as described. Reading Doctor: Dima Valencia Electronic Signature by: Marilou [id number] 12:00:46Liudmila Miles CRNA 07/06/2019 12:01 PMAirway General Information:Date/Time: 07/06/2019 10:52 AM Airway not difficult Indications and Patient ConditionPatient position: sniffing Adequate mask vent: Yes Final Airway DetailsFinal airway type: endotracheal airwaySuccessful airway: standard ETTETT size (mm): 7.0Cuffed: yesSuccessful intubation technique: direct laryngoscopyCormack-Lehane Classification: grade I - full view of glottisFacilitating devices/methods: cricoid pressure and intubat ing stylet (maintained until EtCO2 confirmed)Endotracheal tube insertion site: oralBlade: MacintoshBlade size: #3Placement verified by: chest auscultation and capnometry ETT secured at: 21 and right side lip cm.Inital cuff pressure (cm H2O): , MINIMALLY OCCLUSIVE PRESSUREEyes protected: taped closed AttemptsNumber of attempts at approach: 1 Lung Isolation:none Performed by: Liudmila Miles CRNAArterial [id number] 11:50:01Liudmila Miles CRNA 07/06/2019 11:54 AMArterial Line: Procedure Details:Patient prepped in sterile fashion, timeout performed and Seldinger technique used. A 20 gauge (size) catheter was placed into the left radialLine secured with tape and Tegaderm.Events:Patient tolerated procedure well with no complications. Additional Notes:Right wrist small hematoma noted after 1 attempt. Pressure held for 5 minutes and dressing applied. Left radial arterial line per KELSY Rascon with angiocath x2 attempts. Noted to be positional at insertion, supported with wrist stabilizer. Performed by: Dallas Rascon MDXRAY SKULL 1-3 VIEWS 2019-07-06 10:06:00IMPRESSION: Postoperative changes from left frontotemporal craniotomy Reading Doctor: Caitlin Galindolectronic Signature by: Salvador Galindolinical history: Postcraniotomy, AP and lateral skull radiographs obtain to localize bone flap Skull, 2 views 07/06/2019: TECHNIQUE: AP and lateral views of the skull were obtained. COMPARISON: Cranial CT 07/06/2019 FINDINGS: Postoperative changes are seen from left frontotemporal craniotomy. Round/ovoid left frontotemporal bone defect is present stabilized by 3 miniplates and multiple small screws. No complicating features are identified with the hardware. Edentulous upper and lower alveoli noted. Other imaged osseous structures are unremarkable. Mild cervical spondylosis is present within the imaged portion of the cervical spine. Interface, Radresults_Incoming - 07/06/2019 10:09 AM EDTClinical history: Postcraniotomy, AP and lateral skull radiographs obtain to localize bone flap Skull, 2 views 07/06/2019: TECHNIQUE: AP and lateral views of the skull were obtained. COMPARISON: Cranial CT 07/06/2019 FINDINGS: Postoperative changes are seen from left frontotemporal craniotomy. Round/ovoid left frontotemporal bone defect is present stabilized by 3miniplates and multiple small screws. No complicating features are identified with the hardware. Edentulous upper and lower alveoli noted. Other imaged osseous structures are unremarkable. Mild cervical spondylosis is present within the imaged portion of the cervical spine. IMPRESSION IMPRESSION: Postoperative changes from left frontotemporal craniotomy Reading Doctor: Myles Galindo Electronic Signature by: Caitlin Galindo (PROTHROMBIN TIME) WITH INR 2019-06-22 20:19:27 Test Item Value Reference Range Comments PT (test code = 5902-2) 12.1 sec 10.2- 12.9 sec INR (test code = 6301-6) 1.1 INR, Therapeutic Range (test code = STD THER RANGE 2-3 298786) [id number] 20:19:27 Test Item Value Reference Range Comments aPTT (test code = 55115-3) 25.7 sec 25.1- 36.5 sec TYPE & [id number] 20:18:17 Test Item Value Reference Range Comments PRODUCT CODE (test code = COMPONENT GROUP FOR RED CELLS 933-2) Blood Type ABO, Rh (test code B POS = 882-1) Antibody Screen (test code = NEG 890-4) BASIC METABOLIC [id number] 19:31:06 Test Item Value Reference Range Comments BUN (test code = 3094-0) 19 mg/dL 10-20 Sodium (test code = 2951-2) 139 mEq/L 136- 145 mEq/L Potassium (test code = 2823-3) 4.2 mEq/L 3.4- 4.4 mEq/L Chloride (test code = 2075-0) 108 mEq/L 98- 107 mEq/L Bicarbonate (TCO2) (test code = 2027-9) 18 mEq/L 22- 29 m Eq/L Glucose (test code = 2345-7) 92 mg/dL 70-105 Creatinine (test code = 2160-0) 0.90 mg/dL 0.57-1.11 Anion Gap (calc.) (test code = 82879-3) 13 mEq/L 4- 12 mE q/L Calcium (test code = 02658-3) 9.8 mg/dL 8.4-10.2 GFR, non-AA, (est.) (test code = 65 mL/Min/1.73 m2 >59 mL/Min/1. 73 m2 61946-0) GFR, AA, (est.) (test code = 62875-3) 78 mL/Min/1.73 m2 >59 mL/M in/1.73 m2 Lab Interpretation (test code = Abnormal 87377-9) URINALYSIS, [id number] 19:08:42 Test Item Value Reference Range Comments Appearance, urine (test code = CLEAR CLEAR^CLEAR 5767-9) Color, urine (test code = STRAW YEL^YELLOW 5778-6) Specific [place], urine (test 1.025 1.005-1.030 code = 5811-5) pH, urine (test code = 5803-2) 6.0 4.5-8.0 Protein, urine (test code = NEG NEG^NEG 5804-0) Glucose, urine (test code = NEG NEG^NEG 5792-7) Ketones, urine (test code = NEG NEG^NEG 5797-6) Hemoglobin, urine (test code = NEG NEG^NEG 5794-3) Urobilinogen, urine (test code = NORM NORM^NORM 60233-3) Bilirubin, urine (test code = NEG NEG^NEG 5770-3) Nitrites, urine (test code = NEG NEG^NEG 5802-4) Leukocyte Esterase, urine (test NEG NEG^NEG code = 5799-2) Microscopic, Urine (test code = Microscopic examination not 654288) indicated Lab Interpretation (test code = Abnormal 30744-1) CBC WITH [id number] 19:06:48 Test Item Value Reference Range Comments WBC (test code = 6690-2) 9.08 k/uL 4.5- 11.0 k/uL RBC (test code = 789-8) 4.69 M/uL 3.8- 5.2 M/uL Hemoglobin (test code = 718-7) 14.4 g/dL 12-16 Hematocrit (calc.) (test code = 4544-3) 43.9 % 35-47 MCV (test code = 787-2) 93.6 fL 80-100 MCH (test code = 785-6) 30.7 pg 26-34 MCHC (calc.) (test code = 786-4) 32.8 g/dL 32-36 RDW (test code = 788-0) 12.2 % 11.5-14.5 Platelet (test code = 777-3) 265 k/uL 150- 440 k/uL Mean Platelet Volume (test code = 87477-8) 11.5 fL 7.4-1 0.6 Differential Type (test code = 515101) AUTOMATED Neutrophil (%) (test code = 85989-5) 81 % Lymphocyte (%) (test code = 736-9) 15 % Monocyte (%) (test code = 5905-5) 4 % Eosinophil (%) (test code = 713-8) 0 % Basophil (%) (test code = 706-2) 0 % Immature Granulocytes (%) (test code = 95142-4) 0 % Neutrophil (#) (test code = 40409-5) 7.42 k/uL 1.8- 7.7 k/ uL Lymphocyte (#) (test code = 731-0) 1.32 k/uL 1.0- 4.8 k/uL Monocyte (#) (test code = 742-7) 0.32 k/uL 0.0- 0.8 k/uL Eosinophil (#) (test code = 087186) 0.00 k/uL 0.0- 0.5 k/u L Basophil (#) (test code = 704-7) 0.01 k/uL 0.0- 0.2 k/uL Immature Granulocytes (#) (test code = 32592-8) 0.01 k/uL 0 k/uL Lab Interpretation (test code = 71985-1) Abnormal XRAY CHEST 2 [id number] 17:10:00IMPRESSION:1. No radiographic evidence of acute chest disease.2. Stable postsurgical changes involving the left lung with associated volume loss. Reading Doctor: Clement Fuentestronic Signature by: Coleen FuentesDICATION: pre-op screening Pre Op. TECHNIQUE: PA and lateral COMPARISON: 04/12/2018 FINDINGS: Postsurgical changes are redemonstrated involving the left upper lobe with associated volume loss. There is no evidence of focal consolidation. The cardiac silhouette is stable. The remaining osseous and soft tissue structures are unchanged. Interface, Radresults_Incoming - 06/22/2019 5:13 PM EDTINDICATION: pre-op screening Pre Op. TECHNIQUE: PA and lateral COMPARISON: 04/12/2018 FINDINGS: Postsurgical changes are redemonstrated involving the left upper lobe with associated volume loss. There is no evidence of focal consolidation. The cardiac silhouette is stable. The remaining osseous and soft tissue structures are unchanged. IMPRESSION IMPRESSION: 1. No radiographic evidence of acutechest disease. 2. Stable postsurgical changes involving the left lung with associated volume loss. Reading Doctor: Alfie Fuentes Electronic Signature by: Gregg Fuentes - HEMOGLOBIN W/ CPT ([id number]) 2019-06-22 00:00:00 Test Item Value Reference Range Comments Hemoglobin (test code = 835985) 14.7 g/dL 11.9-16.1 MRI OUTSIDE [id number] 10:39:09Impression: Outside images; no interpretation rendered.[id number] 11:03:00 Test Item Value Reference Range Comments WBC (test code = WBC) 6.9000 4.0000-10.0000 Lymphocytes % (test code = Lymphocytes %) 13.4000 % 22.400 0-43.6000 MID% (test code = MID%) 4.4000 % 1.2000-11.2000 Neutrophils % (test code = Neutrophils %) 82.2000 % 48.900 0-69.9000 Lymphocytes (test code = Lymphocytes) 0.9000 1.2000-3.2 000 MID (test code = MID) 0.3000 0.1000-1.1000 Neutrophils (test code = Neutrophils) 5.7000 1.5000-6.7 000 RBC (test code = RBC) 3.8000 3.7000-4.9000 HGB (test code = HGB) 12.5000 g/dL 11.2000-18.0000 HCT (test code = HCT) 36.3000 % 34.0000-44.0000 MCV (test code = MCV) 95.4000 fL 80.0000-94.0000 MCH (test code = MCH) 33.0000 pg 27.0000-34.0000 MCHC (test code = MCHC) 34.6000 g/dL 31.5000-36.0000 RDW (test code = RDW) 16.0000 11.0000-18.0000 PLT (test code = PLT) 189.0000 140.0000-440.0000 MPV (test code = MPV) 8.3000 fL 6.8000-10.6000 [id number] 11:03:00 Test Item Value Reference Range Comments Creatinine (test code = Creatinine) 0.9000 mg/dL 0.5000-1.200 0 Cr Clearance (Est) (test code = Cr 67.6600 75.0000-115.0 000 Clearance (Est)) Glucose (test code = Glucose) 160.0000 mg/dL 70.0000-118.0000 BUN (test code = BUN) 17.0000 mg/dL 7.0000-22.0000 Sodium (test code = Sodium) 136.0000 mmol/L 128.0000-145.0000 Potassium (test code = Potassium) 3.8000 mmol/L 3.6000-5.1000 Chloride (test code = Chloride) 103.0000 mmol/L 96.0000-108.0000 CO2 (test code = CO2) 26.0000 mmol/L 18.0000-33.0000 Calcium (test code = Calcium) 8.9000 mg/dL 8.0000-10.3000 Alkaline Phosphatase (test code = Alkaline 76.0000 42.00 00-141.0000 Phosphatase) ALT (SGPT) (test code = ALT (SGPT)) 31.0000 10.0000-47.0 000 AST (SGOT) (test code = AST (SGOT)) 19.0000 11.0000-37.0 000 Bilirubin, Total (test code = Bilirubin, 0.4000 mg/dL 0.0000- 1.6000 Total) Albumin (test code = Albumin) 3.6000 g/dL 3.5000-5.5000 Protein, Total (test code = Protein, 6.4000 g/dL 6.4000-8.10 00 Total) eGFR -Ivorian (test code = eGFR 78.0000 60.0000- 200.0000 -Ivorian) eGFR Pxy-Crkhaba-Spdmfmwc (test code = 65.0000 60.0000-2 00.0000 eGFR Nwa-Qpjzrqj-Jalmeyxe) MRI BRAIN W IV [id number] 07:50:11IMPRESSION: 1. Metastatic lesions as described. Reading Doctor: Eloy Shen Electronic Signature by: Eloy Shen Indication: Brain metastases for gamma knife radiation therapy treatment planning.Technique: Double dose delayed volumetric spoiled gradient-echo sequence after IV gadolinium for gamma knife preradiation treatment planning. Contrast: 12 ml Gadavist IV. Findings: Left frontal surgical cavity decreasing in size since most recent comparison exam from 06/07/2018. Peripheral enhancement around the cavity has a greatest axial dimension of about 32 mm on image 120. Ring-enhancing lesion left occipital lobe measures about 18 mm in diameter, similar to prior, but with less intense peripheral enhancement. Subtle asymmetry in enhancement involving the choroid plexus of the fourth ventricle on image 53 is unchanged from 04/12/2018. Attention to this region on future examinations suggested. Interface, Radresults_Incoming - 06/24/2018 8:10 AM EDT Indication: Brain metastases for gamma knife radiation therapy treatment planning. Technique: Double dose delayed volumetric spoiled gradient-echo sequence after IV gadolinium for gamma knife preradiation treatment planning. Contrast: 12 ml Gadavist IV. Findings: Left frontal surgical cavity decreasing in size since most recent comparison exam from 06/07/2018. Peripheral enhancement around the cavity has a greatest axial dimension of about 32 mm on image 120. Ring- enhancing lesion left occipital lobe measures about 18 mm in diameter, similar to prior, but with less intense peripheral enhancement. Subtle asymmetry in enhancement involving the choroid plexus of the fourth ventricle on image 53 is unchanged from 04/12/2018. Attention to this regionon future examinations suggested. IMPRESSION IMPRESSION: 1. Metastatic lesions as described. Reading Doctor: Eloy Shen Electronic Signature by: [facility]PROM[facility] [id number] 12:19:38IMPRESSION: 1. Left frontal surgical cavity a peripherally enhancing lesion/surgical cavity within the left frontal lobe. 2. Mildly increased left occipital lobe metastatic lesion. Reading Doctor: Yessica Luna Electronic Signature by: Yessica Luna Indication: Metastatic disease, Brain Lab stereotactic protocol. Technique: Using Brain Lab operative guidance protocol, axial imaging of the brain wasperformed using T1 SE and 3D SPGR techniques following uneventful IV administration of 12 mL of Gadavist. Comparison is made with 04/12/2018 FINDINGS: Left occipital lobe enhancing metastatic lesion is again seen measuring 1.8 x 2 cm, mildly increased in size. Left frontal craniotomy changes are again seen with enhancement along the left frontal dura and within the left frontal lobe along the surgicalcavity. This measures 4.2 cm x 3.4 cm. There is markedly improved mass effect compared with the prior MRI. Interface, Radresults_Incoming - 06/07/2018 1:06 PM EDT Indication: Metastatic disease, Brain Lab stereotactic protocol. Technique: Using Brain Lab operative guidance protocol, axial imaging of the brain was performed using T1 SE and 3D SPGR techniques following uneventful IV administration of 12 mL of Gadavist. Comparison is made with 04/12/2018 FINDINGS: Left occipital lobe enhancing metastatic lesion is again seen measuring 1.8 x 2 cm, mildly increased in size. Left frontal craniotomy changes are again seen with enhancement along the left frontal dura and within the left frontal lobe along the surgical cavity. This measures 4.2 cm x 3.4 cm. There is markedly improved mass effect compared with the prior MRI. IMPRESSION IMPRESSION: 1. Left frontal surgical cavity a peripherally enhancing lesion/surgical cavity within the left frontal lobe. 2. Mildly increased left occipital lobe metastaticlesion. Reading Doctor: Yessica Luna Electronic Signature by: Keny Luna WITH [id number] 09:46:00 Test Item Value Reference Range Comments Creatinine (test code = 2160-0) 0.77 mg/dL 0.6-1.1 GFR, non-AA, (est.) (test code = 78 mL/Min/1.73 m2 >59 71514-1) GFR, AA, (est.) (test code = 86615-4) >90 >59 mL/Min /1.73 m2 [id number] 13:54:00 Test Item Value Reference Range Comments Creatinine (test code = Creatinine) 0.9000 mg/dL 0.5000-1.200 0 Cr Clearance (Est) (test code = Cr 67.0700 75.0000-115.0 000 Clearance (Est)) Glucose (test code = Glucose) 86.0000 mg/dL 70.0000-118.0000 BUN (test code = BUN) 11.0000 mg/dL 7.0000-22.0000 Sodium (test code = Sodium) 143.0000 mmol/L 128.0000-145.0000 Potassium (test code = Potassium) 4.1000 mmol/L 3.6000-5.1000 Chloride (test code = Chloride) 105.0000 mmol/L 96.0000-108.0000 CO2 (test code = CO2) 29.0000 mmol/L 18.0000-33.0000 Calcium (test code = Calcium) 9.2800 mg/dL 8.0000-10.3000 Alkaline Phosphatase (test code = Alkaline 109.0000 42.00 00-141.0000 Phosphatase) ALT (SGPT) (test code = ALT (SGPT)) 8.0000 10.0000-47.0 000 AST (SGOT) (test code = AST (SGOT)) 12.0000 11.0000-37.0 000 Bilirubin, Total (test code = Bilirubin, 0.7000 mg/dL 0.0000- 1.6000 Total) Albumin (test code = Albumin) 4.4000 g/dL 3.5000-5.5000 Protein, Total (test code = Protein, 6.9000 g/dL 6.4000-8.10 00 Total) eGFR -Ivorian (test code = eGFR 78.0000 60.0000- 200.0000 -Ivorian) eGFR Kaf-Rpiakwt-Szjisuor (test code = 65.0000 60.0000-2 00.0000 eGFR Vks-Hjbaxbm-Qiblyfer) [id number] 13:52:00 Test Item Value Reference Range Comments WBC (test code = WBC) 3.8000 4.0000-10.0000 Lymphocytes % (test code = Lymphocytes %) 39.5000 % 22.400 0-43.6000 MID% (test code = MID%) 7.1000 % 1.2000-11.2000 Neutrophils % (test code = Neutrophils %) 53.4000 % 48.900 0-69.9000 Lymphocytes (test code = Lymphocytes) 1.5000 1.2000-3.2 000 MID (test code = MID) 0.3000 0.1000-1.1000 Neutrophils (test code = Neutrophils) 2.0000 1.5000-6.7 000 RBC (test code = RBC) 4.1200 3.7000-4.9000 HGB (test code = HGB) 13.9000 g/dL 11.2000-18.0000 HCT (test code = HCT) 37.1000 % 34.0000-44.0000 MCV (test code = MCV) 90.1000 fL 80.0000-94.0000 MCH (test code = MCH) 33.8000 pg 27.0000-34.0000 MCHC (test code = MCHC) 37.6000 g/dL 31.5000-36.0000 RDW (test code = RDW) 13.4000 11.0000-18.0000 PLT (test code = PLT) 224.0000 140.0000-440.0000 MPV (test code = MPV) 8.5000 fL 6.8000-10.6000 [id number] 13:57:00 Test Item Value Reference Range Comments Creatinine (test code = Creatinine) 1.1000 mg/dL 0.5000-1.200 0 Cr Clearance (Est) (test code = Cr 60.5400 75.0000-115.0 000 Clearance (Est)) Glucose (test code = Glucose) 99.0000 mg/dL 70.0000-118.0000 BUN (test code = BUN) 20.0000 mg/dL 7.0000-22.0000 Sodium (test code = Sodium) 142.0000 mmol/L 128.0000-145.0000 Potassium (test code = Potassium) 3.6000 mmol/L 3.6000-5.1000 Chloride (test code = Chloride) 108.0000 mmol/L 96.0000-108.0000 CO2 (test code = CO2) 27.0000 mmol/L 18.0000-33.0000 Calcium (test code = Calcium) 10.8100 mg/dL 8.0000-10.3000 Alkaline Phosphatase (test code = Alkaline 106.0000 42.00 00-141.0000 Phosphatase) ALT (SGPT) (test code = ALT (SGPT)) 14.0000 10.0000-47.0 000 AST (SGOT) (test code = AST (SGOT)) 17.0000 11.0000-37.0 000 Bilirubin, Total (test code = Bilirubin, 1.3000 mg/dL 0.0000- 1.6000 Total) Albumin (test code = Albumin) 4.7000 g/dL 3.5000-5.5000 Protein, Total (test code = Protein, 7.3000 g/dL 6.4000-8.10 00 Total) [id number] 13:56:00 Test Item Value Reference Range Comments WBC (test code = WBC) 3.4000 4.0000-10.0000 Lymphocytes % (test code = Lymphocytes %) 42.3000 % 22.400 0-43.6000 MID% (test code = MID%) 6.4000 % 1.2000-11.2000 Neutrophils % (test code = Neutrophils %) 51.3000 % 48.900 0-69.9000 Lymphocytes (test code = Lymphocytes) 1.4000 1.2000-3.2 000 MID (test code = MID) 0.3000 0.1000-1.1000 Neutrophils (test code = Neutrophils) 1.7000 1.5000-6.7 000 RBC (test code = RBC) 3.9200 3.7000-4.9000 HGB (test code = HGB) 13.3000 g/dL 11.2000-14.4000 HCT (test code = HCT) 36.7000 % 34.0000-44.0000 MCV (test code = MCV) 93.5000 fL 80.0000-94.0000 MCH (test code = MCH) 34.0000 pg 27.0000-34.0000 MCHC (test code = MCHC) 36.3000 g/dL 31.5000-36.0000 RDW (test code = RDW) 13.9000 11.0000-18.0000 PLT (test code = PLT) 192.0000 140.0000-440.0000 MPV (test code = MPV) 8.9000 fL 6.8000-10.6000 [id number] 03:09:00 Test Item Value Reference Range Comments WBC (test code = WBC) 4.6000 4.0000-10.0000 Lymphocytes % (test code = Lymphocytes %) 31.4000 % 22.400 0-43.6000 MID% (test code = MID%) 7.3000 % 1.2000-11.2000 Neutrophils % (test code = Neutrophils %) 61.3000 % 48.900 0-69.9000 Lymphocytes (test code = Lymphocytes) 1.4000 1.2000-3.2 000 MID (test code = MID) 0.4000 0.1000-1.1000 Neutrophils (test code = Neutrophils) 2.8000 1.5000-6.7 000 RBC (test code = RBC) 3.8200 3.7000-4.9000 HGB (test code = HGB) 12.4000 g/dL 11.2000-14.4000 HCT (test code = HCT) 36.0000 % 34.0000-44.0000 MCV (test code = MCV) 94.3000 fL 80.0000-94.0000 MCH (test code = MCH) 32.5000 pg 27.0000-34.0000 MCHC (test code = MCHC) 34.5000 g/dL 31.5000-36.0000 RDW (test code = RDW) 13.8000 11.0000-18.0000 PLT (test code = PLT) 202.0000 140.0000-440.0000 MPV (test code = MPV) 8.5000 fL 6.8000-10.6000 [id number] 03:00:00 Test Item Value Reference Range Comments Creatinine (test code = Creatinine) 0.9000 mg/dL 0.5000-1.200 0 Cr Clearance (Est) (test code = Cr 73.3800 75.0000-115.0 000 Clearance (Est)) Glucose (test code = Glucose) 110.0000 mg/dL 70.0000-118.0000 BUN (test code = BUN) 18.0000 mg/dL 7.0000-22.0000 Sodium (test code = Sodium) 142.0000 mmol/L 128.0000-145.0000 Potassium (test code = Potassium) 3.7000 mmol/L 3.6000-5.1000 Chloride (test code = Chloride) 105.0000 mmol/L 96.0000-108.0000 CO2 (test code = CO2) 27.0000 mmol/L 18.0000-33.0000 Calcium (test code = Calcium) 9.0600 mg/dL 8.0000-10.3000 Alkaline Phosphatase (test code = Alkaline 102.0000 42.00 00-141.0000 Phosphatase) ALT (SGPT) (test code = ALT (SGPT)) 11.0000 10.0000-47.0 000 AST (SGOT) (test code = AST (SGOT)) 14.0000 11.0000-37.0 000 Bilirubin, Total (test code = Bilirubin, 0.4000 mg/dL 0.0000- 1.6000 Total) Albumin (test code = Albumin) 4.4000 g/dL 3.5000-5.5000 Protein, Total (test code = Protein, 6.7000 g/dL 6.4000-8.10 00 Total) eGFR -Ivorian (test code = eGFR 84.0000 60.0000- 125.0000 -Ivorian) eGFR Quv-Kaksowf-Conkhzqv (test code = 70.0000 60.0000-1 25.0000 eGFR Zxl-Hbipasg-Rurhryai) [id number] 04:00:00 Test Item Value Reference Range Comments WBC (test code = WBC) 4.4000 4.2000-10.0000 Lymphocytes % (test code = Lymphocytes %) 49.2000 % 22.400 0-43.6000 MID% (test code = MID%) 7.5000 % 1.2000-11.2000 Neutrophils % (test code = Neutrophils %) 43.3000 % 48.900 0-69.9000 Lymphocytes (test code = Lymphocytes) 2.2000 1.2000-3.2 000 MID (test code = MID) 0.3000 0.1000-1.1000 Neutrophils (test code = Neutrophils) 1.9000 1.5000-6.7 000 RBC (test code = RBC) 4.1000 4.5000-6.3000 HGB (test code = HGB) 13.1000 g/dL 14.0000-18.0000 HCT (test code = HCT) 39.7000 % 41.0000-51.0000 MCV (test code = MCV) 96.9000 fL 80.0000-94.0000 MCH (test code = MCH) 32.0000 pg 27.0000-34.0000 MCHC (test code = MCHC) 33.0000 g/dL 31.5000-36.0000 RDW (test code = RDW) 13.5000 11.0000-18.0000 PLT (test code = PLT) 109.0000 140.0000-440.0000 MPV (test code = MPV) 9.2000 fL 6.8000-10.6000 [id number] 14:17:00 Test Item Value Reference Range Comments Creatinine (test code = Creatinine) 0.8400 mg/dL 0.5700-1.000 0 Cr Clearance (Est) (test code = Cr 78.4300 75.0000-115.0 000 Clearance (Est)) Glucose (test code = Glucose) 91.0000 mg/dL 65.0000-99.0000 BUN (test code = BUN) 12.0000 mg/dL 6.0000-24.0000 eGFR Wka-Aqgvcxr-Pkenigzj (test code = 80.0000 eGFR Abc-Ooypamh-Rbqyusox) eGFR -Ivorian (test code = eGFR 92.0000 -Ivorian) BUN/Creat Ratio (test code = BUN/Creat 14.0000 9.0000-23 .0000 Ratio) Sodium (test code = Sodium) 146.0000 mmol/L 134.0000-144.0000 Potassium (test code = Potassium) 4.5000 mmol/L 3.5000-5.2000 Chloride (test code = Chloride) 107.0000 mmol/L 97.0000-108.0000 CO2 (test code = CO2) 25.0000 mmol/L 19.0000-28.0000 Calcium (test code = Calcium) 9.8000 mg/dL 8.7000-10.2000 Protein, Total (test code = Protein, 6.6000 g/dL 6.0000-8.50 00 Total) Albumin (test code = Albumin) 4.0000 g/dL 3.5000-5.5000 Globulin (test code = Globulin) 2.6000 g/dL 1.5000-4.5000 A/G Ratio (test code = A/G Ratio) 1.5000 1.1000-2.5000 Bilirubin, Total (test code = Bilirubin, 0.2000 mg/dL 0.0000- 1.2000 Total) Alkaline Phosphatase (test code = Alkaline 107.0000 39.00 00-117.0000 Phosphatase) AST (SGOT) (test code = AST (SGOT)) 19.0000 0.0000-40.00 00 ALT (SGPT) (test code = ALT (SGPT)) 13.0000 0.0000-32.00 00 [id number] 02:07:00 Test Item Value Reference Range Comments WBC (test code = WBC) 3.6000 4.2000-10.0000 Lymphocytes % (test code = Lymphocytes %) 41.8000 % 22.400 0-43.6000 MID% (test code = MID%) 8.4000 % 1.2000-11.2000 Neutrophils % (test code = Neutrophils %) 49.8000 % 48.900 0-69.9000 Lymphocytes (test code = Lymphocytes) 1.5000 1.2000-3.2 000 MID (test code = MID) 0.3000 0.1000-1.1000 Neutrophils (test code = Neutrophils) 1.8000 1.5000-6.7 000 RBC (test code = RBC) 3.8400 4.5000-6.3000 HGB (test code = HGB) 12.5000 g/dL 14.0000-18.0000 HCT (test code = HCT) 36.2000 % 41.0000-51.0000 MCV (test code = MCV) 94.3000 fL 80.0000-94.0000 MCH (test code = MCH) 32.7000 pg 27.0000-34.0000 MCHC (test code = MCHC) 34.7000 g/dL 31.5000-36.0000 RDW (test code = RDW) 15.7000 11.0000-18.0000 PLT (test code = PLT) 266.0000 140.0000-440.0000 MPV (test code = MPV) 8.0000 fL 6.8000-10.6000 [id number] 14:34:00 Test Item Value Reference Range Comments Creatinine (test code = Creatinine) 0.9500 mg/dL 0.5700-1.000 0 Cr Clearance (Est) (test code = Cr 66.9700 75.0000-115.0 000 Clearance (Est)) Glucose (test code = Glucose) 90.0000 mg/dL 65.0000-99.0000 BUN (test code = BUN) 18.0000 mg/dL 6.0000-24.0000 eGFR Ceb-Lrtjdhb-Xjyfnjts (test code = 69.0000 eGFR Wtq-Rydlktj-Npbndrmu) eGFR -Ivorian (test code = eGFR 80.0000 -Ivorian) BUN/Creat Ratio (test code = BUN/Creat 19.0000 9.0000-23 .0000 Ratio) Sodium (test code = Sodium) 143.0000 mmol/L 134.0000-144.0000 Potassium (test code = Potassium) 3.9000 mmol/L 3.5000-5.2000 Chloride (test code = Chloride) 106.0000 mmol/L 97.0000-108.0000 CO2 (test code = CO2) 26.0000 mmol/L 19.0000-28.0000 Calcium (test code = Calcium) 9.4000 mg/dL 8.7000-10.2000 Protein, Total (test code = Protein, 6.6000 g/dL 6.0000-8.50 00 Total) Albumin (test code = Albumin) 4.2000 g/dL 3.5000-5.5000 Globulin (test code = Globulin) 2.4000 g/dL 1.5000-4.5000 A/G Ratio (test code = A/G Ratio) 1.8000 1.1000-2.5000 Bilirubin, Total (test code = Bilirubin, 0.2000 mg/dL 0.0000- 1.2000 Total) Alkaline Phosphatase (test code = Alkaline 97.0000 39.00 00-117.0000 Phosphatase) AST (SGOT) (test code = AST (SGOT)) 15.0000 0.0000-40.00 00 ALT (SGPT) (test code = ALT (SGPT)) 13.0000 0.0000-32.00 00 [id number] 02:03:00 Test Item Value Reference Range Comments WBC (test code = WBC) 4.9000 4.2000-10.0000 Lymphocytes % (test code = Lymphocytes %) 35.6000 % 22.400 0-43.6000 MID% (test code = MID%) 7.8000 % 1.2000-11.2000 Neutrophils % (test code = Neutrophils %) 56.6000 % 48.900 0-69.9000 Lymphocytes (test code = Lymphocytes) 1.7000 1.2000-3.2 000 MID (test code = MID) 0.4000 0.1000-1.1000 Neutrophils (test code = Neutrophils) 2.8000 1.5000-6.7 000 RBC (test code = RBC) 3.9800 4.5000-6.3000 HGB (test code = HGB) 12.7000 g/dL 14.0000-18.0000 HCT (test code = HCT) 37.5000 % 41.0000-51.0000 MCV (test code = MCV) 94.0000 fL 80.0000-94.0000 MCH (test code = MCH) 31.8000 pg 27.0000-34.0000 MCHC (test code = MCHC) 33.9000 g/dL 31.5000-36.0000 RDW (test code = RDW) 15.7000 11.0000-18.0000 PLT (test code = PLT) 220.0000 140.0000-440.0000 MPV (test code = MPV) 8.1000 fL 6.8000-10.6000 [id number] 14:32:00 Test Item Value Reference Range Comments Creatinine (test code = Creatinine) 0.9800 mg/dL 0.5700-1.000 0 Cr Clearance (Est) (test code = Cr 64.9200 75.0000-115.0 000 Clearance (Est)) Glucose (test code = Glucose) 83.0000 mg/dL 65.0000-99.0000 BUN (test code = BUN) 15.0000 mg/dL 6.0000-24.0000 eGFR Foz-Qtivttl-Idiitymu (test code = 67.0000 eGFR Rnc-Ejiqmxz-Pibndqaw) eGFR -Ivorian (test code = eGFR 77.0000 -Ivorian) BUN/Creat Ratio (test code = BUN/Creat 15.0000 9.0000-23 .0000 Ratio) Sodium (test code = Sodium) 143.0000 mmol/L 134.0000-144.0000 Potassium (test code = Potassium) 4.3000 mmol/L 3.5000-5.2000 Chloride (test code = Chloride) 104.0000 mmol/L 97.0000-108.0000 CO2 (test code = CO2) 24.0000 mmol/L 19.0000-28.0000 Calcium (test code = Calcium) 9.9000 mg/dL 8.7000-10.2000 Protein, Total (test code = Protein, 7.3000 g/dL 6.0000-8.50 00 Total) Albumin (test code = Albumin) 4.4000 g/dL 3.5000-5.5000 Globulin (test code = Globulin) 2.9000 g/dL 1.5000-4.5000 A/G Ratio (test code = A/G Ratio) 1.5000 1.1000-2.5000 Bilirubin, Total (test code = Bilirubin, 0.4000 mg/dL 0.0000- 1.2000 Total) Alkaline Phosphatase (test code = Alkaline 92.0000 39.00 00-117.0000 Phosphatase) AST (SGOT) (test code = AST (SGOT)) 18.0000 0.0000-40.00 00 ALT (SGPT) (test code = ALT (SGPT)) 15.0000 0.0000-32.00 00 [id number] 02:09:00 Test Item Value Reference Range Comments WBC (test code = WBC) 4.2000 4.2000-10.0000 Lymphocytes % (test code = Lymphocytes %) 38.5000 % 22.400 0-43.6000 MID% (test code = MID%) 8.1000 % 1.2000-11.2000 Neutrophils % (test code = Neutrophils %) 53.4000 % 48.900 0-69.9000 Lymphocytes (test code = Lymphocytes) 1.6000 1.2000-3.2 000 MID (test code = MID) 0.4000 0.1000-1.1000 Neutrophils (test code = Neutrophils) 2.2000 1.5000-6.7 000 RBC (test code = RBC) 3.8600 4.5000-6.3000 HGB (test code = HGB) 12.8000 g/dL 14.0000-18.0000 HCT (test code = HCT) 36.0000 % 41.0000-51.0000 MCV (test code = MCV) 93.2000 fL 80.0000-94.0000 MCH (test code = MCH) 33.2000 pg 27.0000-34.0000 MCHC (test code = MCHC) 35.6000 g/dL 31.5000-36.0000 RDW (test code = RDW) 16.0000 11.0000-18.0000 PLT (test code = PLT) 248.0000 140.0000-440.0000 MPV (test code = MPV) 7.5000 fL 6.8000-10.6000 [id number] 15:08:00 Test Item Value Reference Range Comments Creatinine (test code = Creatinine) 1.1400 mg/dL 0.5700-1.000 0 Cr Clearance (Est) (test code = Cr 57.2900 75.0000-115.0 000 Clearance (Est)) Glucose (test code = Glucose) 97.0000 mg/dL 65.0000-99.0000 BUN (test code = BUN) 19.0000 mg/dL 6.0000-24.0000 eGFR Xps-Tftjtff-Lcnypdts (test code = 55.0000 eGFR Rfk-Kjxnozt-Xajywqdj) eGFR -Ivorian (test code = eGFR 64.0000 -Ivorian) BUN/Creat Ratio (test code = BUN/Creat 17.0000 9.0000-23 .0000 Ratio) Sodium (test code = Sodium) 143.0000 mmol/L 134.0000-144.0000 Potassium (test code = Potassium) 4.0000 mmol/L 3.5000-5.2000 Chloride (test code = Chloride) 105.0000 mmol/L 97.0000-108.0000 CO2 (test code = CO2) 25.0000 mmol/L 19.0000-28.0000 Calcium (test code = Calcium) 10.1000 mg/dL 8.7000-10.2000 Protein, Total (test code = Protein, 7.4000 g/dL 6.0000-8.50 00 Total) Albumin (test code = Albumin) 4.1000 g/dL 3.5000-5.5000 Globulin (test code = Globulin) 3.3000 g/dL 1.5000-4.5000 A/G Ratio (test code = A/G Ratio) 1.2000 1.1000-2.5000 Bilirubin, Total (test code = Bilirubin, 0.2000 mg/dL 0.0000- 1.2000 Total) Alkaline Phosphatase (test code = Alkaline 105.0000 39.00 00-117.0000 Phosphatase) AST (SGOT) (test code = AST (SGOT)) 18.0000 0.0000-40.00 00 ALT (SGPT) (test code = ALT (SGPT)) 12.0000 0.0000-32.00 00 [id number] 02:00:00 Test Item Value Reference Range Comments WBC (test code = WBC) 6.6000 4.2000-10.0000 Lymphocytes % (test code = Lymphocytes %) 21.5000 % 22.400 0-43.6000 MID% (test code = MID%) 6.5000 % 1.2000-11.1999 Neutrophils % (test code = Neutrophils %) 72.0000 % 48.900 0-69.9000 Lymphocytes (test code = Lymphocytes) 1.4000 1.2000-3.2 000 MID (test code = MID) 0.5000 0.1000-1.1000 Neutrophils (test code = Neutrophils) 4.7000 1.5000-6.7 000 RBC (test code = RBC) 3.6000 4.5000-6.3000 HGB (test code = HGB) 10.7000 g/dL 14.0000-18.0000 HCT (test code = HCT) 32.5000 % 41.0000-51.0000 MCV (test code = MCV) 90.4000 fL 80.0000-94.0000 MCH (test code = MCH) 29.7000 pg 27.0000-34.0000 MCHC (test code = MCHC) 32.9000 g/dL 31.5000-36.0000 RDW (test code = RDW) 15.9000 11.0000-14.6000 PLT (test code = PLT) 319.0000 140.0000-440.0000 MPV (test code = MPV) 6.7000 fL 6.8000-10.6000 [id number] 03:02:00 Test Item Value Reference Range Comments WBC (test code = WBC) 4.1000 4.2000-10.0000 Lymphocytes % (test code = Lymphocytes %) 27.6000 % 22.400 0-43.6000 MID% (test code = MID%) 6.9000 % 1.2000-11.2000 Neutrophils % (test code = Neutrophils %) 65.5000 % 48.900 0-69.9000 Lymphocytes (test code = Lymphocytes) 1.1000 1.2000-3.2 000 MID (test code = MID) 0.3000 0.1000-1.1000 Neutrophils (test code = Neutrophils) 2.7000 1.5000-6.7 000 RBC (test code = RBC) 3.6900 4.5000-6.3000 HGB (test code = HGB) 12.2000 g/dL 14.0000-18.0000 HCT (test code = HCT) 35.7000 % 41.0000-51.0000 MCV (test code = MCV) 96.6000 fL 80.0000-94.0000 MCH (test code = MCH) 33.1000 pg 27.0000-34.0000 MCHC (test code = MCHC) 34.3000 g/dL 31.5000-36.0000 RDW (test code = RDW) 15.5000 11.0000-14.6000 PLT (test code = PLT) 215.0000 140.0000-440.0000 MPV (test code = MPV) 7.5000 fL 6.8000-10.6000 [id number] 13:44:00 Test Item Value Reference Range Comments Creatinine (test code = Creatinine) 0.7500 mg/dL 0.5700-1.000 0 Cr Clearance (Est) (test code = Cr 87.0600 75.0000-115.0 000 Clearance (Est)) Glucose (test code = Glucose) 78.0000 mg/dL 65.0000-99.0000 BUN (test code = BUN) 13.0000 mg/dL 6.0000-24.0000 eGFR Bzb-Kiloxrv-Psmtvmdb (test code = 93.0000 eGFR Trq-Uhanfht-Taghoufv) eGFR -Ivorian (test code = eGFR 107.0000 -Ivorian) BUN/Creat Ratio (test code = BUN/Creat 17.0000 9.0000-23 .0000 Ratio) Sodium (test code = Sodium) 140.0000 mmol/L 134.0000-144.0000 Potassium (test code = Potassium) 3.4000 mmol/L 3.5000-5.2000 Chloride (test code = Chloride) 105.0000 mmol/L 97.0000-108.0000 CO2 (test code = CO2) 22.0000 mmol/L 19.0000-28.0000 Calcium (test code = Calcium) 9.3000 mg/dL 8.7000-10.2000 Protein, Total (test code = Protein, 6.9000 g/dL 6.0000-8.50 00 Total) Albumin (test code = Albumin) 4.1000 g/dL 3.5000-5.5000 Globulin (test code = Globulin) 2.8000 g/dL 1.5000-4.5000 A/G Ratio (test code = A/G Ratio) 1.5000 1.1000-2.5000 Bilirubin, Total (test code = Bilirubin, 0.3000 mg/dL 0.0000- 1.2000 Total) Alkaline Phosphatase (test code = Alkaline 111.0000 25.00 00-150.0000 Phosphatase) AST (SGOT) (test code = AST (SGOT)) 18.0000 0.0000-40.00 00 ALT (SGPT) (test code = ALT (SGPT)) 16.0000 0.0000-32.00 00 [id number] 02:00:00 Test Item Value Reference Range Comments WBC (test code = WBC) 3.9000 4.2000-10.0000 Lymphocytes % (test code = Lymphocytes %) 23.8000 % 22.400 0-43.6000 MID% (test code = MID%) 7.9000 % 1.2000-11.2000 Neutrophils % (test code = Neutrophils %) 68.3000 % 48.900 0-69.9000 Lymphocytes (test code = Lymphocytes) 0.9000 1.2000-3.2 000 MID (test code = MID) 0.3000 0.1000-1.1000 Neutrophils (test code = Neutrophils) 2.7000 1.5000-6.7 000 RBC (test code = RBC) 3.2300 4.5000-6.3000 HGB (test code = HGB) 11.5000 g/dL 14.0000-18.0000 HCT (test code = HCT) 33.8000 % 41.0000-51.0000 MCV (test code = MCV) 104.5000 fL 80.0000-94.0000 MCH (test code = MCH) 35.8000 pg 27.0000-34.0000 MCHC (test code = MCHC) 34.2000 g/dL 31.5000-36.0000 RDW (test code = RDW) 15.9000 11.0000-14.6000 PLT (test code = PLT) 279.0000 140.0000-440.0000 MPV (test code = MPV) 7.4000 fL 6.8000-10.6000 [id number] 01:07:00 Test Item Value Reference Range Comments Glucose (test code = Glucose) 106.0000 mg/dL 70.0000-118.0000 Cr Clearance (Est) (test code = Cr 71.9100 75.0000-115.0 000 Clearance (Est)) Sodium (test code = Sodium) 143.0000 mmol/L 128.0000-145.0000 Potassium (test code = Potassium) 4.2000 mmol/L 3.6000-5.1000 Chloride (test code = Chloride) 103.0000 mmol/L 96.0000-108.0000 CO2 (test code = CO2) 28.0000 mmol/L 18.0000-33.0000 Calcium (test code = Calcium) 9.1000 mg/dL 8.0000-10.3000 BUN (test code = BUN) 12.0000 mg/dL 7.0000-22.0000 Creatinine (test code = Creatinine) 0.9000 mg/dL 0.5000-1.200 0 Alkaline Phosphatase (test code = Alkaline 132.0000 42.00 00-141.0000 Phosphatase) ALT (SGPT) (test code = ALT (SGPT)) 48.0000 10.0000-47.0 000 AST (SGOT) (test code = AST (SGOT)) 33.0000 11.0000-37.0 000 Bilirubin, Total (test code = Bilirubin, 0.8000 mg/dL 0.0000- 1.6000 Total) Albumin (test code = Albumin) 3.8000 g/dL 3.5000-5.5000 Protein, Total (test code = Protein, 7.8000 g/dL 6.4000-8.10 00 Total) [id number] 01:06:00 Test Item Value Reference Range Comments WBC (test code = WBC) 5.6000 4.2000-10.0000 Lymphocytes % (test code = Lymphocytes %) 8.2000 % 22.400 0-43.6000 MID% (test code = MID%) 2.6000 % 1.2000-11.2000 Neutrophils % (test code = Neutrophils %) 89.2000 % 48.900 0-69.9000 Lymphocytes (test code = Lymphocytes) 0.4000 1.2000-3.2 000 MID (test code = MID) 0.2000 0.1000-1.1000 Neutrophils (test code = Neutrophils) 5.0000 1.5000-6.7 000 RBC (test code = RBC) 2.7600 4.5000-6.3000 HGB (test code = HGB) 10.0000 g/dL 14.0000-18.0000 HCT (test code = HCT) 28.2000 % 41.0000-51.0000 MCV (test code = MCV) 102.1000 fL 80.0000-94.0000 MCH (test code = MCH) 36.2000 pg 27.0000-34.0000 MCHC (test code = MCHC) 35.4000 g/dL 31.5000-36.0000 RDW (test code = RDW) 18.2000 11.0000-14.6000 PLT (test code = PLT) 159.0000 140.0000-440.0000 MPV (test code = MPV) 7.4000 fL 6.8000-10.6000 [id number] 01:00:00 Test Item Value Reference Range Comments WBC (test code = WBC) 6.4000 4.2000-10.0000 Lymphocytes % (test code = Lymphocytes %) 15.4000 % 22.400 0-43.6000 MID% (test code = MID%) 5.5000 % 1.2000-11.2000 Neutrophils % (test code = Neutrophils %) 79.1000 % 48.900 0-69.9000 Lymphocytes (test code = Lymphocytes) 0.9000 1.2000-3.2 000 MID (test code = MID) 0.5000 0.1000-1.1000 Neutrophils (test code = Neutrophils) 5.0000 1.5000-6.7 000 RBC (test code = RBC) 2.5200 4.5000-6.3000 HGB (test code = HGB) 8.9000 g/dL 14.0000-18.0000 HCT (test code = HCT) 25.6000 % 41.0000-51.0000 MCV (test code = MCV) 101.7000 fL 80.0000-94.0000 MCH (test code = MCH) 35.4000 pg 27.0000-34.0000 MCHC (test code = MCHC) 34.8000 g/dL 31.5000-36.0000 RDW (test code = RDW) 18.4000 11.0000-14.6000 PLT (test code = PLT) 100.0000 140.0000-440.0000 MPV (test code = MPV) 8.3000 fL 6.8000-10.6000 [id number] 02:00:00 Test Item Value Reference Range Comments WBC (test code = WBC) 14.0000 4.2000-10.0000 RBC (test code = RBC) 2.7400 4.5000-6.3000 HGB (test code = HGB) 9.6000 g/dL 14.0000-18.0000 HCT (test code = HCT) 27.7000 % 41.0000-51.0000 MCV (test code = MCV) 101.2000 fL 80.0000-94.0000 MCH (test code = MCH) 35.0000 pg 27.0000-34.0000 MCHC (test code = MCHC) 34.6000 g/dL 31.5000-36.0000 RDW (test code = RDW) 18.4000 11.0000-14.6000 PLT (test code = PLT) 184.0000 140.0000-440.0000 MPV (test code = MPV) 7.3000 fL 6.8000-10.6000 Neutrophils (test code = Neutrophils) 12.2000 1.5000-6.7 000 Lymphocytes (test code = Lymphocytes) 1.3000 1.2000-3.2 000 MID (test code = MID) 0.5000 0.1000-1.1000 Neutrophils % (test code = Neutrophils %) 86.6000 % 48.900 0-69.9000 Lymphocytes % (test code = Lymphocytes %) 9.3000 % 22.400 0-43.6000 MID% (test code = MID%) 4.1000 % 1.2000-11.1999 [id number] 11:41:00 Test Item Value Reference Range Comments Glucose (test code = Glucose) 123.0000 mg/dL 70.0000-118.0000 Cr Clearance (Est) (test code = Cr 71.7000 75.0000-115.0 000 Clearance (Est)) Sodium (test code = Sodium) 141.0000 mmol/L 128.0000-145.0000 Potassium (test code = Potassium) 4.1000 mmol/L 3.6000-5.1000 Chloride (test code = Chloride) 106.0000 mmol/L 96.0000-108.0000 CO2 (test code = CO2) 25.0000 mmol/L 18.0000-33.0000 Calcium (test code = Calcium) 9.1000 mg/dL 8.0000-10.3000 BUN (test code = BUN) 13.0000 mg/dL 7.0000-22.0000 Creatinine (test code = Creatinine) 0.9000 mg/dL 0.5000-1.200 0 Alkaline Phosphatase (test code = Alkaline 113.0000 42.00 00-141.0000 Phosphatase) ALT (SGPT) (test code = ALT (SGPT)) 24.0000 10.0000-47.0 000 AST (SGOT) (test code = AST (SGOT)) 21.0000 11.0000-37.0 000 Bilirubin, Total (test code = Bilirubin, 0.8000 mg/dL 0.0000- 1.6000 Total) Albumin (test code = Albumin) 3.9000 g/dL 3.5000-5.5000 Protein, Total (test code = Protein, 7.8000 g/dL 6.4000-8.10 00 Total) [id number] 11:29:00 Test Item Value Reference Range Comments WBC (test code = WBC) 7.8000 4.2000-10.0000 Lymphocytes % (test code = Lymphocytes %) 8.8000 % 22.400 0-43.6000 MID% (test code = MID%) 3.8000 % 1.2000-11.1999 Neutrophils % (test code = Neutrophils %) 87.4000 % 48.900 0-69.9000 Lymphocytes (test code = Lymphocytes) 0.7000 1.2000-3.2 000 MID (test code = MID) 0.3000 0.1000-1.1000 Neutrophils (test code = Neutrophils) 6.8000 1.5000-6.7 000 RBC (test code = RBC) 3.2000 4.5000-6.3000 HGB (test code = HGB) 10.5000 g/dL 14.0000-18.0000 HCT (test code = HCT) 31.4000 % 41.0000-51.0000 MCV (test code = MCV) 97.9000 fL 80.0000-94.0000 MCH (test code = MCH) 32.7000 pg 27.0000-34.0000 MCHC (test code = MCHC) 33.4000 g/dL 31.5000-36.0000 RDW (test code = RDW) 18.6000 11.0000-14.6000 PLT (test code = PLT) 300.0000 140.0000-440.0000 MPV (test code = MPV) 6.9000 fL 6.8000-10.6000 [id number] 02:08:00 Test Item Value Reference Range Comments WBC (test code = WBC) 6.9000 4.2000-10.0000 Lymphocytes % (test code = Lymphocytes %) 16.1000 % 22.400 0-43.6000 MID% (test code = MID%) 6.6000 % 1.2000-11.1999 Neutrophils % (test code = Neutrophils %) 77.3000 % 48.900 0-69.9000 Lymphocytes (test code = Lymphocytes) 1.1000 1.2000-3.2 000 MID (test code = MID) 0.5000 0.1000-1.1000 Neutrophils (test code = Neutrophils) 5.3000 1.5000-6.7 000 RBC (test code = RBC) 2.9100 4.5000-6.3000 HGB (test code = HGB) 9.9000 g/dL 14.0000-18.0000 HCT (test code = HCT) 27.9000 % 41.0000-51.0000 MCV (test code = MCV) 95.9000 fL 80.0000-94.0000 MCH (test code = MCH) 34.1000 pg 27.0000-34.0000 MCHC (test code = MCHC) 35.5000 g/dL 31.5000-36.0000 RDW (test code = RDW) 18.1000 11.0000-14.6000 PLT (test code = PLT) 123.0000 140.0000-440.0000 MPV (test code = MPV) 8.3000 fL 6.8000-10.6000 [id number] 12:35:00 Test Item Value Reference Range Comments WBC (test code = WBC) 11.8000 4.2000-10.0000 Lymphocytes % (test code = Lymphocytes %) 10.0000 % 22.400 0-43.6000 MID% (test code = MID%) 3.8000 % 1.2000-11.2000 Neutrophils % (test code = Neutrophils %) 86.2000 % 48.900 0-69.9000 Lymphocytes (test code = Lymphocytes) 1.1000 1.2000-3.2 000 MID (test code = MID) 0.6000 0.1000-1.1000 Neutrophils (test code = Neutrophils) 10.1000 1.5000-6.7 000 RBC (test code = RBC) 3.3100 4.5000-6.3000 HGB (test code = HGB) 11.1000 g/dL 14.0000-18.0000 HCT (test code = HCT) 31.6000 % 41.0000-51.0000 MCV (test code = MCV) 95.3000 fL 80.0000-94.0000 MCH (test code = MCH) 33.6000 pg 27.0000-34.0000 MCHC (test code = MCHC) 35.2000 g/dL 31.5000-36.0000 RDW (test code = RDW) 18.0000 11.0000-14.6000 PLT (test code = PLT) 180.0000 140.0000-440.0000 MPV (test code = MPV) 8.1000 fL 6.8000-10.6000 [id number] 10:18:00 Test Item Value Reference Range Comments WBC (test code = WBC) 5.9000 4.2000-10.0000 Lymphocytes % (test code = Lymphocytes %) 27.4000 % 22.400 0-43.6000 MID% (test code = MID%) 6.6000 % 1.2000-11.2000 Neutrophils % (test code = Neutrophils %) 66.0000 % 48.900 0-69.9000 Lymphocytes (test code = Lymphocytes) 1.6000 1.2000-3.2 000 MID (test code = MID) 0.4000 0.1000-1.1000 Neutrophils (test code = Neutrophils) 3.9000 1.5000-6.7 000 RBC (test code = RBC) 3.5400 4.5000-6.3000 HGB (test code = HGB) 11.4000 g/dL 14.0000-18.0000 HCT (test code = HCT) 34.1000 % 41.0000-51.0000 MCV (test code = MCV) 96.3000 fL 80.0000-94.0000 MCH (test code = MCH) 32.2000 pg 27.0000-34.0000 MCHC (test code = MCHC) 33.5000 g/dL 31.5000-36.0000 RDW (test code = RDW) 19.3000 11.0000-14.6000 PLT (test code = PLT) 99.0000 140.0000-440.0000 MPV (test code = MPV) 7.9000 fL 6.8000-10.6000 [id number] 10:18:00 Test Item Value Reference Range Comments Glucose (test code = Glucose) 97.0000 mg/dL 70.0000-118.0000 Cr Clearance (Est) (test code = Cr 107.5500 75.0000-115.0 000 Clearance (Est)) Sodium (test code = Sodium) 137.0000 mmol/L 128.0000-145.0000 Potassium (test code = Potassium) 4.3000 mmol/L 3.6000-5.1000 Chloride (test code = Chloride) 106.0000 mmol/L 96.0000-108.0000 CO2 (test code = CO2) 23.0000 mmol/L 18.0000-33.0000 Calcium (test code = Calcium) 8.6000 mg/dL 8.0000-10.3000 BUN (test code = BUN) 13.0000 mg/dL 7.0000-22.0000 Creatinine (test code = Creatinine) 0.6000 mg/dL 0.5000-1.200 0 Alkaline Phosphatase (test code = Alkaline 108.0000 42.00 00-141.0000 Phosphatase) ALT (SGPT) (test code = ALT (SGPT)) 31.0000 10.0000-47.0 000 AST (SGOT) (test code = AST (SGOT)) 26.0000 11.0000-37.0 000 Bilirubin, Total (test code = Bilirubin, 0.5000 mg/dL 0.0000- 1.6000 Total) Albumin (test code = Albumin) 3.7000 g/dL 3.5000-5.5000 Protein, Total (test code = Protein, 7.2000 g/dL 6.4000-8.10 00 Total) [id number] 02:02:00 Test Item Value Reference Range Comments WBC (test code = WBC) 6.8000 4.2000-10.0000 Lymphocytes % (test code = Lymphocytes %) 16.6000 % 22.400 0-43.6000 MID% (test code = MID%) 5.5000 % 1.2000-11.2000 Neutrophils % (test code = Neutrophils %) 77.9000 % 48.900 0-69.9000 Lymphocytes (test code = Lymphocytes) 1.1000 1.2000-3.2 000 MID (test code = MID) 0.4000 0.1000-1.1000 Neutrophils (test code = Neutrophils) 5.3000 1.5000-6.7 000 RBC (test code = RBC) 3.4100 4.5000-6.3000 HGB (test code = HGB) 11.3000 g/dL 14.0000-18.0000 HCT (test code = HCT) 32.1000 % 41.0000-51.0000 MCV (test code = MCV) 94.0000 fL 80.0000-94.0000 MCH (test code = MCH) 33.2000 pg 27.0000-34.0000 MCHC (test code = MCHC) 35.3000 g/dL 31.5000-36.0000 RDW (test code = RDW) 17.7000 11.0000-14.6000 PLT (test code = PLT) 106.0000 140.0000-440.0000 MPV (test code = MPV) 7.9000 fL 6.8000-10.6000 [id number] 12:40:00 Test Item Value Reference Range Comments WBC (test code = WBC) 8.5000 4.2000-10.0000 Lymphocytes % (test code = Lymphocytes %) 11.8000 % 22.400 0-43.6000 MID% (test code = MID%) 3.9000 % 1.2000-11.2000 Neutrophils % (test code = Neutrophils %) 84.3000 % 48.900 0-69.9000 Lymphocytes (test code = Lymphocytes) 1.0000 1.2000-3.2 000 MID (test code = MID) 0.3000 0.1000-1.1000 Neutrophils (test code = Neutrophils) 7.2000 1.5000-6.7 000 RBC (test code = RBC) 3.6200 4.5000-6.3000 HGB (test code = HGB) 11.6000 g/dL 14.0000-18.0000 HCT (test code = HCT) 34.4000 % 41.0000-51.0000 MCV (test code = MCV) 94.9000 fL 80.0000-94.0000 MCH (test code = MCH) 32.0000 pg 27.0000-34.0000 MCHC (test code = MCHC) 33.7000 g/dL 31.5000-36.0000 RDW (test code = RDW) 17.9000 11.0000-14.6000 PLT (test code = PLT) 104.0000 140.0000-440.0000 MPV (test code = MPV) 8.3000 fL 6.8000-10.6000 [id number] 11:08:00 Test Item Value Reference Range Comments Creatinine (test code = Creatinine) 0.6700 mg/dL 0.5700-1.000 0 Cr Clearance (Est) (test code = Cr 96.6000 75.0000-115.0 000 Clearance (Est)) Glucose (test code = Glucose) 156.0000 mg/dL 65.0000-99.0000 BUN (test code = BUN) 13.0000 mg/dL 6.0000-24.0000 eGFR Tzc-Qhcfixs-Vjaeldik (test code = 102.0000 eGFR Wnu-Qmrbnmx-Bvqfyccg) eGFR -Ivorian (test code = eGFR 118.0000 -Ivorian) BUN/Creat Ratio (test code = BUN/Creat 19.0000 9.0000-23 .0000 Ratio) Sodium (test code = Sodium) 137.0000 mmol/L 134.0000-144.0000 Potassium (test code = Potassium) 3.4000 mmol/L 3.5000-5.2000 Chloride (test code = Chloride) 107.0000 mmol/L 97.0000-108.0000 CO2 (test code = CO2) 19.0000 mmol/L 20.0000-32.0000 Calcium (test code = Calcium) 9.4000 mg/dL 8.7000-10.2000 Protein, Total (test code = Protein, 7.2000 g/dL 6.0000-8.50 00 Total) Albumin (test code = Albumin) 4.2000 g/dL 3.5000-5.5000 Globulin (test code = Globulin) 3.0000 g/dL 1.5000-4.5000 A/G Ratio (test code = A/G Ratio) 1.4000 1.1000-2.5000 Bilirubin, Total (test code = Bilirubin, 0.3000 mg/dL 0.0000- 1.2000 Total) Alkaline Phosphatase (test code = Alkaline 112.0000 25.00 00-150.0000 Phosphatase) AST (SGOT) (test code = AST (SGOT)) 11.0000 0.0000-40.00 00 ALT (SGPT) (test code = ALT (SGPT)) 11.0000 0.0000-32.00 00 [id number] 10:51:00 Test Item Value Reference Range Comments WBC (test code = WBC) 9.6000 4.2000-10.0000 MID% (test code = MID%) 2.2000 % 1.2000-11.2000 Lymphocytes % (test code = Lymphocytes %) 5.6000 % 22.400 0-43.6000 Neutrophils % (test code = Neutrophils %) 92.2000 % 48.900 0-69.9000 Lymphocytes (test code = Lymphocytes) 0.5000 1.2000-3.2 000 MID (test code = MID) 0.3000 0.1000-1.1000 Neutrophils (test code = Neutrophils) 8.8000 1.5000-6.7 000 RBC (test code = RBC) 3.7600 4.5000-6.3000 HGB (test code = HGB) 12.2000 g/dL 14.0000-18.0000 HCT (test code = HCT) 35.1000 % 41.0000-51.0000 MCV (test code = MCV) 93.2000 fL 80.0000-94.0000 MCH (test code = MCH) 32.4000 pg 27.0000-34.0000 MCHC (test code = MCHC) 34.7000 g/dL 31.5000-36.0000 RDW (test code = RDW) 18.1000 11.0000-14.6000 PLT (test code = PLT) 291.0000 140.0000-440.0000 MPV (test code = MPV) 7.2000 fL 6.8000-10.6000 [id number] 11:00:00 Test Item Value Reference Range Comments Glucose (test code = Glucose) 85.0000 mg/dL 70.0000-118.0000 BUN (test code = BUN) 14.0000 mg/dL 7.0000-22.0000 Creatinine (test code = Creatinine) 0.6000 mg/dL 0.5000-1.200 0 Cr Clearance (Est) (test code = Cr 106.2800 75.0000-115.0 000 Clearance (Est)) Sodium (test code = Sodium) 139.0000 mmol/L 128.0000-145.0000 Potassium (test code = Potassium) 4.1000 mmol/L 3.6000-5.1000 Chloride (test code = Chloride) 101.0000 mmol/L 96.0000-108.0000 CO2 (test code = CO2) 25.0000 mmol/L 18.0000-33.0000 Calcium (test code = Calcium) 8.8000 mg/dL 8.0000-10.3000 Protein, Total (test code = Protein, 6.9000 g/dL 6.4000-8.10 00 Total) Albumin (test code = Albumin) 3.4000 g/dL 3.5000-5.5000 Bilirubin, Total (test code = Bilirubin, 0.5000 mg/dL 0.0000- 1.6000 Total) Alkaline Phosphatase (test code = Alkaline 96.0000 42.00 00-141.0000 Phosphatase) AST (SGOT) (test code = AST (SGOT)) 19.0000 11.0000-37.0 000 ALT (SGPT) (test code = ALT (SGPT)) 14.0000 10.0000-47.0 000 [id number] 07:09:00 Test Item Value Reference Range Comments WBC (test code = WBC) 3.1000 4.2000-10.0000 MID% (test code = MID%) 7.4000 % 1.2000-11.2000 Lymphocytes % (test code = Lymphocytes %) 27.2000 % 22.400 0-43.6000 Neutrophils % (test code = Neutrophils %) 65.4000 % 48.900 0-69.9000 Lymphocytes (test code = Lymphocytes) 0.8000 1.2000-3.2 000 MID (test code = MID) 0.3000 0.1000-1.1000 Neutrophils (test code = Neutrophils) 2.0000 1.5000-6.7 000 RBC (test code = RBC) 3.5700 4.5000-6.3000 HGB (test code = HGB) 11.3000 g/dL 14.0000-18.0000 HCT (test code = HCT) 32.9000 % 41.0000-51.0000 MCV (test code = MCV) 92.1000 fL 80.0000-94.0000 MCH (test code = MCH) 31.6000 pg 27.0000-34.0000 MCHC (test code = MCHC) 34.3000 g/dL 31.5000-36.0000 RDW (test code = RDW) 18.0000 11.0000-14.6000 PLT (test code = PLT) 312.0000 140.0000-440.0000 MPV (test code = MPV) 6.4000 fL 6.8000-10.6000 [id number] 12:26:00 Test Item Value Reference Range Comments WBC (test code = WBC) 2.6000 4.2000-10.0000 RBC (test code = RBC) 3.5400 4.5000-6.3000 HGB (test code = HGB) 11.0000 g/dL 14.0000-18.0000 HCT (test code = HCT) 32.5000 % 41.0000-51.0000 MCV (test code = MCV) 91.7000 fL 80.0000-94.0000 MCH (test code = MCH) 31.2000 pg 27.0000-34.0000 MCHC (test code = MCHC) 34.0000 g/dL 31.5000-36.0000 RDW (test code = RDW) 17.8000 11.0000-14.6000 PLT (test code = PLT) 297.0000 140.0000-440.0000 MPV (test code = MPV) 7.5000 fL 6.8000-10.6000 Neutrophils (test code = Neutrophils) 1.5000 1.5000-6.7 000 Lymphocytes (test code = Lymphocytes) 0.8000 1.2000-3.2 000 MID (test code = MID) 0.3000 0.1000-1.1000 Neutrophils % (test code = Neutrophils %) 58.9000 % 48.900 0-69.9000 Lymphocytes % (test code = Lymphocytes %) 32.5000 % 22.400 0-43.6000 MID% (test code = MID%) 8.6000 % - [id number] 02:05:00 Test Item Value Reference Range Comments WBC (test code = WBC) 2.2000 4.2000-10.0000 RBC (test code = RBC) 3.5700 4.5000-6.3000 HGB (test code = HGB) 11.2000 g/dL 14.0000-18.0000 HCT (test code = HCT) 32.8000 % 41.0000-51.0000 MCV (test code = MCV) 91.8000 fL 80.0000-94.0000 MCH (test code = MCH) 31.3000 pg 27.0000-34.0000 MCHC (test code = MCHC) 34.1000 g/dL 31.5000-36.0000 RDW (test code = RDW) 17.5000 11.0000-14.6000 PLT (test code = PLT) 158.0000 140.0000-440.0000 MPV (test code = MPV) 7.0000 fL 6.8000-10.6000 Neutrophils (test code = Neutrophils) 1.1000 1.5000-6.7 000 Lymphocytes (test code = Lymphocytes) 0.9000 1.2000-3.2 000 MID (test code = MID) 0.2000 0.1000-1.1000 Neutrophils % (test code = Neutrophils %) 51.2000 % 48.900 0-69.9000 Lymphocytes % (test code = Lymphocytes %) 39.9000 % 22.400 0-43.6000 MID% (test code = MID%) 8.9000 % - [id number] 01:04:00 Test Item Value Reference Range Comments WBC (test code = WBC) 2.7000 4.2000-10.0000 MID% (test code = MID%) 6.4000 % .1999- Lymphocytes % (test code = Lymphocytes %) 24.2000 % 22.400 0-43.6000 Neutrophils % (test code = Neutrophils %) 69.4000 % 48.900 0-69.9000 Lymphocytes (test code = Lymphocytes) 0.6000 1.2000-3.2 000 MID (test code = MID) 0.2000 0.1000-1.1000 Neutrophils (test code = Neutrophils) 1.9000 1.5000-6.7 000 RBC (test code = RBC) 3.9300 4.5000-6.3000 HGB (test code = HGB) 11.7000 g/dL 14.0000-18.0000 HCT (test code = HCT) 35.2000 % 41.0000-51.0000 MCV (test code = MCV) 89.6000 fL 80.0000-94.0000 MCH (test code = MCH) 29.9000 pg 27.0000-34.0000 MCHC (test code = MCHC) 33.4000 g/dL 31.5000-36.0000 RDW (test code = RDW) 17.7000 11.0000-14.6000 PLT (test code = PLT) 71.0000 140.0000-440.0000 MPV (test code = MPV) 8.9000 fL 6.8000-10.6000 [id number] 01:04:00 Test Item Value Reference Range Comments Glucose (test code = Glucose) 94.0000 mg/dL 70.0000-118.0000 Cr Clearance (Est) (test code = Cr 106.4400 75.0000-115.0 000 Clearance (Est)) Sodium (test code = Sodium) 141.0000 mmol/L 128.0000-145.0000 Potassium (test code = Potassium) 4.6000 mmol/L 3.6000-5.1000 Chloride (test code = Chloride) 99.0000 mmol/L 96.0000-108.0000 CO2 (test code = CO2) 26.0000 mmol/L 18.0000-33.0000 Calcium (test code = Calcium) 8.9000 mg/dL 8.0000-10.3000 BUN (test code = BUN) 9.0000 mg/dL 7.0000-22.0000 Creatinine (test code = Creatinine) 0.6000 mg/dL 0.5000-1.200 0 Alkaline Phosphatase (test code = Alkaline 89.0000 42.00 00-141.0000 Phosphatase) ALT (SGPT) (test code = ALT (SGPT)) 18.0000 10.0000-47.0 000 AST (SGOT) (test code = AST (SGOT)) 22.0000 11.0000-37.0 000 Bilirubin, Total (test code = Bilirubin, 0.6000 mg/dL 0.0000- 1.6000 Total) Albumin (test code = Albumin) 3.7000 g/dL 3.5000-5.5000 Protein, Total (test code = Protein, 7.1000 g/dL 6.4000-8.10 00 Total) [id number] 01:04:00 Test Item Value Reference Range Comments WBC (test code = WBC) 3.0000 4.2000-10.0000 RBC (test code = RBC) 3.9400 4.5000-6.3000 HGB (test code = HGB) 11.9000 g/dL 14.0000-18.0000 HCT (test code = HCT) 36.7000 % 41.0000-51.0000 MCV (test code = MCV) 93.1000 fL 80.0000-94.0000 MCH (test code = MCH) 30.2000 pg 27.0000-34.0000 MCHC (test code = MCHC) 32.4000 g/dL 31.5000-36.0000 RDW (test code = RDW) 17.2000 11.0000-14.6000 PLT (test code = PLT) 125.0000 140.0000-440.0000 MPV (test code = MPV) 7.7000 fL 6.8000-10.6000 Neutrophils (test code = Neutrophils) 1.9000 1.5000-6.7 000 Lymphocytes (test code = Lymphocytes) 0.8000 1.2000-3.2 000 MID (test code = MID) 0.3000 0.1000-1.1000 Neutrophils % (test code = Neutrophils %) 65.7000 % 48.900 0-69.9000 Lymphocytes % (test code = Lymphocytes %) 27.2000 % 22.400 0-43.6000 MID% (test code = MID%) 7.1000 % .1999- [id number] 01:08:00 Test Item Value Reference Range Comments WBC (test code = WBC) 3.6000 4.2000-10.0000 MID% (test code = MID%) 7.0000 % .1999- Lymphocytes % (test code = Lymphocytes %) 23.0000 % 22.400 0-43.6000 Neutrophils % (test code = Neutrophils %) 70.0000 % 48.900 0-69.9000 Lymphocytes (test code = Lymphocytes) 0.8000 1.2000-3.2 000 MID (test code = MID) 0.3000 0.1000-1.1000 Neutrophils (test code = Neutrophils) 2.5000 1.5000-6.7 000 RBC (test code = RBC) 4.1100 4.5000-6.3000 HGB (test code = HGB) 12.7000 g/dL 14.0000-18.0000 HCT (test code = HCT) 36.9000 % 41.0000-51.0000 MCV (test code = MCV) 89.8000 fL 80.0000-94.0000 MCH (test code = MCH) 31.1000 pg 27.0000-34.0000 MCHC (test code = MCHC) 34.6000 g/dL 31.5000-36.0000 RDW (test code = RDW) 17.1000 11.0000-14.6000 PLT (test code = PLT) 257.0000 140.0000-440.0000 MPV (test code = MPV) 7.6000 fL 6.8000-10.6000 [id number] 01:08:00 Test Item Value Reference Range Comments Glucose (test code = Glucose) 102.0000 mg/dL 70.0000-118.0000 Cr Clearance (Est) (test code = Cr 89.1900 75.0000-115.0 000 Clearance (Est)) Sodium (test code = Sodium) 143.0000 mmol/L 128.0000-145.0000 Potassium (test code = Potassium) 4.0000 mmol/L 3.6000-5.1000 Chloride (test code = Chloride) 104.0000 mmol/L 96.0000-108.0000 CO2 (test code = CO2) 28.0000 mmol/L 18.0000-33.0000 Calcium (test code = Calcium) 9.2000 mg/dL 8.0000-10.3000 BUN (test code = BUN) 13.0000 mg/dL 7.0000-22.0000 Creatinine (test code = Creatinine) 0.7000 mg/dL 0.5000-1.200 0 Alkaline Phosphatase (test code = Alkaline 94.0000 42.00 00-141.0000 Phosphatase) ALT (SGPT) (test code = ALT (SGPT)) 17.0000 10.0000-47.0 000 AST (SGOT) (test code = AST (SGOT)) 19.0000 11.0000-37.0 000 Bilirubin, Total (test code = Bilirubin, 0.5000 mg/dL 0.0000- 1.6000 Total) Albumin (test code = Albumin) 3.6000 g/dL 3.5000-5.5000 Protein, Total (test code = Protein, 7.2000 g/dL 6.4000-8.10 00 Total) [id number] 01:03:00 Test Item Value Reference Range Comments WBC (test code = WBC) 3.5000 4.2000-10.0000 MID% (test code = MID%) 6.2000 % 1.1999-11.1999 Lymphocytes % (test code = Lymphocytes %) 30.3000 % 22.400 0-43.6000 Neutrophils % (test code = Neutrophils %) 63.5000 % 48.900 0-69.9000 Lymphocytes (test code = Lymphocytes) 1.0000 1.2000-3.2 000 MID (test code = MID) 0.3000 0.1000-1.1000 Neutrophils (test code = Neutrophils) 2.2000 1.5000-6.7 000 RBC (test code = RBC) 3.9800 4.5000-6.3000 HGB (test code = HGB) 12.2000 g/dL 14.0000-18.0000 HCT (test code = HCT) 36.3000 % 41.0000-51.0000 MCV (test code = MCV) 91.0000 fL 80.0000-94.0000 MCH (test code = MCH) 30.8000 pg 27.0000-34.0000 MCHC (test code = MCHC) 33.8000 g/dL 31.5000-36.0000 RDW (test code = RDW) 17.1000 11.0000-14.6000 PLT (test code = PLT) 259.0000 140.0000-440.0000 MPV (test code = MPV) 7.9000 fL 6.8000-10.6000 [id number] 01:09:00 Test Item Value Reference Range Comments WBC (test code = WBC) 4.5000 4.2000-10.0000 MID% (test code = MID%) 6.5000 % 1.2000-11.1999 Lymphocytes % (test code = Lymphocytes %) 25.7000 % 22.400 0-43.6000 Neutrophils % (test code = Neutrophils %) 67.8000 % 48.900 0-69.9000 Lymphocytes (test code = Lymphocytes) 1.1000 1.2000-3.2 000 MID (test code = MID) 0.3000 0.1000-1.1000 Neutrophils (test code = Neutrophils) 3.1000 1.5000-6.7 000 RBC (test code = RBC) 4.1600 4.5000-6.3000 HGB (test code = HGB) 12.8000 g/dL 14.0000-18.0000 HCT (test code = HCT) 37.9000 % 41.0000-51.0000 MCV (test code = MCV) 91.2000 fL 80.0000-94.0000 MCH (test code = MCH) 30.7000 pg 27.0000-34.0000 MCHC (test code = MCHC) 33.7000 g/dL 31.5000-36.0000 RDW (test code = RDW) 16.3000 11.0000-14.6000 PLT (test code = PLT) 184.0000 140.0000-440.0000 MPV (test code = MPV) 9.0000 fL 6.8000-10.6000 [id number] 01:09:00 Test Item Value Reference Range Comments Glucose (test code = Glucose) 102.0000 mg/dL 70.0000-118.0000 Cr Clearance (Est) (test code = Cr 88.6500 75.0000-115.0 000 Clearance (Est)) Sodium (test code = Sodium) 140.0000 mmol/L 128.0000-145.0000 Potassium (test code = Potassium) 4.5000 mmol/L 3.6000-5.1000 Chloride (test code = Chloride) 100.0000 mmol/L 96.0000-108.0000 CO2 (test code = CO2) 31.0000 mmol/L 18.0000-33.0000 Calcium (test code = Calcium) 8.5000 mg/dL 8.0000-10.3000 BUN (test code = BUN) 12.0000 mg/dL 7.0000-22.0000 Creatinine (test code = Creatinine) 0.7000 mg/dL 0.5000-1.200 0 Alkaline Phosphatase (test code = Alkaline 105.0000 42.00 00-141.0000 Phosphatase) ALT (SGPT) (test code = ALT (SGPT)) 39.0000 10.0000-47.0 000 AST (SGOT) (test code = AST (SGOT)) 65.0000 11.0000-37.0 000 Bilirubin, Total (test code = Bilirubin, 0.7000 mg/dL 0.0000- 1.6000 Total) Albumin (test code = Albumin) 3.6000 g/dL 3.5000-5.5000 Protein, Total (test code = Protein, 7.4000 g/dL 6.4000-8.10 00 Total) [id number] 09:05:00 Test Item Value Reference Range Comments WBC (test code = WBC) 5.9000 4.2000-10.0000 MID% (test code = MID%) 7.1000 % 1.2000-11.2000 Lymphocytes % (test code = Lymphocytes %) 35.9000 % 22.400 0-43.6000 Neutrophils % (test code = Neutrophils %) 57.0000 % 48.900 0-69.9000 Lymphocytes (test code = Lymphocytes) 2.1000 1.2000-3.2 000 MID (test code = MID) 0.5000 0.1000-1.1000 Neutrophils (test code = Neutrophils) 3.3000 1.5000-6.7 000 RBC (test code = RBC) 4.3400 4.5000-6.3000 HGB (test code = HGB) 13.6000 g/dL 14.0000-18.0000 HCT (test code = HCT) 41.5000 % 41.0000-51.0000 MCV (test code = MCV) 95.6000 fL 80.0000-94.0000 MCH (test code = MCH) 31.3000 pg 27.0000-34.0000 MCHC (test code = MCHC) 32.8000 g/dL 31.5000-36.0000 RDW (test code = RDW) 16.5000 11.0000-14.6000 PLT (test code = PLT) 233.0000 140.0000-440.0000 MPV (test code = MPV) 8.7000 fL 6.8000-10.6000 [id number] 11:57:00 Test Item Value Reference Range Comments Creatinine (test code = Creatinine) 0.7700 mg/dL 0.5700-1.000 0 Cr Clearance (Est) (test code = Cr 82.2000 75.0000-115.0 000 Clearance (Est)) Glucose (test code = Glucose) 85.0000 mg/dL 65.0000-99.0000 BUN (test code = BUN) 8.0000 mg/dL 6.0000-24.0000 eGFR Dnv-Uybuyof-Bwyfiuai (test code = 90.0000 eGFR Eiu-Hfakxqj-Lonocpfw) eGFR -Ivorian (test code = eGFR 103.0000 -Ivorian) BUN/Creat Ratio (test code = BUN/Creat 10.0000 9.0000-23 .0000 Ratio) Sodium (test code = Sodium) 140.0000 mmol/L 134.0000-144.0000 Potassium (test code = Potassium) 4.0000 mmol/L 3.5000-5.2000 Chloride (test code = Chloride) 105.0000 mmol/L 97.0000-108.0000 CO2 (test code = CO2) 22.0000 mmol/L 20.0000-32.0000 Calcium (test code = Calcium) 9.5000 mg/dL 8.7000-10.2000 Protein, Total (test code = Protein, 6.7000 g/dL 6.0000-8.50 00 Total) Albumin (test code = Albumin) 4.0000 g/dL 3.5000-5.5000 Globulin (test code = Globulin) 2.7000 g/dL 1.5000-4.5000 A/G Ratio (test code = A/G Ratio) 1.5000 1.1000-2.5000 Bilirubin, Total (test code = Bilirubin, 0.2000 mg/dL 0.0000- 1.2000 Total) Alkaline Phosphatase (test code = Alkaline 96.0000 25.00 00-150.0000 Phosphatase) AST (SGOT) (test code = AST (SGOT)) 13.0000 0.0000-40.00 00 ALT (SGPT) (test code = ALT (SGPT)) 13.0000 0.0000-32.00 00 [id number] 10:33:00 Test Item Value Reference Range Comments WBC (test code = WBC) 4.9000 4.2000-10.0000 RBC (test code = RBC) 4.1200 4.5000-6.3000 HGB (test code = HGB) 12.6000 g/dL 14.0000-18.0000 HCT (test code = HCT) 39.0000 % 41.0000-51.0000 MCV (test code = MCV) 94.6000 fL 80.0000-94.0000 MCH (test code = MCH) 30.7000 pg 27.0000-34.0000 MCHC (test code = MCHC) 32.4000 g/dL 31.5000-36.0000 RDW (test code = RDW) 16.3000 11.0000-14.6000 PLT (test code = PLT) 278.0000 140.0000-440.0000 MPV (test code = MPV) 7.7000 fL 6.8000-10.6000 Neutrophils (test code = Neutrophils) 3.4000 1.5000-6.7 000 Lymphocytes (test code = Lymphocytes) 1.1999 1.2000-3.2 000 MID (test code = MID) 0.3000 0.1000-1.1000 Neutrophils % (test code = Neutrophils %) 69.3000 % 48.900 0-69.9000 Lymphocytes % (test code = Lymphocytes %) 24.6000 % 22.400 0-43.6000 MID% (test code = MID%) 6.1000 % - Assessments Condition Name Status Diagnosis Date Treating Clinici 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 Oncology Oncology [facility] 2020-06-24 2020-06-24 Outpatient Tiagoannie Tiagoannie n [id number] 00:00:00 00:00:[address] [facility] Oncology Oncology [facility] 2020-06-22 2020-06-22 Outpatient VIDANT VIDANT [id number] 00:00:00 00:00:00 2020-05-29 2020-05-29 Outpatient Tiagoannie Tiagoannie yates [id number] 00:00:00 00:00:[address] [facility] Oncology Oncology [facility] 2020-04-29 2020-04-29 Daniel Cortez [id number] 00:00:00 00:00:00 Dr. Saab [facility] Oncology Oncology [facility] 2020-04-26 2020-04-26 Outpatient Daniel yates [id number] 00:00:00 00:00:[address] [facility] Oncology Oncology [facility] 2020-04-25 2020-04-25 Outpatient Daniel Cortez rn [id number] 00:00:00 00:00:00 [facility] [place] 2[facility] Oncology Oncology [facility] 2020-04-12 2020-04-12 Outpatient Daniel Sanchez n [id number] 00:00:00 00:00:00 [facility] Medical Oncology Oncology [facility] 2020-04-10 2020-04-10 Outpatient DiegoDaniel rn [id number] 00:00:00 00:00:00 [facility] Oncology Oncology [facility] 2020-03-23 2020-03-23 Outpatient Daniel Sanchez n [id number] 00:00:00 00:00:[address] [facility] Oncology Oncology [facility] 2020-03-23 2020-03-23 Outpatient VIDANT VIDANT [id number] 00:00:00 00:00:00 2020-03-05 2020-03-05 Outpatient Daniel Sanchez n [id number] 00:00:00 00:00:[address] [facility] Oncology Oncology [facility] 2019-12-29 2019-12-29 Outpatient VIDANT VIDANT [id number] 00:00:00 00:00:00 2019-10-03 2019-10-03 Outpatient VIDANT VIDANT [id number] 00:00:00 00:00:00 2019-07-11 2019-07-11 Outpatient Daniel Sanchez n [id number] 00:00:00 00:00:[address] [facility] Oncology Oncology [facility] 2019-07-06 2019-07-10 Inpatient VIDANT VIDANT [id number] 06:58:00 16:41:00 2019-07-10 2019-07-10 Outpatient Daniel Sanchez n [id number] 00:00:00 00:00:[address] [facility] Oncology Oncology [facility] 2019-07-06 2019-07-06 Inpatient VIDANT VIDANT [id number] 10:44:00 14:03:00 2019-07-06 2019-07-06 Inpatient Denise GOODSON, VIDANT VIDANT [id number] 06:58:00 06:58:00 [facility] 2019 2019 Outpatient VIDANT VIDANT [id number] 10:00:00 23:59:00 2019-06-22 2019-06-22 Outpatient VIDANT VIDANT [id number] 16:45:00 23:59:00 2019-06-22 2019-06-22 Outpatient VIDANT VIDANT [id number] 16:00:00 16:44:00 2019-06-19 2019-06-19 Diego Tiago [facility] [id number] 00:00:00 00:00:00 [facility] On[facility] [place] 2019-06-16 2019-06-16 Outpatient Daniel Cortezpeewee rn [id number] 00:00:00 00:00:00 [facility] On[facility] [place] 2019-06-15 2019-06-15 Outpatient Daniel Cortez [place] rn [id number] 00:00:00 00:00:00 [facility] [place] 2019-05-26 2019-05-26 Diego Cortez, [facility] [id number] 00:00:00 00:00:00 [facility] [place][Note 2] Oncology [facility] [place] 2019-05-18 2019-05-18 Outpatient Daniel Sanchez n [id number] 00:00:00 00:00:[address] [facility] Oncology [facility] [place] 2019-05-17 2019-05-17 Outpatient Daniel Sanchez n [id number] 00:00:00 00:00:00 [facility] Medical Oncology [facility] [place] 2019-05-16 2019-05-16 Diego, Tiago [facility] [id number] 00:00:00 00:00:00 [facility] [place][Note 2] Oncology [facility] [place] 2019-05-05 2019-05-05 Outpatient Daniel Cortez Kinsey rn [id number] 00:00:00 00:00:00 [facility] Medical Oncology [facility] [place] 2019-03-15 2019-03-15 Diego [facility] [id number] 00:00:00 00:00:00 [facility] Medical Oncology [facility] [place] 2019-03-03 2019-03-03 Outpatient Daniel Sanchez n [id number] 00:00:00 00:00:00 [facility] Medical Oncology [facility] [place] 2018-12-13 2018-12-13 Diego, Diego, [facility] [id number] 00:00:00 00:00:00 [facility] Medical Oncology [facility] [place] 2018-12-01 2018-12-01 Outpatient Daniel Ordoñezer n [id number] 00:00:00 00:00:00 [facility] Medical Oncology [facility] [place] 2018-10-13 2018-10-13 [id number]00 00:00:00 [facility] Oncology Oncology [facility] 2018-10-12 2018-10-12 Diego Cortez [facility] [id number] 00:00:00 00:00:00 [facility] [place] [facility] [facility] [place] Oncology Oncology [facility] 2018-08-10 2018-08-10 Outpatient VIDANT VIDANT [id number] 10:39:08 23:59:00 2018-08-09 2018-08-09 Diego Cortez [facility] [id number] 00:00:00 00:00:00 Dr. Kaiser yates [facility] [place][Note 2] Oncology Oncology [facility] 2018-07-14 2018-07-14 [facility] [id number] [facility]:00 00:00:00 [facility] Oncology Oncology [facility] 2018-06-24 2018-06-24 Outpatient R IVAN VIDANT VIDANT [id number] 06:14:26 23:59:00 [place] 2018-06-24 2018-06-24 Outpatient VIDANT VIDANT [id number] 06:14:26 23:59:00 2018-06-24 2018-06-24 Outpatient Daniel Sanchez n [id number] 00:00:00 00:00:[address] [facility] [place] [facility] Oncology Oncology [facility] 2018-06-13 2018-06-13 Diego Logan [facility] [id number] 00:00:00 00:00:00 Gaby Espinoza [facility] Oncology Oncology [facility] 2018-06-08 2018-06-08 Outpatient Daniel Sanchez n [id number] 00:00:00 00:00:[address] [facility] [place] [facility] Oncology Oncology [facility] 2018-06-07 2018-06-07 Outpatient IVAN VIDANT VIDANT [id number] 10:59:09 23:59:00 HA 2018-06-07 2018-06-07 Outpatient VIDANT VIDANT [id number] 10:59:09 23:59:00 2018-06-07 2018-06-07 Outpatient Daniel Sanchez n [id number] 00:00:00 00:00:[address] [facility] [place] [facility] Oncology Oncology [facility] 2018-06-06 2018-06-06 Outpatient Daniel Cortez rn [id number] 00:00:00 00:00:00 [facility] Medical Oncology [facility] [place] 2018-05-12 2018-05-12 SammyDiego mayes [facility] [id number] 00:00:00 00:00:00 Dr. Kaiser yates [facility] Medical Oncology [facility] [place] 2018-04-27 2018-04-27 Outpatient Daniel Sanchez n [id number] 00:00:00 00:00:00 [facility] Medical Oncology [facility] [place] 2018-04-25 2018-04-25 Outpatient Daniel Cortez rn [id number] 00:00:00 00:00:[address] [facility] [place] [facility] Oncology Oncology [facility] [place] 2018-04-21 2018-04-21 Outpatient Daniel Sanchez n [id number] 00:00:00 00:00:00 [facility] Medical Oncology On[facility] [place] 2018-04-18 2018-04-18 Outpatient Daniel Sanchez n [id number] 00:00:00 00:00:[address] [facility] [place] [facility] Oncology Oncology [facility] [place] 2018-04-15 2018-04-15 Outpatient Daniel Cortez rn [id number] 00:00:00 00:00:[address] [facility] [place] [facility] Oncology [facility]cology [facility] [place] 2018-04-07 2018-04-07 Diego Cortez [facility] [id number] 00:00:00 00:00:00 Dr. Kaiser yates [facility] Medical Oncology Oncology [facility] [place] 2017-04-07 2017-04-07 Jorge Albertoaaron Diego Tiagoer [facility] [id number] 00:00:00 00:00:00 Dr. Kaiser yates [facility] Medical Oncology On[facility] [place] 2017-04-05 2017-04-05 Outpatient Daniel Corteze rn [id number] 00:00:00 00:00:00 [facility] Medical Oncology On[facility] [place] 2017-03-29 2017-03-29 Outpatient Daniel Ordoñezer n [id number] 00:00:00 00:00:00 [facility] Medical Oncology Oncology [facility] [place] 2017-03-24 2017-03-24 Outpatient Daniel Ordoñezer n [id number] 00:00:00 00:00:00 [facility] Medical Oncology Oncology [facility] [place] 2017-03-23 2017-03-23 Outpatient Daniel Ordoñezer n [id number] 00:00:00 00:00:00 [facility] Medical Oncology Oncology [facility] [place] 2016-07-22 2016-07-22 Outpatient Daniel Ordoñezer n [id number] 00:00:00 00:00:00 [facility] Medical Oncology Oncology Center Center 2016-07-10 2016-07-10 Outpatient Daniel Ordoñezer n [id number] 00:00:00 00:00:00 [facility] Medical Oncology Oncology [facility] [place] 2016-07-07 2016-07-07 Outpatient Daniel Ordoñezer n [id number] 00:00:00 00:00:00 [facility] Medical Oncology On[facility] [place] 2016-03-26 2016-03-26 Diego Miller [facility] [id number] 00:00:00 00:00:00 Dallas Saab [facility] [place] [facility] Oncology Oncology [facility] [place] 2016-03-10 2016-03-10 Outpatient Daniel Ordoñezer n [id number] 00:00:00 00:00:00 [facility] Medical Oncology On[facility] [place] 2015-08-19 2015-08-19 Diego Cortez [facility] [id number] 00:00:00 00:00:00 Dr. Kaiser yates [facility] [place][Note 2] Oncology Oncology [facility] [place] 2015-07-23 2015-07-23 Outpatient Daniel Ordoñezer n [id number] 00:00:00 00:00:[address] [facility] [place] [facility] Oncology Oncology [facility] [place] 2015-07-18 2015-07-18 Outpatient Daniel Sanchez n [id number] 00:00:00 00:00:00 [facility] Medical Oncology On[facility] [place] 2015-07-17 2015-07-17 Outpatient Daniel Sanchez n [id number] 00:00:00 00:00:00 [facility] Medical Oncology On[facility] [place] 2015-06-18 2015-06-18 Outpatient Daniel Cortez rn [id number] 00:00:00 00:00:00 [facility] y[facility] Medical Oncology Oncology [facility] [place] 2015-06-11 2015-06-11 Diego Cortez [facility] [id number] 00:00:00 00:00:00 Dr. Kaiser yates [facility] [place][Note 2] Oncology Oncology [facility] [place] 2015-02-20 2015-02-20 Outpatient Daniel Sanchez n [id number] 00:00:00 00:00:[address] [facility] [place] [facility] Oncology Oncology [facility] [place] 2015-02-14 2015-02-14 Diego Cortez [facility] [id number] 00:00:00 00:00:00 Dr. Kaiser yates [facility] [place][Note 2] Oncology Oncology [facility] [place] 2015-01-28 2015-01-28 Outpatient Daniel Sanchez n [id number] 00:00:00 00:00:[address] [facility] [place] [facility] Oncology Oncology [facility] [place] 2014-10-03 2014-10-03 Outpatient Daniel Sanchez n [id number] 00:00:00 00:00:[address] [facility] [place] [facility] Oncology Oncology [facility] [place] 2014-09-20 2014-09-20 [facility]ber [facility] [id number] 00:00:00 00:00:00 [facility] [place] [facility] Oncology Oncology [facility] [place] 2014-09-18 2014-09-18 Outpatient Daniel Cortez rn [id number] 00:00:00 [facility]:00[facility] [place] 2014-09-07 2014-09-07 Outpatient Daniel Sanchez n [id number] 00:00:00 00:00:[address] [facility] [place] [facility] Oncology Oncology [facility] [place] 2014-07-20 2014-07-20 Jorge Alberto [facility] [id number] 00:00:00 00:00:00 Dr. Kaiser yates [facility] [place][Note 2] Oncology Oncology [facility] [place] 2014-07-12 2014-07-12 Outpatient Daniel Cortez rn [id number] 00:00:00 00:00:00 [facility] [place] 2014-07-10 2014-07-10 Outpatient Daniel Sanchez n [id number] 00:00:00 00:00:[address] [facility] [place] [facility] Oncology Oncology [facility] [place] 2014-06-27 2014-06-27 Outpatient Tiagoannie Sanchez n [id number] 00:00:00 00:00:00 [facility] Medical Oncology Oncology [facility] [place] 2014-06-08 2014-06-08 Outpatient Daniel Cortez rn [id number] 00:00:00 00:00:[address] [facility] [place] [facility] Oncology Oncology [facility] [place] 2014-03-09 2014-03-09 Sammy Cortezgerber [facility] [id number] 00:00:00 00:00:00 Dr. Kaiser yates [facility] [place][Note 2] Oncology Oncology [facility] [place] 2014-03-02 2014-03-02 Outpatient Daniel Tiagoannie n [id number] 00:00:00 00:00:00 [facility] Medical Oncology On[facility] [place] 2014-02-27 2014-02-27 Outpatient Daniel Sanchez n [id number] 00:00:00 00:00:[address] [facility] [place] [facility] Oncology Oncology [facility] [place] 2014-02-23 2014-02-23 Sammygerber Daniel Mike [id number] 00:00:00 00:00:00 Dr. Kaiser yates [facility] [place][Note 2] Oncology Oncology [facility] [place] 2014-02-13 2014-02-13 Outpatient Daniel Cortez rn [id number] 00:00:00 00:00:00 [facility] Oncology Oncology [facility] [place] 2014-02-09 2014-02-09 Outpatient Daniel Sanchez n [id number] 00:00:00 00:00:[address] [facility] [place] [facility] Oncology Oncology [facility] [place] 2013-11-21 2013-11-21 Outpatient Daniel Sanchez n [id number] 00:00:00 00:00:[address] [facility] [place] [facility] Oncology Oncology [facility] [place] 2013-11-17 2013-11-17 Diego Cortez [facility] [id number] 00:00:00 00:00:00 Dr. Kaiser yates [facility] [place][Note 2] Oncology Oncology [facility] [place] 2013-11-10 2013-11-10 Outpatient Sammygerber Tiagoannie Euceda rn [id number] 00:00:00 00:00:00 [facility] Oncology [facility]cology [facility] [place] 2013-11-07 2013-11-07 Outpatient Daniel Sanchez n [id number] 00:00:00 00:00:[address] [facility] [place] [facility] Oncology Oncology [facility] [place] 2013-09-15 2013-09-15 Outpatient Daniel Sanchez n [id number] 00:00:00 00:00:[address] [facility] [place] [facility] Oncology Oncology [facility] [place] 2013-08-14 2013-08-14 Diego Cortez [facility] [id number] 00:00:00 00:00:00 Dr. Kaiser yates [facility] [place][Note 2] Oncology Oncology [facility] [place] 2013-08-09 2013-08-09 Outpatient Daniel Cortez rn [id number] 00:00:00 00:00:00 [facility] [place] 2013-07-28 2013-07-28 Outpatient Daniel Sanchez n [id number] 00:00:00 00:00:[address] [facility] [place] [facility] Oncology Oncology [facility] [place] 2013-07-27 2013-07-27 Outpatient Daniel Sanchez n [id number] 00:00:00 00:00:00 [facility] Medical Oncology Oncology [facility] [place] 2013-07-26 2013-07-26 Outpatient Daniel Sanchez n [id number] 00:00:00 00:00:00 [facility] Medical Oncology On[facility] [place] 2013-07-25 2013-07-25 Miss Diego Judge [facility] [id number] 00:00:00 00:00:00 Mechelle Saab [facility] [place] [facility] Oncology Oncology [facility] [place] 2013-07-18 2013-07-18 Outpatient Daniel Cortez rn [id number] 00:00:00 00:00:00 [facility] [place] 2013-07-14 2013-07-14 Outpatient Daniel Sanchez n [id number] 00:00:00 00:00:[address] [facility] [place] [facility] Oncology Oncology [facility] [place] 2013-06-26 2013-06-26 Outpatient Daniel Sanchez n [id number] 00:00:00 00:00:[address] [facility] [place] [facility] Oncology Oncology [facility] [place] 2013-06-14 2013-06-14 Outpatient Daniel Sanchez n [id number] 00:00:00 00:00:00 [facility] Medical Oncology On[facility] [place] 2013-05-25 2013-05-25 Outpatient Daniel Sanchez n [id number] 00:00:00 00:00:[address] [facility] [place] [facility] Oncology Oncology [facility] [place] 2013-05-23 2013-05-23 Miss Diego Judge [facility] [id number] 00:00:00 00:00:00 Mechelle Saab [facility] Medical Oncology Oncology [facility] [place] 2013-03-22 2013-03-22 [facility] [id number] 00:00:00 00:00:00 Paulette Saab [facility] Medical Oncology Oncology [facility] [place] 2013-03-08 2013-03-08 Outpatient Daniel Sanchez n [id number] 00:00:00 00:00:00 [facility] Medical Oncology Oncology Center Center 2013-03-07 2013-03-07 Outpatient Daniel Sanchez n [id number] 00:00:00 00:00:00 [facility] Medical Oncology On[facility] [place] 2013-03-06 2013-03-06 Outpatient Daniel Sanchez n [id number] 00:00:00 00:00:00 [facility] Medical Oncology Oncology [facility] [place] 2013-02-08 2013-02-08 Outpatient Sammygerber Daniel Ordoñeze rn [id number] 00:00:00 00:00:00 [facility] Oncology Oncology [facility] 2013-02-07 2013-02-07 Miss Diego Judge [facility] [id number] 00:00:00 00:00:00 Mechelle Parks [facility] Oncology Oncology [facility] 2013-01-30 2013-01-30 Outpatient Jorge Albertoaaron Daniel Tiagoe rn [id number] 00:00:00 00:00:00 [facility] Oncology Oncology [facility] 2013-01-23 2013-01-23 Outpatient Sammygerber Daniel Tiagoe rn [id number] 00:00:00 00:00:00 [facility] Oncology Oncology [facility] 2013-01-17 2013-01-17 Outpatient Sammygerber Daniel Tiagoe rn [id number] 00:00:00 00:00:00 [facility] Oncology Oncology [facility] 2013-01-16 2013-01-16 Diego Cortez [facility] [id number] 00:00:00 00:00:00 Dr. Saab [facility] Oncology Oncology [facility] 2013-01-09 2013-01-09 Outpatient Diego Daniel Ordoñeze rn [id number] 00:00:00 00:00:00 [facility] Oncology Oncology [facility] 2013-01-02 2013-01-02 Outpatient Sammygerber Daniel Tiagoe rn [id number] 00:00:00 00:00:00 [facility] Oncology Oncology [facility] 2012-12-27 2012-12-27 Outpatient Jorge Albertoaaron Daniel Tiagoe rn [id number] 00:00:00 00:00:00 [facility] Oncology Oncology [facility] 2012-12-26 2012-12-26 Jorge AlbertoDiego walker [facility] [id number] 00:00:00 00:00:00 Dr. Saab Kaiser [facility] [place] [facility] Oncology Oncology [facility] 2012-12-19 2012-12-19 Outpatient Jorge Albertoaaron Daniel Tiagoe rn [id number] 00:00:00 00:00:00 [facility] Oncology Oncology [facility] 2012-12-12 2012-12-12 Outpatient Diego Tiagoannie Ordoñeze rn [id number] 00:00:00 00:00:00 [facility] [place] 2012-12-06 2012-12-06 Outpatient Daniel Ordoñez n [id number] 00:00:00 00:00:[address] [facility] [place] [facility] Oncology Oncology [facility] [place] 2012-12-05 2012-12-05 Outpatient Daniel Sanchez n [id number] 00:00:00 00:00:[address] [facility] [place] [facility] Oncology Oncology [facility] [place] 2012-11-21 2012-11-21 Outpatient Daniel Corteze rn [id number] 00:00:00 00:00:00 [facility] [place] 2012-11-14 2012-11-14 Outpatient Daniel Corteze rn [id number] 00:00:00 00:00:00 [facility] [place] 2012-11-07 2012-11-07 Diego Diego [facility] [id number] 00:00:00 00:00:00 Dr. Kaiser yates [facility] [place][Note 2] Oncology Oncology [facility] [place] 2012-10-31 2012-10-31 Outpatient [facility] Tiago n [id number] 00:00:00 00:00:[address] [facility] [place] [facility] Oncology Oncology [facility] [place] 2012-10-24 2012-10-24 [facility] [id number] 00:00:00 00:00:00 Mechelle Saab [facility] [place] [facility] Oncology Oncology [facility] [place] 2012-10-17 2012-10-17 [facility] [id number] 00:00:00 00:00:00 Mechelle yates [facility] [place][Note 2] Oncology Oncology [facility] [place] 2012-10-10 2012-10-10 Sammy Cortezyaram, [facility] [id number] 00:00:00 00:00:00 Dr. Kaiser yates [facility] Medical Oncology Oncology [facility] [place] 2012-10-03 2012-10-03 Diego Cortez, [facility] [id number] 00:00:00 00:00:00 Dr. Kaiser yates [facility] [place][Note 2] Oncology Oncology [facility] [place] 2012-09-26 2012-09-26 Sammy Cortezyaram, [facility] [id number] 00:00:00 00:00:00 Dr. Kaiser yates [facility] [place][Note 2] Oncology Oncology [facility] [place] 2012-09-20 2012-09-20 Outpatient [facility] n [id number] 00:00:00 00:00:[address] [facility] [place] [facility] Oncology Oncology [facility] [place] 2012-09-12 2012-09-12 Outpatient Daniel Tiagoannie n [id number] 00:00:00 00:00:[address] [facility] [place] [facility] Oncology Oncology [facility] [place] 2012-09-09 2012-09-09 Miss Sammy JudgeDaniel mayes bob [id number] 00:00:00 00:00:00 Mechelle Parks [facility] Oncology Oncology [facility] [place] 2012-09-05 2012-09-05 Outpatient Daniel Tiagoannie n [id number] 00:00:00 00:00:[address] [facility] [place] [facility] Oncology Oncology [facility] [place] 2012-08-30 2012-08-30 Outpatient Daniel Cortez rn [id number] 00:00:00 00:00:00 [facility] Oncology Oncology [facility] [place] 2012-08-28 2012-08-28 Outpatient Daniel Tiagoannie n [id number] 00:00:00 00:00:[address] [facility] [place] [facility] Oncology Oncology [facility] [place] 2012-08-09 2012-08-09 Outpatient Daniel Cortez rn [id number] 00:00:00 00:00:00 [facility] Oncology [facility] [place] 2012-07-25 2012-07-25 Outpatient Daniel Sanchez n [id number] 00:00:00 00:00:[address] [facility] [place] [facility] Oncology Oncology [facility] [place] 2012-07-04 2012-07-04 Outpatient Daniel Cortez rn [id number] 00:00:00 00:00:00 [facility] Oncology [facility] [place] 2012-07-01 2012-07-01 Outpatient Daniel Cortez rn [id number] 00:00:00 00:00:00 [facility] Oncology [facility] [place] 2012-06-24 2012-06-24 Outpatient Daniel Tiagoannie n [id number] 00:00:00 00:00:[address] [facility] [place] [facility] Oncology Oncology [facility] [place] 2012-06-14 2012-06-14 Cande Ramirez [facility] [id number] 00:00:00 00:00:00 [facility] Oncology [facility] [place] 2012-06-07 2012-06-07 Outpatient Daniel Sanchez n [id number] 00:00:00 00:00:[address] [facility] [place] [facility] Oncology Oncology [facility] [place] 2012-06-06 2012-06-06 Outpatient Daniel Sanchez n [id number] 00:00:00 00:00:00 n Medical Medical Oncology Oncology Center Center Immunizations Ordered Immunization Filled Immunization Date Status Commen ts Refusal Reason Name Name PPV 23 Vaccine, 2012-08-13 Completed Intramuscular or 00:00:00 Subcuetaneous Payers Payer Name Policy Type Policy Number Effective Date Expiration D ate [facility] [id number] 2011 HEALTH PLAN 00:00:00 [id number] MEDICAREMEDICARE PART A [id number] for all datesMedicare MEDICAIDMEDICAID [place] [id number] ACCESS [id number] for all [phone] [facility] PPO [id number] MEDICARE PART A ONLY [id number] Plan of Treatment Planned Activity Planned Date Details Comments Future Scheduled Test [code = ] Future Scheduled Test [code = ] Future Scheduled Test [code = ] Future Scheduled Test [code = ] Future Scheduled Test [code = ] Instructions Ha Keller RN - 8 [facility] Post Procedure Patient Instructions R emove the bandages on the pin sites the ne xt day. Apply fresh bandages every day u ntil there is no more drainage from t he pin sites. You may have drainage for 1 to 3 days. You may gently wash your h air on the third day after your treatme nt. It is okay to get the pin sites wet. D o not use hair spray, mousee, gels, hair c olor, permanents, or any prodcut that may cause irritation until the pin sites h ave completely healed. The pin sites should heal in 7-21 days. Blood-tinged water may be seen when you wash your hair. This may be from dried blood in your hair after head frame placement and removal . Swelling around the eyes may hap pen after treatment. This is sometimes fro m the injection used to numb the pin s ites. Keeping your head elevated is th e host helpful treatment. Elevate your head when you sleep to help reduce swellin g. You may also apply cool compresses o r an ice pack to the swollen area three t imes a day for 20 minutes at a time. Th e swelling should go down within 5 to 7 days. Some patients have tinglin g or scalp numbness above the pin sit es. This can be short-term or become perm anent. You may return to work or school within 48 hours or sooner if you feel w ell enough. You may resume all other regular activities within 48 hours (unle ss your doctor has instructed you otherw ise). You may resume your regular diet rig ht away. Call the [facility] if y ou develop the followin. Signs o f infection: more redness, swellin g, drainage, or pain at the pin sit es, and / or fever of 100.5 F or higher. 2 . New seizures3. Worsening headaches, especially if you also have naus ea and vomiting.4. Trouble walking or n ot feeling steady on your feet.5. N umbness / tingling in arms, legs, face or trunk.6. Trouble swallowing or choking.7. Confusion or change in behavior. 8. Trouble with urination or bowel movements.9. Weakness in face, a linwood, or legs, or new vison problems. If you have any questions or concerns, jose luis vides call the [facility] at Dr. Phuc Goodson [phone] or [phone]. Alex Menon [phone] Jones, RN, [facility] [phone] in this encounter Instructions Ha Keller RN - 8 [facility] Post Procedure Patient Instructions R emove the bandages on the pin sites the ne xt day. Apply fresh bandages every day u ntil there is no more drainage from t he pin sites. You may have drainage for 1 to 3 days. You may gently wash your h air on the third day after your treatme nt. It is okay to get the pin sites wet. D o not use hair spray, mousee, gels, hair c olor, permanents, or any prodcut that may cause irritation until the pin sites h ave completely healed. The pin sites should heal in 7-21 days. Blood-tinged water may be seen when you wash your hair. This may be from dried blood in your hair after head frame placement and removal . Swelling around the eyes may hap pen after treatment. This is sometimes fro m the injection used to numb the pin s ites. Keeping your head elevated is th e host helpful treatment. Elevate your head when you sleep to help reduce swellin g. You may also apply cool compresses o r an ice pack to the swollen area three t imes a day for 20 minutes at a time. Th e swelling should go down within 5 to 7 days. Some patients have tinglin g or scalp numbness above the pin sit es. This can be short-term or become perm anent. You may return to work or school within 48 hours or sooner if you feel w ell enough. You may resume all other regular activities within 48 hours (unle ss your doctor has instructed you otherw ise). You may resume your regular diet rig ht away. Call the [facility] if y ou develop the followin. Signs o f infection: more redness, swellin g, drainage, or pain at the pin sit es, and / or fever of 100.5 F or higher. 2 . New seizures3. Worsening headaches, especially if you also have naus ea and vomiting.4. Trouble walking or n ot feeling steady on your feet.5. N umbness / tingling in arms, legs, face or trunk.6. Trouble swallowing or choking.7. Confusion or change in behavior. 8. Trouble with urination or bowel movements.9. Weakness in face, a linwood, or legs, or new vison problems. If you have any questions or concerns, jose luis vides call the [facility] at Dr. Phuc Goodson [phone] or [phone]. Alex Menon [phone] Jones, RN, [facility]ist [phone] in this encounter Social History Social Habit Start Date Stop Date Comments Cigarettes smoked current (pack per 2019-10-24 00:00:00 00:00:00 day) - Reported Cigarette pack-years 2019-10-24 00:00:00 2019-10-24 00:00:00 Alcohol intake 2019-10-24 00:00:00 2019-10-24 00:00:00 Tobacco use and exposure 2019-10-24 00:00:00 2019-10-24 00:00:00 Tobacco Comment 2012-08-02 00:00:00 2012-08-02 00:00:00 Smoking Status Start Date Stop Date Yes - but quit (former) 2020-04-29 00:00:00 2020-04-29 00:00 :00 History of tobacco use 2005-06-10 00:00: 00 Social History Observation Description Sex Female Vital Signs Vital Name Observation Time Observation Value Comments BMI 2020-04-29 14:23:17 27.7300 BP javier 2020-04-29 14:23:17 85.0000 mm[Hg] Bdy height 2020-04-29 14:23:17 60.3000 [in_i] SaO2% BldA PulseOx 2020-04-29 14:23:17 94.0000 % Heart rate 2020-04-29 14:23:17 90.0000 /min Resp rate 2020-04-29 14:23:17 16.0000 /min BP sys 2020-04-29 14:23:17 142.0000 mm[Hg] Body temperature 2020-04-29 14:23:17 98.1000 [degF] Weight 2020-04-29 14:23:17 143.4000 [lb_av] Systolic blood pressure 2019-07-10 16:00:00 131 mm[Hg] Diastolic blood pressure 2019-07-10 16:00:00 98 mm[Hg] Body temperature 2019-07-10 16:00:00 36.89 Sheree Heart rate 2019-07-10 12:00:00 76 /min Respiratory rate 2019-07-10 12:00:00 18 /min Oxygen saturation in Arterial blood by 2019-07-10 12:00:00 100 % Pulse oximetry Body height 2019-07-06 07:45:00 160 cm Body weight 2019-07-06 07:45:00 61.689 kg BMI 2019-07-06 07:45:00 24.09 kg/m2 Body height 2019-06-22 16:41:00 160 cm Body weight 2019-06-22 16:41:00 59.467 kg BMI 2019-06-22 16:41:00 23.22 kg/m2 BMI 2019-06-19 15:36:36 26.4500 BP javier 2019-06-19 15:36:36 68.0000 mm[Hg] Bdy height 2019-06-19 15:36:36 60.3000 [in_i] Heart rate 2019-06-19 15:36:36 86.0000 /min Resp rate 2019-06-19 15:36:36 16.0000 /min BP sys 2019-06-19 15:36:36 117.0000 mm[Hg] Body temperature 2019-06-19 15:36:36 97.8000 [degF] Weight 2019-06-19 15:36:36 136.8000 [lb_av] BMI 2019-05-16 15:25:57 26.4900 BP javier 2019-05-16 15:25:57 83.0000 mm[Hg] Bdy height 2019-05-16 15:25:57 60.3000 [in_i] SaO2% BldA PulseOx 2019-05-16 15:25:57 96.0000 % Heart rate 2019-05-16 15:25:57 91.0000 /min Resp rate 2019-05-16 15:25:57 16.0000 /min BP sys 2019-05-16 15:25:57 131.0000 mm[Hg] Body temperature 2019-05-16 15:25:57 98.3000 [degF] Weight 2019-05-16 15:25:57 137.0000 [lb_av] BMI 2019-03-15 10:35:48 25.6800 BP javier 2019-03-15 10:35:48 95.0000 mm[Hg] Bdy height 2019-03-15 10:35:48 60.3000 [in_i] SaO2% BldA PulseOx 2019-03-15 10:35:48 97.0000 % Heart rate 2019-03-15 10:35:48 72.0000 /min Resp rate 2019-03-15 10:35:48 20.0000 /min BP sys 2019-03-15 10:35:48 135.0000 mm[Hg] Body temperature 2019-03-15 10:35:48 97.2000 [degF] Weight 2019-03-15 10:35:48 132.8000 [lb_av] BMI 2018-12-13 11:03:01 26.4500 BP javier 2018-12-13 11:03:01 88.0000 mm[Hg] Bdy height 2018-12-13 11:03:01 60.3000 [in_i] Heart rate 2018-12-13 11:03:01 83.0000 /min Resp rate 2018-12-13 11:03:01 14.0000 /min BP sys 2018-12-13 11:03:01 143.0000 mm[Hg] Body temperature 2018-12-13 11:03:01 96.6000 [degF] Weight 2018-12-13 11:03:01 136.8000 [lb_av] BMI 2018-10-12 13:19:23 27.3800 BP javier 2018-10-12 13:19:23 78.0000 mm[Hg] Bdy height 2018-10-12 13:19:23 60.3000 [in_i] SaO2% BldA PulseOx 2018-10-12 13:19:23 96.0000 % Heart rate 2018-10-12 13:19:23 91.0000 /min Resp rate 2018-10-12 13:19:23 18.0000 /min BP sys 2018-10-12 13:19:23 123.0000 mm[Hg] Body temperature 2018-10-12 13:19:23 97.2000 [degF] Weight 2018-10-12 13:19:23 141.6000 [lb_av] BMI 2018-08-09 11:09:57 27.6500 BP javier 2018-08-09 11:09:57 97.0000 mm[Hg] Bdy height 2018-08-09 11:09:57 60.3000 [in_i] SaO2% BldA PulseOx 2018-08-09 11:09:57 94.0000 % Heart rate 2018-08-09 11:09:57 87.0000 /min Resp rate 2018-08-09 11:09:57 20.0000 /min BP sys 2018-08-09 11:09:57 158.0000 mm[Hg] Body temperature 2018-08-09 11:09:57 96.4000 [degF] Weight 2018-08-09 11:09:57 143.0000 [lb_av] BMI 2018-07-14 11:21:33 26.4900 BP javier 2018-07-14 11:21:33 56.0000 mm[Hg] Bdy height 2018-07-14 11:21:33 60.3000 [in_i] SaO2% BldA PulseOx 2018-07-14 11:21:33 92.0000 % Heart rate 2018-07-14 11:21:33 135.0000 /min Resp rate 2018-07-14 11:21:33 18.0000 /min BP sys 2018-07-14 11:21:33 110.0000 mm[Hg] Body temperature 2018-07-14 11:21:33 99.6000 [degF] Weight 2018-07-14 11:21:33 137.0000 [lb_av] SYSTOLIC BLOOD PRESSURE 2018-06-24 10:09:00 118 mm[Hg] DIASTOLIC BLOOD PRESSURE 2018-06-24 10:09:00 64 mm[Hg] HEART RATE 2018-06-24 10:09:00 62 /min RESPIRATORY RATE 2018-06-24 10:09:00 16 /min OXYGEN SATURATION 2018-06-24 10:09:00 99 % BODY TEMPERATURE 2018-06-24 06:00:00 36.78 Sheree WEIGHT 2018-06-23 12:00:00 60 kg BODY MASS INDEX 2018-06-23 12:00:00 20.72 kg/m2 BMI 2018-06-13 11:35:50 26.6100 BP javier 2018-06-13 11:35:50 71.0000 mm[Hg] Bdy height 2018-06-13 11:35:50 60.3000 [in_i] Heart rate 2018-06-13 11:35:50 70.0000 /min Resp rate 2018-06-13 11:35:50 20.0000 /min BP sys 2018-06-13 11:35:50 121.0000 mm[Hg] Body temperature 2018-06-13 11:35:50 97.1000 [degF] Weight 2018-06-13 11:35:50 137.6000 [lb_av] SYSTOLIC BLOOD PRESSURE 2018-06-07 17:15:00 148 mm[Hg] DIASTOLIC BLOOD PRESSURE 2018-06-07 17:15:00 74 mm[Hg] HEART RATE 2018-06-07 17:15:00 78 /min RESPIRATORY RATE 2018-06-07 17:15:00 16 /min OXYGEN SATURATION 2018-06-07 17:15:00 100 % BODY TEMPERATURE 2018-06-07 10:00:00 36.78 Sheree WEIGHT 2018-06-06 07:00:00 60 kg BODY MASS INDEX 2018-06-06 07:00:00 20.72 kg/m2 BMI 2018-05-12 14:35:33 26.0700 BP javier 2018-05-12 14:35:33 74.0000 mm[Hg] Bdy height 2018-05-12 14:35:33 60.3000 [in_i] SaO2% BldA PulseOx 2018-05-12 14:35:33 96.0000 % Heart rate 2018-05-12 14:35:33 89.0000 /min Resp rate 2018-05-12 14:35:33 14.0000 /min BP sys 2018-05-12 14:35:33 109.0000 mm[Hg] Body temperature 2018-05-12 14:35:33 97.3000 [degF] Weight 2018-05-12 14:35:33 134.8000 [lb_av] BMI 2018-04-07 14:06:32 25.9500 BP javier 2018-04-07 14:06:32 93.0000 mm[Hg] Bdy height 2018-04-07 14:06:32 60.3000 [in_i] Heart rate 2018-04-07 14:06:32 82.0000 /min Resp rate 2018-04-07 14:06:32 16.0000 /min BP sys 2018-04-07 14:06:32 120.0000 mm[Hg] Body temperature 2018-04-07 14:06:32 97.1000 [degF] Weight 2018-04-07 14:06:32 134.2000 [lb_av] BMI 2017-04-07 13:17:48 27.6900 BP javier 2017-04-07 13:17:48 81.0000 mm[Hg] Bdy height 2017-04-07 13:17:48 60.3000 [in_i] Heart rate 2017-04-07 13:17:48 79.0000 /min Resp rate 2017-04-07 13:17:48 16.0000 /min BP sys 2017-04-07 13:17:48 132.0000 mm[Hg] Body temperature 2017-04-07 13:17:48 97.6000 [degF] Weight 2017-04-07 13:17:48 143.2000 [lb_av] BMI 2016-03-26 14:19:58 27.9600 BP javier 2016-03-26 14:19:58 75.0000 mm[Hg] Bdy height 2016-03-26 14:19:58 60.3000 [in_i] SaO2% BldA PulseOx 2016-03-26 14:19:58 96.0000 % Heart rate 2016-03-26 14:19:58 66.0000 /min Resp rate 2016-03-26 14:19:58 20.0000 /min BP sys 2016-03-26 14:19:58 125.0000 mm[Hg] Body temperature 2016-03-26 14:19:58 96.8000 [degF] Weight 2016-03-26 14:19:58 144.6000 [lb_av] BMI 2015-08-19 15:53:25 27.7300 BP javier 2015-08-19 15:53:25 57.0000 mm[Hg] Bdy height 2015-08-19 15:53:25 60.3000 [in_i] Heart rate 2015-08-19 15:53:25 63.0000 /min Resp rate 2015-08-19 15:53:25 16.0000 /min BP sys 2015-08-19 15:53:25 148.0000 mm[Hg] Body temperature 2015-08-19 15:53:25 97.5000 [degF] Weight 2015-08-19 15:53:25 143.4000 [lb_av] BMI 2015-06-11 16:08:04 27.7700 BP javier 2015-06-11 16:08:04 84.0000 mm[Hg] Bdy height 2015-06-11 16:08:04 60.3000 [in_i] SaO2% BldA PulseOx 2015-06-11 16:08:04 98.0000 % Heart rate 2015-06-11 16:08:04 71.0000 /min Resp rate 2015-06-11 16:08:04 18.0000 /min BP sys 2015-06-11 16:08:04 137.0000 mm[Hg] Body temperature 2015-06-11 16:08:04 98.3000 [degF] Weight 2015-06-11 16:08:04 143.6000 [lb_av] BMI 2015-02-14 16:21:39 27.7300 BP javier 2015-02-14 16:21:39 62.0000 mm[Hg] Bdy height 2015-02-14 16:21:39 60.3000 [in_i] Heart rate 2015-02-14 16:21:39 59.0000 /min Resp rate 2015-02-14 16:21:39 18.0000 /min BP sys 2015-02-14 16:21:39 105.0000 mm[Hg] Body temperature 2015-02-14 16:21:39 98.0000 [degF] Weight 2015-02-14 16:21:39 143.4000 [lb_av] BMI 2014-09-20 14:38:31 27.1500 BP javier 2014-09-20 14:38:31 79.0000 mm[Hg] Bdy height 2014-09-20 14:38:31 60.3000 [in_i] Heart rate 2014-09-20 14:38:31 68.0000 /min Resp rate 2014-09-20 14:38:31 16.0000 /min BP sys 2014-09-20 14:38:31 126.0000 mm[Hg] Body temperature 2014-09-20 14:38:31 97.6000 [degF] Weight 2014-09-20 14:38:31 140.4000 [lb_av] BMI 2014-07-20 16:19:59 26.1800 BP javier 2014-07-20 16:19:59 89.0000 mm[Hg] Bdy height 2014-07-20 16:19:59 60.3000 [in_i] SaO2% BldA PulseOx 2014-07-20 16:19:59 96.0000 % Heart rate 2014-07-20 16:19:59 76.0000 /min Resp rate 2014-07-20 16:19:59 18.0000 /min BP sys 2014-07-20 16:19:59 145.0000 mm[Hg] Body temperature 2014-07-20 16:19:59 98.2000 [degF] Weight 2014-07-20 16:19:59 135.4000 [lb_av] BMI 2014-03-09 11:57:23 25.7200 BP javier 2014-03-09 11:57:23 79.0000 mm[Hg] Bdy height 2014-03-09 11:57:23 60.3000 [in_i] Heart rate 2014-03-09 11:57:23 80.0000 /min Resp rate 2014-03-09 11:57:23 16.0000 /min BP sys 2014-03-09 11:57:23 126.0000 mm[Hg] Body temperature 2014-03-09 11:57:23 97.9000 [degF] Weight 2014-03-09 11:57:23 133.0000 [lb_av] BMI 2014-02-23 14:58:51 25.6400 BP javier 2014-02-23 14:58:51 79.0000 mm[Hg] Bdy height 2014-02-23 14:58:51 60.3000 [in_i] Heart rate 2014-02-23 14:58:51 64.0000 /min Resp rate 2014-02-23 14:58:51 18.0000 /min BP sys 2014-02-23 14:58:51 132.0000 mm[Hg] Body temperature 2014-02-23 14:58:51 97.6000 [degF] Weight 2014-02-23 14:58:51 132.6000 [lb_av] BMI 2013-11-17 09:22:33 27.0300 BP javier 2013-11-17 09:22:33 73.0000 mm[Hg] Bdy height 2013-11-17 09:22:33 60.3000 [in_i] Heart rate 2013-11-17 09:22:33 78.0000 /min Resp rate 2013-11-17 09:22:33 16.0000 /min BP sys 2013-11-17 09:22:33 114.0000 mm[Hg] Body temperature 2013-11-17 09:22:33 97.2000 [degF] Weight 2013-11-17 09:22:33 139.8000 [lb_av] BMI 2013-08-14 14:39:31 26.1000 BP javier 2013-08-14 14:39:31 86.0000 mm[Hg] Bdy height 2013-08-14 14:39:31 60.3000 [in_i] SaO2% BldA PulseOx 2013-08-14 14:39:31 98.0000 % Heart rate 2013-08-14 14:39:31 79.0000 /min Resp rate 2013-08-14 14:39:31 16.0000 /min BP sys 2013-08-14 14:39:31 138.0000 mm[Hg] Body temperature 2013-08-14 14:39:31 97.6000 [degF] Weight 2013-08-14 14:39:31 135.0000 [lb_av] BMI 2013-07-25 15:40:05 26.4100 BP javier 2013-07-25 15:40:05 80.0000 mm[Hg] Bdy height 2013-07-25 15:40:05 60.3000 [in_i] SaO2% BldA PulseOx 2013-07-25 15:40:05 98.0000 % Heart rate 2013-07-25 15:40:05 80.0000 /min Resp rate 2013-07-25 15:40:05 16.0000 /min BP sys 2013-07-25 15:40:05 123.0000 mm[Hg] Body temperature 2013-07-25 15:40:05 98.5000 [degF] Weight 2013-07-25 15:40:05 136.6000 [lb_av] BMI 2013-05-23 15:25:07 26.8000 BP javier 2013-05-23 15:25:07 89.0000 mm[Hg] Bdy height 2013-05-23 15:25:07 60.3000 [in_i] Heart rate 2013-05-23 15:25:07 82.0000 /min Resp rate 2013-05-23 15:25:07 18.0000 /min BP sys 2013-05-23 15:25:07 137.0000 mm[Hg] Body temperature 2013-05-23 15:25:07 98.3000 [degF] Weight 2013-05-23 15:25:07 138.6000 [lb_av] BMI 2013-03-22 14:00:04 26.4900 BP javier 2013-03-22 14:00:04 83.0000 mm[Hg] Bdy height 2013-03-22 14:00:04 60.3000 [in_i] Heart rate 2013-03-22 14:00:04 74.0000 /min Resp rate 2013-03-22 14:00:04 16.0000 /min BP sys 2013-03-22 14:00:04 125.0000 mm[Hg] Body temperature 2013-03-22 14:00:04 98.3000 [degF] Weight 2013-03-22 14:00:04 137.0000 [lb_av] BMI 2013-02-07 13:45:31 26.2600 BP javier 2013-02-07 13:45:31 87.0000 mm[Hg] Bdy height 2013-02-07 13:45:31 60.3000 [in_i] Heart rate 2013-02-07 13:45:31 68.0000 /min Resp rate 2013-02-07 13:45:31 18.0000 /min BP sys 2013-02-07 13:45:31 131.0000 mm[Hg] Body temperature 2013-02-07 13:45:31 97.9000 [degF] Weight 2013-02-07 13:45:31 135.8000 [lb_av] BMI 2013-01-16 11:37:59 26.1800 BP javier 2013-01-16 11:37:59 80.0000 mm[Hg] Bdy height 2013-01-16 11:37:59 60.3000 [in_i] Heart rate 2013-01-16 11:37:59 82.0000 /min Resp rate 2013-01-16 11:37:59 16.0000 /min BP sys 2013-01-16 11:37:59 115.0000 mm[Hg] Body temperature 2013-01-16 11:37:59 98.3000 [degF] Weight 2013-01-16 11:37:59 135.4000 [lb_av] BMI 2013-01-02 12:34:30 32.1800 BP javier 2013-01-02 12:34:30 81.0000 mm[Hg] Bdy height 2013-01-02 12:34:30 60.3000 [in_i] Heart rate 2013-01-02 12:34:30 88.0000 /min Resp rate 2013-01-02 12:34:30 16.0000 /min BP sys 2013-01-02 12:34:30 112.0000 mm[Hg] Body temperature 2013-01-02 12:34:30 97.3000 [degF] Weight 2013-01-02 12:34:30 166.4000 [lb_av] BMI 2012-12-26 10:40:23 26.2600 BP javier 2012-12-26 10:40:23 87.0000 mm[Hg] Bdy height 2012-12-26 10:40:23 60.3000 [in_i] Heart rate 2012-12-26 10:40:23 81.0000 /min Resp rate 2012-12-26 10:40:23 16.0000 /min BP sys 2012-12-26 10:40:23 123.0000 mm[Hg] Body temperature 2012-12-26 10:40:23 97.3000 [degF] Weight 2012-12-26 10:40:23 135.8000 [lb_av] BMI 2012-12-05 10:47:49 25.8700 BP javier 2012-12-05 10:47:49 79.0000 mm[Hg] Bdy height 2012-12-05 10:47:49 60.3000 [in_i] Heart rate 2012-12-05 10:47:49 87.0000 /min Resp rate 2012-12-05 10:47:49 16.0000 /min BP sys 2012-12-05 10:47:49 123.0000 mm[Hg] Body temperature 2012-12-05 10:47:49 98.0000 [degF] Weight 2012-12-05 10:47:49 133.8000 [lb_av] BMI 2012-11-21 10:48:29 25.9100 BP javier 2012-11-21 10:48:29 79.0000 mm[Hg] Bdy height 2012-11-21 10:48:29 60.3000 [in_i] Heart rate 2012-11-21 10:48:29 83.0000 /min Resp rate 2012-11-21 10:48:29 16.0000 /min BP sys 2012-11-21 10:48:29 118.0000 mm[Hg] Body temperature 2012-11-21 10:48:29 98.4000 [degF] Weight 2012-11-21 10:48:29 134.0000 [lb_av] BMI 2012-11-07 14:18:55 25.7600 BP javier 2012-11-07 14:18:55 85.0000 mm[Hg] Bdy height 2012-11-07 14:18:55 60.3000 [in_i] Heart rate 2012-11-07 14:18:55 85.0000 /min Resp rate 2012-11-07 14:18:55 16.0000 /min BP sys 2012-11-07 14:18:55 126.0000 mm[Hg] Body temperature 2012-11-07 14:18:55 97.5000 [degF] Weight 2012-11-07 14:18:55 133.2000 [lb_av] BMI 2012-10-31 14:01:38 25.4900 BP javier 2012-10-31 14:01:38 90.0000 mm[Hg] Bdy height 2012-10-31 14:01:38 60.3000 [in_i] Heart rate 2012-10-31 14:01:38 80.0000 /min Resp rate 2012-10-31 14:01:38 16.0000 /min BP sys 2012-10-31 14:01:38 124.0000 mm[Hg] Body temperature 2012-10-31 14:01:38 99.4000 [degF] Weight 2012-10-31 14:01:38 131.8000 [lb_av] BMI 2012-10-24 13:50:23 25.3300 BP javier 2012-10-24 13:50:23 88.0000 mm[Hg] Bdy height 2012-10-24 13:50:23 60.3000 [in_i] Heart rate 2012-10-24 13:50:23 72.0000 /min Resp rate 2012-10-24 13:50:23 18.0000 /min BP sys 2012-10-24 13:50:23 123.0000 mm[Hg] Body temperature 2012-10-24 13:50:23 97.9000 [degF] Weight 2012-10-24 13:50:23 131.0000 [lb_av] BMI 2012-10-17 14:07:17 25.1800 BP javier 2012-10-17 14:07:17 88.0000 mm[Hg] Bdy height 2012-10-17 14:07:17 60.3000 [in_i] Heart rate 2012-10-17 14:07:17 89.0000 /min Resp rate 2012-10-17 14:07:17 16.0000 /min BP sys 2012-10-17 14:07:17 124.0000 mm[Hg] Body temperature 2012-10-17 14:07:17 97.9000 [degF] Weight 2012-10-17 14:07:17 130.2000 [lb_av] BMI 2012-10-10 13:16:44 25.4100 BP javier 2012-10-10 13:16:44 90.0000 mm[Hg] Bdy height 2012-10-10 13:16:44 60.3000 [in_i] Heart rate 2012-10-10 13:16:44 72.0000 /min Resp rate 2012-10-10 13:16:44 16.0000 /min BP sys 2012-10-10 13:16:44 127.0000 mm[Hg] Body temperature 2012-10-10 13:16:44 99.0000 [degF] Weight 2012-10-10 13:16:44 131.4000 [lb_av] BMI 2012-10-03 13:10:49 25.6800 BP javier 2012-10-03 13:10:49 88.0000 mm[Hg] Bdy height 2012-10-03 13:10:49 60.3000 [in_i] Heart rate 2012-10-03 13:10:49 81.0000 /min Resp rate 2012-10-03 13:10:49 16.0000 /min BP sys 2012-10-03 13:10:49 118.0000 mm[Hg] Body temperature 2012-10-03 13:10:49 98.4000 [degF] Weight 2012-10-03 13:10:49 132.8000 [lb_av] BMI 2012-09-26 09:47:25 25.8300 BP javier 2012-09-26 09:47:25 90.0000 mm[Hg] Bdy height 2012-09-26 09:47:25 60.3000 [in_i] Heart rate 2012-09-26 09:47:25 79.0000 /min Resp rate 2012-09-26 09:47:25 16.0000 /min BP sys 2012-09-26 09:47:25 142.0000 mm[Hg] Body temperature 2012-09-26 09:47:25 98.5000 [degF] Weight 2012-09-26 09:47:25 133.6000 [lb_av] BMI 2012-09-09 10:01:06 25.9500 BP javier 2012-09-09 10:01:06 89.0000 mm[Hg] Bdy height 2012-09-09 10:01:06 60.3000 [in_i] BP sys 2012-09-09 10:01:06 156.0000 mm[Hg] Body temperature 2012-09-09 10:01:06 99.8000 [degF] Weight 2012-09-09 10:01:06 134.2000 [lb_av] BMI 2012-06-14 15:32:54 26.1400 BP javier 2012-06-14 15:32:54 88.0000 mm[Hg] Bdy height 2012-06-14 15:32:54 60.3000 [in_i] Heart rate 2012-06-14 15:32:54 80.0000 /min Resp rate 2012-06-14 15:32:54 16.0000 /min BP sys 2012-06-14 15:32:54 134.0000 mm[Hg] Body temperature 2012-06-14 15:32:54 100.1000 [degF] Weight 2012-06-14 15:32:54 135.2000 [lb_av] Hospital Discharge Instructions Ha Keller RN - 06/24/2018 [facility] Post Procedure PatientInstructions Remove the bandages on the pin sites the next day. Apply fresh bandages every day untilthere is no more drainage from the pin sites. You may have drainage for 1 to 3 days. You may gently wash your hair on the third day after your treatment. It is okay to get the pin sites wet. Do not usehair spray, mousee, gels, hair color, permanents, or any prodcut that may cause irritation until thepin sites have completely healed. The pin sites should heal in 7-21 days. Blood-tinged water may be seen when you wash your hair. This may be from dried blood in your hair after head frame placement and removal. Swelling around the eyes may happen after treatment. This is sometimes from the injection used to numb the pin sites. Keeping your head elevated is the host helpful treatment. Elevate your head when you sleep to help reduce swelling. You may also apply cool compresses or an ice pack to the swollen area three times a day for 20 minutes at a time. The swelling should go down within 5 to 7 days. Some patients have tingling or scalp numbness above the pin sites. This can be short-term or become permanent. You may return to work or school within 48 hours or sooner if you feel well enough. You may resume all other regular activities within 48 hours (unless your doctor has instructed you otherwise). You may resume your regular diet right away. Call the [facility] if you develop the followin. Signs of infection: more redness, swelling, drainage, or pain at the pin sites, and / or fever of 100.5 F or higher. 2. New seizures 3. Worsening headaches, especially if you also have nauseaand vomiting. 4. Trouble walking or not feeling steady on your feet. 5. Numbness / tingling in arms,legs, face or trunk. 6. Trouble swallowing or choking. 7. Confusion or change in behavior. 8. Trouble with urination or bowel movements. 9. Weakness in face, arms, or legs, or new vison problems. If you have any questions or concerns, please call the [facility] at [phone] Dr. Phuc Goodson [phone] or [phone] Dr. Alex Menon [phone] Vincent Keller RN, [facility] [phone] in this encounterHa Keller RN - 06/07/2018 [facility] Post Procedure PatientInstructions Remove the bandages on the pin sites the next day. Apply fresh bandages every day untilthere is no more drainage from the pin sites. You may have drainage for 1 to 3 days. You may gently wash your hair on the third day after your treatment. It is okay to get the pin sites wet. Do not usehair spray, mousee, gels, hair color, permanents, or any prodcut that may cause irritation until thepin sites have completely healed. The pin sites should heal in 7-21 days. Blood-tinged water may be seen when you wash your hair. This may be from dried blood in your hair after head frame placement and removal. Swelling around the eyes may happen after treatment. This is sometimes from the injection used to numb the pin sites. Keeping your head elevated is the host helpful treatment. Elevate your head when you sleep to help reduce swelling. You may also apply cool compresses or an ice pack to the swollen area three times a day for 20 minutes at a time. The swelling should go down within 5 to 7 days. Some patients have tingling or scalp numbness above the pin sites. This can be short-term or become permanent. You may return to work or school within 48 hours or sooner if you feel well enough. You may resume all other regular activities within 48 hours (unless your doctor has instructed you otherwise). You may resume your regular diet right away. Call the [facility] if you develop the followin. Signs of infection: more redness, swelling, drainage, or pain at the pin sites, and / or fever of 100.5 F or higher. 2. New seizures 3. Worsening headaches, especially if you also have nauseaand vomiting. 4. Trouble walking or not feeling steady on your feet. 5. Numbness / tingling in arms,legs, face or trunk. 6. Trouble swallowing or choking. 7. Confusion or change in behavior. 8. Trouble with urination or bowel movements. 9. Weakness in face, arms, or legs, or new vison problems. If you have any questions or concerns, please call the [facility] at [phone] Dr. Phuc Goodson [phone] or [phone] Dr. Alex Menon [phone] Vincent Keller RN, [facility] [phone] in this encounter
== END ==
LOC: RAD 08:47
PROVIDERS: ATTEND Physician Assistant Medical
DX: C34.12 Malignant neoplasm of upper lobe, left bronchus or lung (principal); E04.1 Nontoxic single thyroid nodule; D18.09 Hemangioma of other sites
CPT/HCPCS: 71260; 74177; 82565